=== PATIENT | female | born 1960 | race Caucasian/White ===

== ENCOUNTER 2020-04-15 16:38 | Outpatient (REF) | payer OTHER, SELFPAY ==
--- NOTE | 2020-04-15 | MM_ITS ---
EXAMINATION: MM SCREENING DIGITAL BREAST TOMOSYNTHESIS, BILATERAL CLINICAL INFORMATION: Screening. Asymptomatic. Prior bilateral reduction mammoplasty 1998. The lifetime risk of breast cancer based on the Tyrer-Cuzick Model is 3%. COMPARISON: Mammography: 02/21/2018, 01/20/2017, 01/17/2016 TECHNIQUE: Digital breast tomosynthesis is performed in both the craniocaudal and mediolateral oblique views along with computer-aided detection (CAD). Synthesized 2D images are generated from the tomosynthesis. FINDINGS: There are scattered areas of fibroglandular density (ACR BI-RADS breast composition Category b). Breast tissue composition borders on predominantly fatty. Background fibroglandular and stromal densities are stable. Again, there are benign round calcifications in the bilateral superficial anterior breasts consistent with the prior reduction mammoplasty. There is no interval mass or architectural abnormality or abnormal calcifications. The axilla are unremarkable. IMPRESSION: No significant changes from prior studies. ASSESSMENT: BI-RADS 2: Benign RECOMMENDATION: Routine annual mammography screening. This patient's information was entered into a reminder system with a target due date for their next mammogram.
== END 2020-04-15 16:39 | disposition home or self-care (01) ==
LOC: HO.MAMMO 16:38
PROVIDERS: Visit Provider Nurse Practitioner Family
DX: Z12.31 Encounter for screening mammogram for malignant neoplasm of breast (principal)
CPT/HCPCS: 77063; 77067

== ENCOUNTER 2020-05-02 16:44 | Outpatient (REF) | payer OTHER, SELFPAY | END 2020-05-02 16:45 | disposition home or self-care (01) | LOC: HO.LAB 16:44 | PROVIDERS: PCP Nurse Practitioner Family; Visit Provider Internal Medicine | DX: Z20.828 Contact with and (suspected) exposure to other viral communicable diseases (principal) | CPT/HCPCS: C9803; U0003 ==

== ENCOUNTER 2020-05-31 12:54 | Outpatient (REF) | payer OTHER, SELFPAY | END 2020-05-31 12:55 | disposition home or self-care (01) | LOC: HO.LAB 12:54 | PROVIDERS: Visit Provider Internal Medicine | DX: Z20.828 Contact with and (suspected) exposure to other viral communicable diseases (principal) | CPT/HCPCS: C9803; U0003 ==

== ENCOUNTER → 2020-10-28 07:45 | Outpatient (BNVA) | payer OTHER, SELFPAY | PROVIDERS: Visit Provider Physician Assistant ==

== ENCOUNTER 2021-01-20 13:39 | Outpatient (REF) | payer OTHER, SELFPAY | END 2021-01-20 13:40 | disposition home or self-care (01) | LOC: HO.LNP 13:39 | PROVIDERS: Visit Provider Physician Assistant | DX: A04.8 Other specified bacterial intestinal infections (principal) | CPT/HCPCS: 87338 ==

== ENCOUNTER 2021-02-03 07:28 | Outpatient (REF) | payer OTHER, SELFPAY ==
[2021-02-03 09:44] LABS: MANUAL DIFF FLAG NO
[2021-02-03 09:58] LABS: Basophils Percent Auto 0.3 % (0-2); Eosinophils Absolute Auto 0.1 X10*3/uL (0.0-0.4); Eosinophils Percent Auto 0.8 % (0-4); Hematocrit 39.4 % (37-47); Hemoglobin 12.8 g/dl (12.0-16.0); Imm Gran Abs Auto 0.02 X10*3/uL (0.00-0.03); Imm Gran Pct Auto 0.3 % (0.0-0.4); Lymphocytes Absolute Auto 1.8 X10*3/uL (1.2-4.9); Lymphocytes Percent Auto 22.6 % (20-40); Mean Corpuscular HGB Conc 32.5 g/dl (31.0-35.0); Mean Corpuscular Hemoglobin 30.2 pg (27.0-33.0); Mean Corpuscular Volume 92.9 fL (80-98); Monocytes Absolute Auto 0.5 X10*3/uL (0.1-1.2); Monocytes Percent Auto 5.9 % (2-11); Neutrophils Absolute Auto 5.6 X10*3/uL (2.0-8.3); Neutrophils Percent Auto 70.1 % (45-73); Platelet Count 248 X10*3/uL (160-400); Red Blood Count 4.24 X10*6/uL (4.20-5.50); Red Cell Distribution Width 11.8 % (11.0-16.0)
[2021-02-03 10:09] LABS: Alanine Aminotransferase 17 U/L (0-31); Albumin Level 4.1 g/dL (3.5-5.0); Alkaline Phosphatase 141 U/L (39-117); Anion Gap 13 (12-20); Aspartate Amino Transferase 16 U/L (5-31); Bilirubin Total 0.2 mg/dL (0.0-1.0); Blood Urea Nitrogen 17 mg/dL (9-16); Calcium 9.1 mg/dL (8.4-10.2); Carbon Dioxide 28 mmol/L (22-29); Chloride 104 mmol/L (96-108); Estimated Glomerular Filt Rate > 60; Glucose Random 246 mg/dL (60-115); Potassium 4.9 mmol/L (3.3-5.1); Sodium 140 mmol/L (135-145); Total Protein 7.2 g/dL (6.5-8.0)
[2021-02-03 10:32] LABS: Thyroid Stimulating Hormone 1.11 uIU/mL (0.32-4.0)
== END 2021-02-03 07:29 | disposition home or self-care (01) ==
LOC: HO.LAB 07:28
PROVIDERS: PCP Nurse Practitioner Family; Visit Provider Physician Assistant
DX: R10.11 Right upper quadrant pain (principal); A04.8 Other specified bacterial intestinal infections; K59.09 Other constipation; K62.5 Hemorrhage of anus and rectum
CPT/HCPCS: 36415; 80053; 84443; 85025

== ENCOUNTER 2021-02-14 08:54 | Outpatient (REF) | payer OTHER, SELFPAY ==
--- NOTE | ~2021-02-14 | US_ITS ---
EXAMINATION: US ABDOMEN COMPLETE CLINICAL INFORMATION: Abdominal bloating. COMPARISON: CT abdomen and pelvis 05/31/2014. KUB 06/13/2014. Renal ultrasound 01/09/2014. Abdominal ultrasound 04/14/2010. TECHNIQUE: Real-time imaging of the abdominal viscera. FINDINGS: PANCREAS: Normal. ABDOMINAL AORTA: The proximal, mid, and distal segments are normal in caliber. INFERIOR VENA CAVA: Visualized portions are normal. LIVER: The liver is normal in size. The liver contour is normal. No focal hepatic lesion. Diffuse increased echogenicity. Mild prominence of the intrahepatic ductal system. GALLBLADDER: Normal. The gallbladder is physiologically distended without evidence of stones, sludge, polyps, wall thickening or pericholecystic fluid. COMMON BILE DUCT: Normal in caliber measuring 0.44 cm in diameter. RIGHT KIDNEY: Normal. No hydronephrosis. No renal calculi or focal parenchymal lesions. The kidney measures 10.2 cm in maximum dimension. LEFT KIDNEY mid pole nonobstructing stone measures: 2 mm. No hydronephrosis. No other renal calculi or focal parenchymal lesions. The kidney measures 12.1 cm in maximum dimension. SPLEEN: Normal. The spleen measures 10.4 cm in maximum dimension. FREE FLUID: None. US/US abdomen complete IMPRESSION: No gallstones. Nonobstructing left renal calculus. Changes of hepatic steatosis. There is mild prominence of the intrahepatic biliary ductal radicals of uncertain significance. No choledocholithiasis or gross mass. Consider MRI with MRCP for further assessment especially if there are abnormal LFTs.
== END 2021-02-14 08:55 | disposition home or self-care (01) ==
LOC: HO.HMGCX 08:54
PROVIDERS: PCP Nurse Practitioner Family; Visit Provider Nurse Practitioner Family
DX: R14.0 Abdominal distension (gaseous) (principal)
CPT/HCPCS: 76700

== ENCOUNTER 2021-02-17 10:41 | Outpatient (REF) | payer OTHER, SELFPAY | END 2021-02-17 10:42 | disposition home or self-care (01) | LOC: HO.LNP 10:41 | PROVIDERS: Visit Provider Physician Assistant | DX: A04.8 Other specified bacterial intestinal infections (principal) | CPT/HCPCS: 87338 ==

== ENCOUNTER 2021-03-10 12:10 | Day surgery (SDC) | payer OTHER, SELFPAY ==
[2021-03-05 15:01] VITALS: BMI 31.5
--- NOTE | 2021-03-07 10:18 | P.CONAN_ITS ---
Documented by User: Gina Abbott NP 03/07/21 10:19 HPI - Anesthesia Eval Consult details Narrative: 60yo F for Upper Endoscopy and Colonoscopy PMFSH Active Problems Active Problems: All Active Problems (Updated 03/05/21 @ 14:56 by Mariana Mckeon RN) H. pylori infection (Acute) Rheumatoid arthritis flare (Acute) Chronic constipation (Acute) Diabetes (Acute) Past Medical History Medical History Anxiety Chronic constipation Diabetes Elevated cholesterol GERD (gastroesophageal reflux disease) Family History Family History Mother Diabetes Father Diabetes Prostate cancer Sister Diabetes Liver cancer Surgical History Surgical History H/O colonoscopy Hx of cystoscopy Hx of lithotripsy Social History Social History Household Members: None Alcohol intake: never Patient Tobacco Use Status: Tobacco use Unknown Use of substances other than those prescribed or required for medical reasons: No Have you been hit, kicked, punched, or otherwise hurt by someone within the past year? 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 Allergies Allergy/AdvReac Type Severity Reaction Status Date / Time metformin [METFORMIN] Allergy Unknown DIARRHEA/STOMACH Verified 02/14/21 10:33 PAIN Home Medications Medication Instructions Recorded Confirmed Last Taken Type atorvastatin 40 mg tablet 40 mg PO DAILY 10/28/20 03/05/21 Unknown History bupropion HCl 300 mg 24 hr tablet, 300 mg PO QAM 10/28/20 03/05/21 03/10/21 History extended release calcium carbonate 300 mg (750 mg) 300 mg PO BID 10/28/20 03/05/21 Unknown History chewable tablet (Calcium Antacid) dulaglutide 3 mg/0.5 mL 3 mg SUBCUT QWEEK 10/28/20 03/05/21 Unknown History subcutaneous pen injector (Trulicity) etanercept 50 mg/mL (1 mL) 50 mg SUBCUT QWEEK 10/28/20 03/05/21 Unknown History subcutaneous syringe (Enbrel) folic acid 1 mg tablet 1 mg PO DAILY 10/28/20 03/05/21 Unknown History glipizide 10 mg tablet 10 mg PO DAILY 10/28/20 03/05/21 Unknown History lisinopril 10 mg tablet 10 mg PO DAILY 10/28/20 03/05/21 Unknown History lorazepam 0.5 mg tablet 0.5 mg PO DAILY PRN 10/28/20 03/05/21 Unknown History magnesium 200 mg tablet 400 mg PO DAILY tab 10/28/20 03/05/21 Unknown History multivitamin with minerals-folic 1 tab PO DAILY 10/28/20 03/05/21 Unknown History acid 0.4 mg tablet (Adult One Daily Multivitamin) Exam Exam Date and Time: March 07, 2021 1018 Height,Weight and Vital Signs: Height 5 ft 1 in Weight 75.75 kg Pertinent Lab Results Pertinent Lab Results: Laboratory Tests 02/03/21 02/03/21 09:00 09:00 WBC 8.0 Hgb 12.8 Hct 39.4 Plt Count 248 Sodium 140 Potassium 4.9 Chloride 104 Carbon Dioxide 28 BUN 17 H Creatinine 0.90 Assessment and Plan Assessment Anesthesia Assessment: Chart Reviewed Documented by User: Sandra Blanco MD 03/10/21 14:43 [facility] Past Medical History Medical History Anxiety Chronic constipation Diabetes Elevated cholesterol GERD (gastroesophageal reflux disease) Family History Family History Mother Diabetes Father Diabetes Prostate cancer Sister Diabetes Liver cancer Family history of problems with anesthesia: No Surgical History Surgical History H/O colonoscopy Hx of cystoscopy Hx of lithotripsy History of Problems with Anesthesia: No Social History Social History Household Members: None Alcohol intake: never Patient Tobacco Use Status: Tobacco use Unknown Use of substances other than those prescribed or required for medical reasons: No Have you been hit, kicked, punched, or otherwise hurt by someone within the past year? 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 Allergies Allergy/AdvReac Type Severity Reaction Status Date / Time metformin [METFORMIN] Allergy Unknown DIARRHEA/STOMACH Verified 02/14/21 10:33 PAIN Home Medications Medication Instructions Recorded Confirmed Last Taken Type atorvastatin 40 mg tablet 40 mg PO DAILY 10/28/20 03/05/21 Unknown History bupropion HCl 300 mg 24 hr tablet, 300 mg PO QAM 10/28/20 03/05/21 03/10/21 History extended release calcium carbonate 300 mg (750 mg) 300 mg PO BID 10/28/20 03/05/21 Unknown History chewable tablet (Calcium Antacid) dulaglutide 3 mg/0.5 mL 3 mg SUBCUT QWEEK 10/28/20 03/05/21 Unknown History subcutaneous pen injector (Trulicity) etanercept 50 mg/mL (1 mL) 50 mg SUBCUT QWEEK 10/28/20 03/05/21 Unknown History subcutaneous syringe (Enbrel) folic acid 1 mg tablet 1 mg PO DAILY 10/28/20 03/05/21 Unknown History glipizide 10 mg tablet 10 mg PO DAILY 10/28/20 03/05/21 Unknown History lisinopril 10 mg tablet 10 mg PO DAILY 10/28/20 03/05/21 Unknown History lorazepam 0.5 mg tablet 0.5 mg PO DAILY PRN 10/28/20 03/05/21 Unknown History magnesium 200 mg tablet 400 mg PO DAILY tab 10/28/20 03/05/21 Unknown History multivitamin with minerals-folic 1 tab PO DAILY 10/28/20 03/05/21 Unknown History acid 0.4 mg tablet (Adult One Daily Multivitamin) Exam Height,Weight and Vital Signs: Height 5 ft 1 in Weight 75.75 kg Vital Signs Temp Pulse Resp BP Pulse Ox 03/10/21 12:48 98.1 F 94 16 154/90 H 98 Pertinent Lab Results Pertinent Lab Results: Laboratory Tests 02/03/21 02/03/21 09:00 09:00 WBC 8.0 Hgb 12.8 Hct 39.4 Plt Count 248 Sodium 140 Potassium 4.9 Chloride 104 Carbon Dioxide 28 BUN 17 H Creatinine 0.90 Lab Results 03/10/21 Range/Units 12:53 POC Glucose 127 H (60-115) mg/dL Airway Mallampati Class: II TM Dist: >3cm Neck ROM: Full Partial: Upper Heart: RRR Lungs: CTAB Assessment and Plan Assessment Anesthesia Assessment: Anesthesia Plan Discussed Final Anesthetic Review Family History of Problems with Anesthesia: No History of Problems with Anesthesia: No NPO: Yes ASA Class: II Final Preanesthetic Review: No Changes in Pt Med Stat, Meds/Allgs Chart Reviewed, Consent Obtained/Reviewed and Anes Risks/Benef Reviewed Patient Risk: Low Procedure Risk: Low Assessment/Block/Sedation in SS: Assess/Block/Sedation-SS Anesthetic Plan Anesthetic Plan: MAC: Disposition: Standard PACU
[2021-03-10 12:48] VITALS: BP 154/90; PULSE 94; RESP 16; TEMP 36.7; O2SAT 98
[2021-03-10] MEDS: Lactated Ringers 1,000 ML 100 ML IVCONT (12:54)
[2021-03-10 12:58] LABS: Glucose, Whole Blood 127 mg/dL (60-115)
--- NOTE | 2021-03-10 13:07 | MHC.SHP ---
Pre-Procedural Eval Section A Date of Service: 03/10/21 The patient is an INPATIENT: No The History & Physical has been completed within 30 days and I have reviewed it.: No Section B Chief Complaint: h pylori infection, Constipation Details of Present Illness: Colon cancer screening, abdominal pain, constipation Relevant Family History (Specify if Yes): Yes Relevant Social History: None Present Medications: see Short Stay Collaborative assessment Medical History: Significant History (Chronic constipation Diabetes) History of Previous Operations: Relevant previous surgery/procedure and date(s) (hx of colonoscopy & cystoscopy, hx of lithotripsy) Allergies: Allergies Allergy/AdvReac Type Severity Reaction Status Date / Time metformin [METFORMIN] Allergy Unknown DIARRHEA/STOMACH Verified 02/14/21 10:33 PAIN Review of Systems Sugical H&P ROS: Negative: Constitution, Cardiovascular and Respiratory and Yes, Specify: Gastrointestinal (abd pain, constipation) Exam Surgical H&P Exam: Normal: Heart, Normal: Lungs, Normal: Extremities and Normal: Abdomen Plan Diagnosis/Plan: Unchanged I have reviewed the history and physical and performed a pertinent physical examination on my patient. No changes have occurred unless specified.
--- NOTE | 2021-03-10 13:13 | PM.OP ---
Brief Operative Note Date of Service: 03/10/21 Pre-op diagnosis: Colon cancer screening, constipation, history of H pylori infection Post-op diagnosis: other (GERD, gastritis, colon polyps, diverticulosis) Procedure: FLEXIBLE TRANSORAL UPPER GASTROINTESTINAL ENDOSCOPY WITH BIOPSIES AND COLONOSCOPY TILL CECUM WITH SNARE POLYPECTOMY UPPER ENDOSCOPY Consent: Indications for the procedure and potential complications of bleeding, perforation, reaction to medications and missed diagnosis were discussed with the patient and informed consent was obtained. Instrument: Olympus GIF H 190 mid size upper endoscope Monitoring: Vital signs and clinical assessment, continuous EKG monitoring, Pulse oximetry, Carbon Dioxide monitoring and blood pressure monitoring were done throughout the procedure. Procedure: The patient was placed in the left lateral decubitis position and pre-procedure medications were administered and a bite block was placed. The endoscope was inserted into the mouth and advanced under direct vision to the third part of duodenum. A careful inspection was made as the upper endoscope was withdrawn including a retroflexed examination of the proximal stomach; Findings and interventions are described below. Findings: Larynx: Normal Esophagus: Tortuous esophagus with increased tertiary contractions without stricture or ring - biopsies were obtained from proximal esophagus to check for EOE. GE junction at 35 cms. No esophagitis or Sorensen's. Stomach: Mild gastric erythema. Biopsies were obtained. Grade 2 flap valve on retroflexed examination of the cardia. Duodenum: Normal bulb and descending duodenum. Intervention: Biopsies as noted above COLONOSCOPY PROCEDURE NOTE Consent: Indications for the procedure and potential complications of bleeding, perforation, reaction to medications and missed diagnosis were discussed with the patient and informed consent was obtained. Instrument: Olympus PCF H 190 L variable stiffness pediatric colonoscope Monitoring: Vital signs and clinical assessment, intermittent blood pressure monitoring, continuous EKG monitoring, Pulse oximetry and Carbon Dioxide monitoring were done throughout the procedure. Colon withdrawl time was 25 minutes. Procedure: The patient was placed in the left lateral decubitis position and pre-procedure medications were administered. After a digital rectal examination of the ano-rectum, the video colonoscope was inserted into the rectum and advanced through the colon to the cecum. The colonoscope was slowly withdrawn in a retrograde panoramic fashion and the colon mucosa was carefully examined including a retroflexed view of the rectum. Findings and interventions are described below. Procedure Difficulty: : Without difficulty Findings: Terminal Ileum: Not evaluated Cecum: Normal Ascending Colon: Normal Transverse Colon: Two 8-10 mm sessile polyps removed with a cold snare. Descending Colon: Normal Sigmoid Colon: Moderate diverticulosis Rectum: Normal Ano-rectum: Normal Colon preparation: Good after copious irrigation Impression and Post Procedure Diagnosis: Endoscopy Findings: ESOPHAGUS: Tortuous esophagus with increased tertiary contractions without stricture or ring - biopsies were obtained from proximal esophagus to check for EOE. STOMACH: Gastritis Colonoscopy Findings: Two medium sized polyps removed Moderate diverticulosis seen in the sigmoid colon Plan: Await pathology results Patient has an appointment on 03/26/21 in the [facility] with EDVIN Harris. Repeat Colonoscopy interval based on path results - in 3 years if polyps are adenomatous and 10 years if polyps are hyperplastic. Above findings were reviewed with the patient and GERD, colon polyps and diverticulosis handouts were given in the discharge area Surgeon: Jeanie Goins MD Anesthesia: MAC (Jeff Kennedy CRNA) Was an Manager Water Wastewater used for this Procedure?: Yes Manager Water Wastewater: Cherie Rincon Estimated blood loss (mL): 0 Pathology: other (a. antrum bxs r/o h pylori b. proximal esophagus bxs r/o EOE c. transverse colon polyps) Condition: stable Disposition: PACU
--- NOTE | 2021-03-10 13:23 | W.PM.OPN ---
Operative Note Operative Note Date of Service: 03/10/21 Narrative: Pre-op diagnosis:?Colon cancer screening, constipation, history of H pylori infection Post-op diagnosis:?other (GERD, gastritis, colon polyps, diverticulosis) Procedure:? FLEXIBLE TRANSORAL UPPER GASTROINTESTINAL ENDOSCOPY WITH BIOPSIES AND COLONOSCOPY TILL CECUM WITH SNARE POLYPECTOMY UPPER ENDOSCOPY Consent:?Indications for the procedure and potential complications of bleeding, perforation, reaction to medications and missed diagnosis were discussed with the patient and informed consent was obtained. Instrument:?Olympus GIF H 190 mid size upper endoscope Monitoring: Vital signs and clinical assessment, continuous EKG monitoring, Pulse oximetry, Carbon Dioxide monitoring and blood pressure monitoring were done throughout the procedure. Procedure:?The patient was placed in the left lateral decubitis position and pre-procedure medications were administered and a bite block was placed. The endoscope was inserted into the mouth and advanced under direct vision to the third part of duodenum. A careful inspection was made as the upper endoscope was withdrawn including a retroflexed examination of the proximal stomach; Findings and interventions are described below. Findings: Larynx: Normal Esophagus: Tortuous esophagus with increased tertiary contractions without stricture or ring - biopsies were obtained from proximal esophagus to check for EOE.??GE junction at 35 cms. No esophagitis or Sorensen's. Stomach:?Mild gastric erythema. Biopsies were obtained. Grade 2 flap valve on retroflexed examination of the cardia. Duodenum:?Normal bulb and descending duodenum. Intervention:?Biopsies as noted above COLONOSCOPY PROCEDURE NOTE Consent:?Indications for the procedure and potential complications of bleeding, perforation, reaction to medications and missed diagnosis were discussed with the patient and informed consent was obtained. Instrument:?Olympus PCF H 190 L variable stiffness pediatric colonoscope Monitoring:?Vital signs and clinical assessment, intermittent blood pressure monitoring, continuous EKG monitoring, Pulse oximetry and Carbon Dioxide monitoring were done throughout the procedure. Colon withdrawl time was 25 minutes. Procedure:?The patient was placed in the left lateral decubitis position and pre-procedure medications were administered. After a digital rectal examination of the ano-rectum, the video colonoscope was inserted into the rectum and advanced through the colon to the cecum. The colonoscope was slowly withdrawn in a retrograde panoramic fashion and the colon mucosa was carefully examined including a retroflexed view of the rectum. Findings and interventions are described below. Procedure Difficulty:?: Without difficulty Findings: Terminal Ileum: Not evaluated Cecum:? Normal Ascending Colon:??Normal Transverse Colon:??Two 8-10 mm sessile polyps removed with a cold snare. Descending Colon:? Normal Sigmoid Colon:??Moderate diverticulosis Rectum:??Normal Ano-rectum:??Normal Colon preparation:? Good after copious irrigation Impression and Post Procedure Diagnosis: Endoscopy Findings: ESOPHAGUS: Tortuous esophagus with increased tertiary contractions without stricture or ring - biopsies were obtained from proximal esophagus to check for EOE. STOMACH: Gastritis Colonoscopy Findings: Two medium sized polyps removed Moderate diverticulosis seen in the sigmoid colon Plan: Await pathology results Patient has an appointment on 03/26/21 in the GI Clinic with EDVIN Harris. Repeat Colonoscopy interval based on path results - in 3 years if polyps are adenomatous and 10 years if polyps are hyperplastic. Above findings were reviewed with the patient and GERD, colon polyps and diverticulosis handouts were given in the discharge area Surgeon:?Jeanie Goins MD Anesthesia:?MAC (Jeff Kennedy CRNA) Was an Social Media Editor used for this Procedure?:?Yes Social Media Editor:?Cherie Rincon Estimated blood loss (mL):?0 Pathology:?other (a. antrum bxs r/o h pylori? b. proximal esophagus bxs r/o EOE? c. transverse colon polyps) Condition:?stable Disposition:?PACU
[2021-03-10 15:00] VITALS: BP 151/86; PULSE 99; RESP 18; TEMP 36.1; O2SAT 99
[2021-03-10 15:12] VITALS: BP 154/87; PULSE 84; RESP 20; O2SAT 99
== END 2021-03-10 15:39 | disposition home or self-care (01) ==
PROVIDERS: PCP Nurse Practitioner Family; Visit Provider Internal Medicine Gastroenterology
PROC: (CPT 45385; principal; 2021-03-10 13:30)
DX: Z12.11 Encounter for screening for malignant neoplasm of colon (principal); Z86.19 Personal history of other infectious and parasitic diseases; D12.3 Benign neoplasm of transverse colon; K57.30 Diverticulosis of large intestine without perforation or abscess without bleeding; K59.00 Constipation, unspecified; K29.50 Unspecified chronic gastritis without bleeding; K21.9 Gastro-esophageal reflux disease without esophagitis; K22.8 Other specified diseases of esophagus
CPT/HCPCS: 45385; 43239; 82947; 88305; 88342

== ENCOUNTER 2021-04-28 08:36 | Outpatient (REF) | payer OTHER, SELFPAY ==
--- NOTE | ~2021-04-28 | MM_ITS ---
EXAMINATION: MM SCREENING DIGITAL BREAST TOMOSYNTHESIS, BILATERAL CLINICAL INFORMATION: Screening. Asymptomatic. Remote prior reduction mammoplasty, 1998. The lifetime risk of breast cancer based on the Tyrer-Cuzick Model is 7%. COMPARISON: Mammography: 04/15/2020, 02/21/2018, 01/20/2017 TECHNIQUE: Digital breast tomosynthesis is performed in both the craniocaudal and mediolateral oblique views along with computer-aided detection (CAD). Synthesized 2D images are generated from the tomosynthesis. FINDINGS: There are scattered areas of fibroglandular density (ACR BI-RADS breast composition Category b). There are no significant masses, abnormal calcifications, or other abnormalities. There is minor bilateral stable scarring and some fine benign round and rim calcifications anterior breasts consistent with the prior remote reduction mammoplasty. MM/MM tomosynthesis screening BI IMPRESSION: No mammographic evidence of malignancy. ASSESSMENT: BI-RADS 2: Benign RECOMMENDATION: Routine annual mammography screening. This patient's information was entered into a reminder system with a target due date for their next mammogram.
== END 2021-04-28 08:37 | disposition home or self-care (01) ==
LOC: HO.MAMMO 08:36
PROVIDERS: Visit Provider Nurse Practitioner Family
DX: Z12.31 Encounter for screening mammogram for malignant neoplasm of breast (principal)
CPT/HCPCS: 77063; 77067

== ENCOUNTER → 2021-05-13 14:03 | Outpatient (BNVA) | payer OTHER, SELFPAY | PROVIDERS: PCP Nurse Practitioner Family; Visit Provider Nurse Practitioner ==

== ENCOUNTER 2021-10-16 11:12 | Outpatient (REF) | payer OTHER, SELFPAY ==
--- NOTE | ~2021-10-16 | XR_ITS ---
EXAMINATION: XR KNEE-BILATERAL CLINICAL INFORMATION: Rheumatoid arthritis. COMPARISON: None TECHNIQUE: 4 upright views each of both knees. FINDINGS: Right knee: Mild asymmetric decreased joint space is noted, consistent with mild osteoarthrosis at the medial compartment. The bony alignments are intact. The cortices are intact. Mild diffuse osteopenia is noted. No evidence of any articular or subarticular erosion or joint effusion present. Left knee: Mild asymmetric decreased joint space is noted at the medial compartment, consistent with mild osteoarthrosis. No evidence of any joint effusion, articular or periarticular erosion present. Soft tissues are unremarkable. XR/XR knee LT 4V IMPRESSION: Mild osteoarthrosis at medial compartment of both knees.
--- NOTE | ~2021-10-16 | XR_ITS ---
EXAMINATION: XR KNEE-BILATERAL CLINICAL INFORMATION: Rheumatoid arthritis. COMPARISON: None TECHNIQUE: 4 upright views each of both knees. FINDINGS: Right knee: Mild asymmetric decreased joint space is noted, consistent with mild osteoarthrosis at the medial compartment. The bony alignments are intact. The cortices are intact. Mild diffuse osteopenia is noted. No evidence of any articular or subarticular erosion or joint effusion present. Left knee: Mild asymmetric decreased joint space is noted at the medial compartment, consistent with mild osteoarthrosis. No evidence of any joint effusion, articular or periarticular erosion present. Soft tissues are unremarkable. XR/XR knee RT 4V IMPRESSION: Mild osteoarthrosis at medial compartment of both knees.
== END 2021-10-16 11:13 | disposition home or self-care (01) ==
LOC: HO.XRAY 11:12
PROVIDERS: PCP Nurse Practitioner Family; Visit Provider Internal Medicine Rheumatology
DX: M05.79 Rheumatoid arthritis with rheumatoid factor of multiple sites without organ or systems involvement (principal); M88.9 Osteitis deformans of unspecified bone
CPT/HCPCS: 73564

== ENCOUNTER 2021-10-17 08:40 | Outpatient (REF) | payer OTHER, SELFPAY ==
--- NOTE | ~2021-10-17 | MM_ITS ---
EXAMINATION: BONE DENSITOMETRY CLINICAL INDICATION: Other specified disorders of bone density. COMPARISON: Baseline BD dated 12/02/2018. TECHNIQUE: Using a [employer] DXA System (software version: 13.1) manufactured by [employer], dual-energy x-ray absorptiometry was performed of the lumbar spine and left hip. The images are of good technical quality. Summary results are attached. FINDINGS: AP SPINE L1-L4: Current: BMD 1.204 g/cm2, Z-score 1.3, T-score 0.2, normal, 2.5% decrease from baseline (<5% change is not significant). Baseline: BMD 1.235 g/cm2. LEFT FEMUR, NECK: Current: BMD 0.872 g/cm2, Z-score 0.0, T-score -1.2, osteopenia. Baseline: BMD 0.857 g/cm2. LEFT FEMUR, TOTAL: Current: BMD 0.984 g/cm2, Z-score 0.7, T-score -0.2, normal, 2.5% decrease from baseline (<5% change is not significant). Baseline: BMD 0.996 g/cm2. IDENTIFIED RISK FACTORS: Rheumatoid arthritis, history of fracture (adult). Early menopause, secondary osteoporosis, hysterectomy, bilateral oophorectomy. HISTORY OF FRACTURE: Other. MEDICATIONS: Calcium supplements or multivitamin, vitamin D. MM/XR DEXA axial skeleton IMPRESSION: 1. DIAGNOSIS: Osteopenia based on the lowest T-score value of -1.2 in the femoral neck applying World Health Organization criteria. 2. 10-YEAR FRACTURE RISK PREDICTION, FRAX: Major osteoporotic fracture (clinical spine, forearm, hip or shoulder) 9.4%. Hip fracture 0.8%. 3. Treatment Recommendations: NOF guidelines recommend consideration for treatment in postmenopausal women and men age 50 and older presenting with the following: -A hip or vertebral (clinical or morphometric) fracture. -T-score less than or equal to -2.5 at the femoral neck or spine after appropriate evaluation to exclude secondary causes. -Low bone mass at the hip or spine and a 10-year fracture probability by FRAX of greater than or equal to 3% for hip fracture or greater than or equal to 20% for major osteoporotic fracture based on the [place] adapted WHO algorithm. 4. Other Recommendations: All treatment decisions require clinical judgment and consideration of individual patient factors, including patient preferences, comorbidities, previous drug use, risk factors not captured in the FRAX model (e.g. frailty, falls, vitamin D deficiency, increased bone turnover, interval significant decline in bone density) and possible under or overestimation of fracture risk by FRAX. Additional medical evaluation for secondary cause of low bone mineral density may be appropriate. FUTURE SCAN RECOMMENDATION: People with diagnosed cases of osteoporosis or at high risk for fracture should have regular bone mineral density tests. For patients eligible for Medicare, routine testing is allowed once every 2 years. The testing frequency can be increased to one year for patients who have rapidly progressing disease, those who are receiving or discontinuing medical therapy to restore bone mass, or have additional risk factors.
== END 2021-10-17 08:41 | disposition home or self-care (01) ==
LOC: HO.MAMMO 08:40
PROVIDERS: PCP Nurse Practitioner Family; Visit Provider Internal Medicine Rheumatology
DX: Z13.820 Encounter for screening for osteoporosis (principal); M85.852 Other specified disorders of bone density and structure, left thigh; Z78.0 Asymptomatic menopausal state
CPT/HCPCS: 77080

== ENCOUNTER 2022-05-04 08:18 | Outpatient (REF) | payer OTHER, SELFPAY ==
--- NOTE | ~2022-05-04 | MM_ITS ---
EXAMINATION: MM SCREENING DIGITAL BREAST TOMOSYNTHESIS, BILATERAL CLINICAL INFORMATION: Screening. Asymptomatic. Prior history reduction mammoplasty, 1998. COMPARISON: Mammography: 04/28/2021, 04/15/2020, 02/21/2018 TECHNIQUE: Digital breast tomosynthesis is performed in both the craniocaudal and mediolateral oblique views along with computer-aided detection (CAD). Synthesized 2D images are generated from the tomosynthesis. Additional right MLO view is provided. FINDINGS: There are scattered areas of fibroglandular density (ACR BI-RADS breast composition Category b). There are no significant masses, abnormal calcifications, or other abnormalities. There is minor scarring and fine anterior bilateral round and rim calcifications consistent with the prior reduction mammoplasty. There is no developing density or interval architectural abnormality. No significant changes. MM/MM tomosynthesis screening BI IMPRESSION: No mammographic evidence of malignancy. ASSESSMENT: BI-RADS 2: Benign RECOMMENDATION: Routine annual mammography screening. This patient's information was entered into a reminder system with a target due date for their next mammogram.
== END 2022-05-04 08:19 | disposition home or self-care (01) ==
LOC: HO.MAMMO 08:18
PROVIDERS: Visit Provider Nurse Practitioner Family
DX: Z12.31 Encounter for screening mammogram for malignant neoplasm of breast (principal)
CPT/HCPCS: 77063; 77067

== ENCOUNTER 2023-05-07 08:15 | Outpatient (REF) | payer OTHER, SELFPAY ==
--- NOTE | ~2023-05-07 | MM_ITS ---
EXAMINATION: MM SCREENING DIGITAL BREAST TOMOSYNTHESIS, BILATERAL CLINICAL INFORMATION: Screening. Asymptomatic. History of reduction mammoplasty in 1998. COMPARISON: Mammography: 05/04/2022, 04/28/2021, 04/15/2020, 02/21/2018. TECHNIQUE: Digital breast tomosynthesis is performed in both the craniocaudal and mediolateral oblique views along with computer-aided detection (CAD). Synthesized 2D images are generated from the tomosynthesis. Additional right MLO view is provided. FINDINGS: There are scattered areas of fibroglandular density (ACR BI-RADS breast composition Category b). There is minor scarring and fine anterior bilateral skin calcifications consistent with the prior reduction mammoplasty. There are no suspicious masses, suspicious grouped calcifications, or areas of architectural distortion in either breast. The parenchymal pattern is stable from prior exams. MM/MM tomosynthesis screening BI IMPRESSION: No mammographic evidence of malignancy. Stable benign findings. ASSESSMENT: BI-RADS BI-RADS 2 - Benign Findings RECOMMENDATION: Routine annual mammography screening. 1 year F/U This examination should not preclude the clinical evaluation of a suspicious palpable abnormality. This patient's information was entered into a reminder system with a target due date for their next mammogram.
== END 2023-05-07 08:16 | disposition home or self-care (01) ==
LOC: HO.MAMMO 08:15
PROVIDERS: PCP Nurse Practitioner Family; Visit Provider Nurse Practitioner Family
DX: Z12.31 Encounter for screening mammogram for malignant neoplasm of breast (principal)
CPT/HCPCS: 77063; 77067

== ENCOUNTER → 2023-05-07 08:30 | Outpatient (BNV) | payer OTHER, SELFPAY | PROVIDERS: PCP Nurse Practitioner Family; Visit Provider Radiology Diagnostic Radiology | DX: Z12.31 Encounter for screening mammogram for malignant neoplasm of breast (principal) | CPT/HCPCS: 77063; 77067 ==

== ENCOUNTER 2023-07-05 07:30 | Day surgery (SDC) | payer OTHER, SELFPAY ==
--- NOTE | 2023-07-02 08:01 | MHC.SHP ---
Pre-Procedural Eval Section A Date of Service: 07/02/23 The patient is an INPATIENT: No Changes since office visit: No Cold of Flu in the past 2 weeks, No New Medical Problems, No Changes in Medication and No Patient answered all questions The History & Physical has been completed within 30 days and I have reviewed it.: Yes Section B Chief Complaint: Age-related nuclear cataract, left eye Allergies: Allergies Allergy/AdvReac Type Severity Reaction Status Date / Time metformin [METFORMIN] Allergy Unknown DIARRHEA/STOMACH Verified 05/13/21 14:20 PAIN Plan I have reviewed the history and physical and performed a pertinent physical examination on my patient. No changes have occurred unless specified. Time Spent With Patient Time: Total time managing care of this patient today ____ minutes.
--- NOTE | 2023-07-02 08:05 | MHC.SHP ---
Pre-Procedural Eval Section A Date of Service: 07/02/23 The patient is an INPATIENT: No Changes since office visit: No Cold of Flu in the past 2 weeks, No New Medical Problems, No Changes in Medication and No Patient answered all questions The History & Physical has been completed within 30 days and I have reviewed it.: Yes Section B Chief Complaint: Age-related nuclear cataract, left eye Allergies: Allergies Allergy/AdvReac Type Severity Reaction Status Date / Time metformin [METFORMIN] Allergy Unknown DIARRHEA/STOMACH Verified 05/13/21 14:20 PAIN Plan Diagnosis/Plan: Unchanged I have reviewed the history and physical and performed a pertinent physical examination on my patient. No changes have occurred unless specified. Time Spent With Patient Time: Total time managing care of this patient today ____ minutes.
--- NOTE | 2023-07-02 09:21 | HO.ANESPROP2 ---
Documented by User: Gina Abbott NP 07/02/23 09:23 HPI - Anesthesia Eval Consult details Narrative: 62yo F for Right Cataract Multifocal with IOL Insertion Medically cleared No previous cataract on record Anesthesia Pre-Procedure Meds Is the patient on any of the following meds?: Dulaglutide (Trulicity) and Semaglutide (Ozempic) (Rybelsus PO) PMFSH Active Problems Active Problems: All Active Problems (Updated 05/13/21 @ 14:17 by KARLA Gant) Tubular adenoma of colon (Acute) GERD (gastroesophageal reflux disease) (Acute) H. pylori infection (Acute) Rheumatoid arthritis flare (Acute) Chronic constipation (Acute) Diabetes (Acute) Past Medical History Medical History Dental bridge present HTN (hypertension) Hx of renal calculi Rheumatoid arthritis Depression Anxiety Elevated cholesterol GERD (gastroesophageal reflux disease) Chronic constipation Diabetes Family History Family History Mother Diabetes Father Diabetes Prostate cancer Sister Diabetes Liver cancer Family history of problems with anesthesia: No Surgical History Surgical History H/O colonoscopy Hx of cystoscopy Hx of lithotripsy History of Problems with Anesthesia: No Social History Social History Household Members: None Are you a primary managed care analyst to a significant other at home: No Do you presently have visiting nurse or other home services: No Alcohol intake: never Comment: aware of trip hazard Patient Tobacco Use Status: Never used Tobacco Use of substances other than those prescribed or required for medical reasons: No Have you been hit, kicked, punched, or otherwise hurt by someone within the past year? 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 Allergies Allergy/AdvReac Type Severity Reaction Status Date / Time metformin [METFORMIN] Allergy Severe DIARRHEA/STOMACH Verified 07/02/23 09:20 PAIN Home Medications Medication Instructions Recorded Confirmed Last Taken Type atorvastatin 40 mg tablet 40 mg PO DAILY 10/28/20 07/02/23 Unknown History bupropion HCl 300 mg 24 hr tablet, 300 mg PO QAM 10/28/20 07/02/23 03/10/21 History extended release calcium carbonate 300 mg (750 mg) 300 mg PO BID 10/28/20 03/05/21 Unknown History chewable tablet (Calcium Antacid) lorazepam 0.5 mg tablet 0.5 mg PO DAILY PRN Anxiety 10/28/20 07/02/23 Unknown History albuterol sulfate 90 mcg/actuation inhalation 05/13/21 Unknown History aerosol inhaler aripiprazole 2 mg tablet 2 mg PO BEDTIME 05/13/21 07/02/23 Unknown History duloxetine 60 mg capsule,delayed 60 mg PO DAILY 05/13/21 07/02/23 Unknown History release lisinopril 5 mg tablet 5 mg PO DAILY 05/13/21 07/02/23 Unknown History magnesium oxide 400 mg (241.3 mg 400 mg PO DAILY 05/13/21 07/02/23 Unknown History magnesium) tablet cholecalciferol (vitamin D3) 25 25 mcg PO DAILY 07/02/23 07/02/23 Unknown History mcg (1,000 unit) capsule (Vitamin D3) glipizide 2.5 mg tablet, extended 2.5 mg PO DAILY 07/02/23 07/02/23 Unknown History release 24 hr leflunomide 20 mg tablet 20 mg PO DAILY 07/02/23 07/02/23 Unknown History semaglutide 14 mg tablet (Rybelsus) 14 mg PO DAILY 07/02/23 07/02/23 07/02/23 History 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 15 mg tablet,extended 15 mg PO DAILY 07/02/23 07/02/23 Unknown History release 24 hr (Rinvoq) Assessment and Plan Assessment Anesthesia Assessment: Chart Reviewed Final Anesthetic Review Family History of Problems with Anesthesia: No History of Problems with Anesthesia: No Documented by User: Laura Gillespie MD 07/05/23 09:05 HPI - Anesthesia Eval Anesthesia Pre-Procedure Meds If Yes to any meds - educate patient: Pt education - increased risk of aspiration PMFSH Past Medical History Medical History Dental bridge present HTN (hypertension) Hx of renal calculi Rheumatoid arthritis Depression Anxiety Elevated cholesterol GERD (gastroesophageal reflux disease) Chronic constipation Diabetes Family History Family History Mother Diabetes Father Diabetes Prostate cancer Sister Diabetes Liver cancer Surgical History Surgical History H/O colonoscopy Hx of cystoscopy Hx of lithotripsy Social History Social History Household Members: None Are you a primary managed care analyst to a significant other at home: No Do you presently have visiting nurse or other home services: No Alcohol intake: never Comment: aware of trip hazard Patient Tobacco Use Status: Never used Tobacco Use of substances other than those prescribed or required for medical reasons: No Have you been hit, kicked, punched, or otherwise hurt by someone within the past year? 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 Allergies Allergy/AdvReac Type Severity Reaction Status Date / Time metformin [METFORMIN] Allergy Severe DIARRHEA/STOMACH Verified 07/02/23 09:20 PAIN Home Medications Medication Instructions Recorded Confirmed Last Taken Type atorvastatin 40 mg tablet 40 mg PO DAILY 10/28/20 07/02/23 Unknown History bupropion HCl 300 mg 24 hr tablet, 300 mg PO QAM 10/28/20 07/02/23 03/10/21 History extended release calcium carbonate 300 mg (750 mg) 300 mg PO BID 10/28/20 03/05/21 Unknown History chewable tablet (Calcium Antacid) lorazepam 0.5 mg tablet 0.5 mg PO DAILY PRN Anxiety 10/28/20 07/02/23 Unknown History albuterol sulfate 90 mcg/actuation inhalation 05/13/21 Unknown History aerosol inhaler aripiprazole 2 mg tablet 2 mg PO BEDTIME 05/13/21 07/02/23 Unknown History duloxetine 60 mg capsule,delayed 60 mg PO DAILY 05/13/21 07/02/23 Unknown History release lisinopril 5 mg tablet 5 mg PO DAILY 05/13/21 07/02/23 Unknown History magnesium oxide 400 mg (241.3 mg 400 mg PO DAILY 05/13/21 07/02/23 Unknown History magnesium) tablet cholecalciferol (vitamin D3) 25 25 mcg PO DAILY 07/02/23 07/02/23 Unknown History mcg (1,000 unit) capsule (Vitamin D3) glipizide 2.5 mg tablet, extended 2.5 mg PO DAILY 07/02/23 07/02/23 Unknown History release 24 hr leflunomide 20 mg tablet 20 mg PO DAILY 07/02/23 07/02/23 Unknown History semaglutide 14 mg tablet (Rybelsus) 14 mg PO DAILY 07/02/23 07/02/23 07/02/23 History 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 15 mg tablet,extended 15 mg PO DAILY 07/02/23 07/02/23 Unknown History release 24 hr (Rinvoq) Exam Airway Mallampati Class: II TM Dist: >3cm Neck ROM: Full Heart: rrr Lungs: cta Assessment and Plan Assessment Anesthesia Assessment: Anesthesia Plan Discussed Final Anesthetic Review NPO: Yes ASA Class: III Final Preanesthetic Review: No Changes in Pt Med Stat, Meds/Allgs Chart Reviewed, Consent Obtained/Reviewed and Anes Risks/Benef Reviewed Patient Risk: Intermediate Procedure Risk: Low Anesthetic Plan Anesthetic Plan: MAC: Disposition: Standard PACU
[2023-07-02 09:56] VITALS: BMI 30.3
[2023-07-05 08:22] VITALS: BP 125/77; PULSE 84; RESP 20; TEMP 36.4; O2SAT 97
--- NOTE | 2023-07-05 09:55 | HO.PNOPHT ---
Ophthalmology Procedure Procedure Date of Service: 07/05/23 Ophthalmology Viscoelastic: Ludivina Escobart Dual Pack Pro Ophthalmology Lenses: TECTABITHA [id number] (21) Procedure Notes: PREOPERATIVE DIAGNOSIS: Decreased visual acuity right eye secondary to cataract POSTOPERATIVE DIAGNOSIS: Same PROCEDURE: Right cataract extraction with intraocular lens insertion SURGEON: Altaf Moses M.D. ANESTHESIA: Topical/MAC ESTIMATED BLOOD LOSS: None COMPLICATIONS: None After obtaining informed consent, the patient was brought to the operating room suite and placed in the supine position. After adequate sedation per anesthesia, topical drops of Tetracaine were given to the right eye. The eye was then prepped and draped in the usual sterile fashion. The operating room microscope was then positioned over the operative eye and a lid speculum placed. A paracentesis was created. Viscoelastic was then instilled into the anterior chamber. A three plane incision was then created temporally, utilizing a 2.85 mm keratome. Capsulotomy forceps were then utilized to create a circular tear capsulotomy. Hydrodissection and hydrodelineation were carried out until adequate mobilization of the nucleus occurred. Phacoemulsification was then utilized to remove the dense central nucleus followed by removal of the cortical material utilizing the automated aspiration irrigation unit. Viscoelastic was instilled into the posterior capsular bag followed by placement of a posterior chamber intraocular lens without difficulty. The residual Viscoelastic was then removed utilizing the automated IA machine. The wound was checked and found to be watertight. The patient tolerated the procedure well and the lid speculum was removed. Intracameral injection of Vigamox 0.1 mL followed by a subtenon injection of Kenalog-40 0.2 mL were administered. The patient will be seen in the a.m.
[2023-07-05 10:26] VITALS: BP 135/71; PULSE 76; RESP 16; TEMP 36.1; O2SAT 97
== END 2023-07-05 10:39 | disposition home or self-care (01) ==
PROVIDERS: PCP Nurse Practitioner Family; Visit Provider Ophthalmology
PROC: (CPT 66985; principal; 2023-07-05 09:30)
DX: H25.11 Age-related nuclear cataract, right eye (principal); H52.4 Presbyopia; H40.013 Open angle with borderline findings, low risk, bilateral; H18.413 Arcus senilis, bilateral; H43.399 Other vitreous opacities, unspecified eye; H11.133 Conjunctival pigmentations, bilateral; G89.29 Other chronic pain; M05.79 Rheumatoid arthritis with rheumatoid factor of multiple sites without organ or systems involvement; M79.7 Fibromyalgia; E11.9 Type 2 diabetes mellitus without complications; J45.30 Mild persistent asthma, uncomplicated; E78.2 Mixed hyperlipidemia; F32.A Depression, unspecified; F41.1 Generalized anxiety disorder; Z79.84 Long term (current) use of oral hypoglycemic drugs; Z79.51 Long term (current) use of inhaled steroids; Z79.899 Other long term (current) drug therapy; Z88.8 Allergy status to other drugs, medicaments and biological substances
CPT/HCPCS: 66984; 82947; J2250; J3010; J3301; V2632

== ENCOUNTER 2023-07-19 07:04 | Day surgery (SDC) | payer OTHER, SELFPAY ==
[2023-07-02 09:58] VITALS: BMI 30.3
--- NOTE | 2023-07-15 11:53 | HO.ANESPROP2 ---
Documented by User: Gina Abbott NP 07/15/23 11:53 HPI - Anesthesia Eval Consult details Narrative: 62yo F for Left Cataract Extraction IOL Insertion Medically cleared Right eye 07/05/23: Fent 50, Midaz 2 PMFSH Active Problems Active Problems: All Active Problems (Updated 07/02/23 @ 10:05 by Rachael Haynes, LAMAR) Tubular adenoma of colon (Acute) GERD (gastroesophageal reflux disease) (Acute) Rheumatoid arthritis flare (Acute) H. pylori infection (Acute) Chronic constipation (Acute) Diabetes (Acute) Past Medical History Medical History Dental bridge present HTN (hypertension) Hx of renal calculi Rheumatoid arthritis Depression Anxiety Elevated cholesterol GERD (gastroesophageal reflux disease) Chronic constipation Diabetes Family History Family History Mother Diabetes Father Diabetes Prostate cancer Sister Diabetes Liver cancer Family history of problems with anesthesia: No Surgical History Surgical History H/O colonoscopy Hx of cystoscopy Hx of lithotripsy History of Problems with Anesthesia: No Social History Social History Household Members: None Are you a primary resident care coordinator to a significant other at home: No Do you presently have visiting nurse or other home services: No Alcohol intake: never Comment: aware of trip hazard Patient Tobacco Use Status: Never used Tobacco Use of substances other than those prescribed or required for medical reasons: No Have you been hit, kicked, punched, or otherwise hurt by someone within the past year? 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 Allergy/AdvReac Type Severity Reaction Status Date / Time metformin [METFORMIN] Allergy Severe DIARRHEA/STOMACH Verified 07/19/23 08:27 PAIN Home Medications Medication Instructions Recorded Confirmed Last Taken Type atorvastatin 40 mg tablet 40 mg PO DAILY 10/28/20 07/02/23 Unknown History bupropion HCl 300 mg 24 hr tablet, 300 mg PO QAM 10/28/20 07/02/23 03/10/21 History extended release calcium carbonate 300 mg (750 mg) 300 mg PO BID 10/28/20 03/05/21 Unknown History chewable tablet (Calcium Antacid) lorazepam 0.5 mg tablet 0.5 mg PO DAILY PRN Anxiety 10/28/20 07/02/23 Unknown History albuterol sulfate 90 mcg/actuation inhalation 05/13/21 Unknown History aerosol inhaler aripiprazole 2 mg tablet 2 mg PO BEDTIME 05/13/21 07/02/23 Unknown History duloxetine 60 mg capsule,delayed 60 mg PO DAILY 05/13/21 07/02/23 Unknown History release lisinopril 5 mg tablet 5 mg PO DAILY 05/13/21 07/02/23 Unknown History magnesium oxide 400 mg (241.3 mg 400 mg PO DAILY 05/13/21 07/02/23 Unknown History magnesium) tablet cholecalciferol (vitamin D3) 25 25 mcg PO DAILY 07/02/23 07/02/23 Unknown History mcg (1,000 unit) capsule (Vitamin D3) glipizide 2.5 mg tablet, extended 2.5 mg PO DAILY 07/02/23 07/02/23 Unknown History release 24 hr leflunomide 20 mg tablet 20 mg PO DAILY 07/02/23 07/02/23 Unknown History semaglutide 14 mg tablet (Rybelsus) 14 mg PO DAILY 07/02/23 07/19/23 07/16/23 History 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 15 mg tablet,extended 15 mg PO DAILY 07/02/23 07/02/23 Unknown History release 24 hr (Rinvoq) Exam Height,Weight and Vital Signs: Height 5 ft 1.5 in Weight 73.936 kg Assessment and Plan Assessment Anesthesia Assessment: Chart Reviewed Final Anesthetic Review Family History of Problems with Anesthesia: No History of Problems with Anesthesia: No Documented by User: Sandra Blanco MD 07/19/23 08:45 HPI - Anesthesia Eval Anesthesia Pre-Procedure Meds Is the patient on any of the following meds?: Semaglutide (Ozempic) (Last dose 07/16/23) If Yes to any meds - educate patient: Pt education - increased risk of aspiration PMFSH Active Problems Active Problems: All Active Problems (Updated 07/19/23 @ 08:21 by Sandra Blanco MD) Tubular adenoma of colon (Acute) GERD (gastroesophageal reflux disease) (Acute) Rheumatoid arthritis flare (Acute) H. pylori infection (Acute) Chronic constipation (Acute) Diabetes (Acute) Past Medical History Medical History Dental bridge present HTN (hypertension) Hx of renal calculi Rheumatoid arthritis Depression Anxiety Elevated cholesterol GERD (gastroesophageal reflux disease) Chronic constipation Diabetes Family History Family History Mother Diabetes Father Diabetes Prostate cancer Sister Diabetes Liver cancer Family history of problems with anesthesia: No Surgical History Surgical History H/O colonoscopy Hx of cystoscopy Hx of lithotripsy History of Problems with Anesthesia: No Social History Social History Household Members: None Are you a primary resident care coordinator to a significant other at home: No Do you presently have visiting nurse or other home services: No Alcohol intake: never Comment: aware of trip hazard Patient Tobacco Use Status: Never used Tobacco Use of substances other than those prescribed or required for medical reasons: No Have you been hit, kicked, punched, or otherwise hurt by someone within the past year? 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 Allergy/AdvReac Type Severity Reaction Status Date / Time metformin [METFORMIN] Allergy Severe DIARRHEA/STOMACH Verified 07/19/23 08:27 PAIN Home Medications Medication Instructions Recorded Confirmed Last Taken Type atorvastatin 40 mg tablet 40 mg PO DAILY 10/28/20 07/02/23 Unknown History bupropion HCl 300 mg 24 hr tablet, 300 mg PO QAM 10/28/20 07/02/23 03/10/21 History extended release calcium carbonate 300 mg (750 mg) 300 mg PO BID 10/28/20 03/05/21 Unknown History chewable tablet (Calcium Antacid) lorazepam 0.5 mg tablet 0.5 mg PO DAILY PRN Anxiety 10/28/20 07/02/23 Unknown History albuterol sulfate 90 mcg/actuation inhalation 05/13/21 Unknown History aerosol inhaler aripiprazole 2 mg tablet 2 mg PO BEDTIME 05/13/21 07/02/23 Unknown History duloxetine 60 mg capsule,delayed 60 mg PO DAILY 05/13/21 07/02/23 Unknown History release lisinopril 5 mg tablet 5 mg PO DAILY 05/13/21 07/02/23 Unknown History magnesium oxide 400 mg (241.3 mg 400 mg PO DAILY 05/13/21 07/02/23 Unknown History magnesium) tablet cholecalciferol (vitamin D3) 25 25 mcg PO DAILY 07/02/23 07/02/23 Unknown History mcg (1,000 unit) capsule (Vitamin D3) glipizide 2.5 mg tablet, extended 2.5 mg PO DAILY 07/02/23 07/02/23 Unknown History release 24 hr leflunomide 20 mg tablet 20 mg PO DAILY 07/02/23 07/02/23 Unknown History semaglutide 14 mg tablet (Rybelsus) 14 mg PO DAILY 07/02/23 07/19/23 07/16/23 History 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 15 mg tablet,extended 15 mg PO DAILY 07/02/23 07/02/23 Unknown History release 24 hr (Rinvoq) Exam Height,Weight and Vital Signs: Height 5 ft 1.5 in Weight 73.936 kg Vital Signs Temp Pulse Resp BP Pulse Ox O2 Del Method 07/19/23 08:21 98.1 F 79 18 144/74 H 97 Room Air Pertinent Lab Results Pertinent Lab Results: Lab Results 07/19/23 Range/Units 08:25 POC Glucose 137 H (60-115) mg/dL Airway Mallampati Class: II TM Dist: >3cm Neck ROM: Full Loose/Missing/Broken Teeth: No (Permanent bridge. Denies broken, loose, missing teeth) Heart: RRR Lungs: CTAB Assessment and Plan Assessment Anesthesia Assessment: Anesthesia Plan Discussed Final Anesthetic Review Family History of Problems with Anesthesia: No History of Problems with Anesthesia: No NPO: Yes ASA Class: III Final Preanesthetic Review: No Changes in Pt Med Stat, Meds/Allgs Chart Reviewed, Consent Obtained/Reviewed and Anes Risks/Benef Reviewed Patient Risk: Intermediate Procedure Risk: Low Assessment/Block/Sedation in SS: Assess/Block/Sedation-SS Anesthetic Plan Anesthetic Plan: MAC: Disposition: Standard PACU
--- NOTE | 2023-07-16 08:07 | MHC.SHP ---
Pre-Procedural Eval Section A Date of Service: 07/16/23 The patient is an INPATIENT: No Changes since office visit: No Cold of Flu in the past 2 weeks, No New Medical Problems, No Changes in Medication and No Patient answered all questions The History & Physical has been completed within 30 days and I have reviewed it.: Yes Section B Chief Complaint: Age-related nuclear cataract, right eye Allergies: Allergies Allergy/AdvReac Type Severity Reaction Status Date / Time metformin [METFORMIN] Allergy Severe DIARRHEA/STOMACH Verified 07/02/23 09:20 PAIN Plan Diagnosis/Plan: Unchanged I have reviewed the history and physical and performed a pertinent physical examination on my patient. No changes have occurred unless specified. Time Spent With Patient Time: Total time managing care of this patient today ____ minutes.
[2023-07-19] MEDS: Lactated Ringers 500 ML 50 ML IV (08:03)
[2023-07-19] MEDS: Ketorolac Tromethamine 0.5% Op 5 ML DROPS 1 DROP EYE-LEFT ×3 (08:04→08:11)
[2023-07-19] MEDS: Cyclopentolate 1 % Ophth Sol 2 ML DRPBTL 1 DROP EYE-LEFT ×3 (08:04→08:11)
[2023-07-19] MEDS: Tropicamide 1 % Ophth Sol 3 ML BTL 1 DROP EYE-LEFT ×3 (08:04→08:11)
[2023-07-19] MEDS: Phenylephrine HCL 2.5% Oph SoL 2 ML BOTTLE 1 DROP EYE-LEFT ×3 (08:04→08:11)
[2023-07-19] MEDS: Tetracaine HCl/PF 0.5% Oph Sol 4 ML DROPS 1 DROP EYE-LEFT (08:04)
[2023-07-19 08:21] VITALS: BP 144/74; PULSE 79; RESP 18; TEMP 36.7; O2SAT 97
[2023-07-19 08:30] LABS: Glucose, Whole Blood 137 mg/dL (60-115)
[2023-07-19 08:37] VITALS: BMI 30.7
--- NOTE | 2023-07-19 09:23 | MHC.SHP ---
Pre-Procedural Eval Section A Date of Service: 07/19/23 The patient is an INPATIENT: No Changes since office visit: No Cold of Flu in the past 2 weeks, No New Medical Problems, No Changes in Medication and No Patient answered all questions The History & Physical has been completed within 30 days and I have reviewed it.: Yes Section B Chief Complaint: Age-related nuclear cataract, right eye Allergies: Allergies Allergy/AdvReac Type Severity Reaction Status Date / Time metformin [METFORMIN] Allergy Severe DIARRHEA/STOMACH Verified 07/19/23 08:27 PAIN Plan Diagnosis/Plan: Unchanged I have reviewed the history and physical and performed a pertinent physical examination on my patient. No changes have occurred unless specified. Time Spent With Patient Time: Total time managing care of this patient today ____ minutes.
--- NOTE | 2023-07-19 09:24 | HO.PNOPHT ---
Ophthalmology Procedure Procedure Date of Service: 07/19/23 Ophthalmology Viscoelastic: Healrasta Duet Dual Pack Pro Ophthalmology Lenses: TECNIS [id number] (19.5) Procedure Notes: PREOPERATIVE DIAGNOSIS: Decreased visual acuity left eye secondary to cataract POSTOPERATIVE DIAGNOSIS: Same PROCEDURE: Left cataract extraction with intraocular lens insertion SURGEON: Altaf Moses M.D. ANESTHESIA: Topical/MAC ESTIMATED BLOOD LOSS: None COMPLICATIONS: None After obtaining informed consent, the patient was brought to the operation room suite and placed in the supine position. After adequate sedation per anesthesia, topical drops of Tetracaine were given to the left eye. The eye was then prepped and draped in the usual sterile fashion. The operating room microscope was then positioned over the operative eye and a lid speculum placed. A paracentesis was created. Viscoelastic was then instilled into the anterior chamber. A three plane incision was then created temporally, utilizing a 2.85 mm keratome. Capsulotomy forceps were then utilized to create a circular tear capsulotomy. Hydrodissection and hydrodelineation were carried out until adequate mobilization of the nucleus occurred. Phacoemulsification was then utilized to remove the dense central nucleus followed by removal of the cortical material utilizing the automated aspiration irrigation unit. Viscoat elastic was instilled into the posterior capsular bag followed by placement of a posterior chamber intraocular lens without difficulty. The residual Viscoat elastic was then removed utilizing the automated IA machine. The wound was check and found to be watertight. The patient tolerated the procedure well and the lid speculum was removed. Intracameral injection of Vigamox 0.1 mL followed by a subtenon injection of Kenalog-40 0.2 mL were administered. The patient will be seen in the a.m.
[2023-07-19 09:48] VITALS: BP 123/76; PULSE 86; RESP 18; TEMP 36.8; O2SAT 98
[2023-07-19 09:53] VITALS: BP 122/76; PULSE 86; RESP 18; TEMP 36.3; O2SAT 98
== END 2023-07-19 10:04 | disposition home or self-care (01) ==
PROVIDERS: PCP Nurse Practitioner Family; Visit Provider Ophthalmology
PROC: (CPT 66985; principal; 2023-07-19 08:50)
DX: H25.12 Age-related nuclear cataract, left eye (principal); H54.7 Unspecified visual loss; H40.003 Preglaucoma, unspecified, bilateral; E78.00 Pure hypercholesterolemia, unspecified; E11.9 Type 2 diabetes mellitus without complications; M79.7 Fibromyalgia; M88.9 Osteitis deformans of unspecified bone; M05.79 Rheumatoid arthritis with rheumatoid factor of multiple sites without organ or systems involvement; J45.30 Mild persistent asthma, uncomplicated; Z79.84 Long term (current) use of oral hypoglycemic drugs; Z79.85 Long-term (current) use of injectable non-insulin antidiabetic drugs; Z79.899 Other long term (current) drug therapy; Z88.8 Allergy status to other drugs, medicaments and biological substances
CPT/HCPCS: 66984; 82947; J2250; J3010; J3301; V2632

== ENCOUNTER 2023-10-19 08:56 | Outpatient (REF) | payer MEDICARE, OTHER, SELFPAY ==
--- NOTE | ~2023-10-19 | MM_ITS ---
EXAMINATION: BONE DENSITOMETRY CLINICAL INDICATION: Osteopenia of left hip. COMPARISON: Previous BD dated 10/17/2021 and baseline BD dated 12/02/2018. TECHNIQUE: Using a iCAD DXA System (software version: 13.1) manufactured by [employer], dual-energy x-ray absorptiometry was performed of the lumbar spine and left hip. The images are of good technical quality. Summary results are attached. FINDINGS: LEFT FEMUR, NECK: Current: BMD 0.862 g/cm2, Z-score 0.0, T-score -1.3, osteopenia. Prior: BMD 0.872 g/cm2. Baseline: BMD 0.857 g/cm2. LEFT FEMUR, TOTAL: Current: BMD 0.906 g/cm2, Z-score 0.2, T-score -0.8, normal, 7.9% decrease from previous, 9.0% decrease from baseline (<5% change is not significant). Prior: BMD 0.984 g/cm2. Baseline: BMD 0.996 g/cm2. AP SPINE L1-L4: Current: BMD 1.193 g/cm2, Z-score 1.4, T-score 0.1, normal, 0.9% decrease from previous, 3.4% decrease from baseline (<5% change is not significant). Prior: BMD 1.204 g/cm2. Baseline: BMD 1.235 g/cm2. IDENTIFIED RISK FACTORS: Early menopause, history of fracture (adult), bilateral oophorectomy, hysterectomy, rheumatoid arthritis, secondary osteoporosis. HISTORY OF FRACTURE: Other. MEDICATIONS: Calcium, vitamin D. MM/XR DEXA axial skeleton IMPRESSION: 1. DIAGNOSIS: Osteopenia based on the lowest T-score value of -1.3 in the femoral neck applying World Health Organization criteria. 2. 10-YEAR FRACTURE RISK PREDICTION, FRAX: Major osteoporotic fracture (clinical spine, forearm, hip or shoulder) 9.9%. Hip fracture 1.0%. 3. Treatment Recommendations: NOF guidelines recommend consideration for treatment in postmenopausal women and men age 50 and older presenting with the following: -A hip or vertebral (clinical or morphometric) fracture. -T-score less than or equal to -2.5 at the femoral neck or spine after appropriate evaluation to exclude secondary causes. -Low bone mass at the hip or spine and a 10-year fracture probability by FRAX of greater than or equal to 3% for hip fracture or greater than or equal to 20% for major osteoporotic fracture based on the [place] adapted WHO algorithm. 4. Other Recommendations: All treatment decisions require clinical judgment and consideration of individual patient factors, including patient preferences, comorbidities, previous drug use, risk factors not captured in the FRAX model (e.g. frailty, falls, vitamin D deficiency, increased bone turnover, interval significant decline in bone density) and possible under or overestimation of fracture risk by FRAX. Additional medical evaluation for secondary cause of low bone mineral density may be appropriate. FUTURE SCAN RECOMMENDATION: People with diagnosed cases of osteoporosis or at high risk for fracture should have regular bone mineral density tests. For patients eligible for Medicare, routine testing is allowed once every 2 years. The testing frequency can be increased to one year for patients who have rapidly progressing disease, those who are receiving or discontinuing medical therapy to restore bone mass, or have additional risk factors.
== END 2023-10-19 08:57 | disposition home or self-care (01) ==
LOC: HO.MAMMO 08:56
PROVIDERS: PCP Registered Nurse; Visit Provider Internal Medicine Rheumatology
DX: Z13.820 Encounter for screening for osteoporosis (principal); Z78.0 Asymptomatic menopausal state; M85.852 Other specified disorders of bone density and structure, left thigh
CPT/HCPCS: 77080

== ENCOUNTER 2024-05-15 07:22 | Outpatient (REF) | payer MEDICARE, OTHER, SELFPAY ==
--- NOTE | ~2024-05-15 | MM_ITS ---
EXAMINATION: MM SCREENING DIGITAL BREAST TOMOSYNTHESIS, BILATERAL CLINICAL INFORMATION: Screening. Asymptomatic. COMPARISON: Mammography: Comparison is made with available priors TECHNIQUE: Digital breast mammography with tomosynthesis is performed in both the craniocaudal and mediolateral oblique views along with computer-aided detection (CAD). FINDINGS: There are scattered areas of fibroglandular density (ACR BI-RADS breast composition Category b). Bilateral reduction mammoplasty. There are no significant masses, abnormal calcifications, or other abnormalities. MM/MM tomosynthesis screening BI IMPRESSION: No mammographic evidence of malignancy. ASSESSMENT: BI-RADS BI-RADS 2 - Benign Findings RECOMMENDATION: Routine annual mammography screening. 1 year F/U This examination should not preclude the clinical evaluation of a suspicious palpable abnormality. This patient's information was entered into a reminder system with a target due date for their next mammogram. Electronically signed by: Charu Alexander DO 05/23/2024 11:11 AM RHONA
== END 2024-05-15 07:23 | disposition home or self-care (01) ==
LOC: HO.MAMMO 07:22
PROVIDERS: PCP Registered Nurse; Visit Provider Registered Nurse
DX: Z12.31 Encounter for screening mammogram for malignant neoplasm of breast (principal)
CPT/HCPCS: 77063; 77067

== ENCOUNTER → 2024-05-15 07:30 | Outpatient (BNV) | payer MEDICARE, OTHER, SELFPAY | PROVIDERS: PCP Registered Nurse; Visit Provider Internal Medicine | DX: Z12.31 Encounter for screening mammogram for malignant neoplasm of breast (principal) | CPT/HCPCS: 77063; 77067 ==

== ENCOUNTER 2025-01-29 14:52 | Outpatient (REF) | payer MEDICARE, OTHER, SELFPAY ==
[2025-01-29 17:30] LABS: Lipase 31 U/L (8-78)
[2025-01-30 14:19] LABS: Transglutaminase Ab IgG <1.0 U/mL
== END 2025-01-29 14:53 | disposition home or self-care (01) ==
LOC: HO.LAB 14:52
PROVIDERS: PCP Registered Nurse; Visit Provider Nurse Practitioner Family
DX: A04.8 Other specified bacterial intestinal infections (principal); K21.9 Gastro-esophageal reflux disease without esophagitis; K59.09 Other constipation; D12.6 Benign neoplasm of colon, unspecified; R68.81 Early satiety; R10.13 Epigastric pain; Z01.84 Encounter for antibody response examination
CPT/HCPCS: 36415; 83013; 83690; 86364; 99202

== ENCOUNTER 2025-01-29 14:52 | Outpatient (AMB) | payer MEDICARE, OTHER, SELFPAY ==
--- NOTE | 2025-01-29 14:55 | A.OFFVIS_ITS ---
Vital Signs 01/29/25 15:01 Height 5 ft 1 in Weight 158 lb BMI 29.9 BP 142/74 H Blood Pressure Location Rt brachial Position Sitting Pulse 84 Pulse Source Pulse Oximeter Pulse Oximetry (%) 99 Oxygen Delivery Method Room Air Intake Visit Reasons: LLQ Pain. [facility] 2020. Intake Note: NEW PATIENT for recall screening per chronic constipation. Last 2020 w/ Dr. Goins. Chief Complaint; C.O. post prandial epigastric pain. Pt denies any additional sx or concerns at this time. Pt no longer taking PPI and does not experience reflux anymore. Automatic Stacker Required: No Accompanied by: Self / Same As Patient Allergies metformin (METFORMIN) Allergy (Severe, Verified 01/29/25 14:55) DIARRHEA/STOMACH PAIN HPI HPI LLQ Pain. [facility] 2020.: Details: COLONOSCOPY 03/10/2021 Upper endoscopy Findings: Larynx: Normal Esophagus: Tortuous esophagus with increased tertiary contractions without stricture or ring - biopsies were obtained from proximal esophagus to check for EOE.??GE junction at 35 cms. No esophagitis or Sorensen's. Stomach:?Mild gastric erythema. Biopsies were obtained. Grade 2 flap valve on retroflexed examination of the cardia. Duodenum:?Normal bulb and descending duodenum. Intervention:?Biopsies as noted above Colonoscopy Findings: Terminal Ileum: Not evaluated Cecum:? Normal Ascending Colon:??Normal Transverse Colon:??Two 8-10 mm sessile polyps removed with a cold snare. Descending Colon:? Normal Sigmoid Colon:??Moderate diverticulosis Rectum:??Normal Ano-rectum:??Normal Colon preparation:? Good after copious irrigation Impression and Post Procedure Diagnosis: Endoscopy Findings: ESOPHAGUS: Tortuous esophagus with increased tertiary contractions without stricture or ring - biopsies were obtained from proximal esophagus to check for EOE. STOMACH: Gastritis Colonoscopy Findings: Two medium sized polyps removed Moderate diverticulosis seen in the sigmoid colon Plan: Await pathology results Repeat Colonoscopy interval based on path results - in 3 years if polyps are adenomatous and 10 years if polyps are hyperplastic. PATHOLOGY RESULTS Diagnosis A. Stomach, antrum, biopsy: Antral- type mucosa with moderate chronic inactive inflammation; no Helicobacter organisms seen. B. Esophagus, proximal, biopsy: Squamous epithelium within normal limits; no inflammation seen; negative for eosinophilic esophagitis. C. Colon, transverse, polypectomies: Fragments of tubular adenomas; no high- grade dysplasia or carcinoma seen TODAY'S VISIT Patient is here today as she is due to go for colonoscopy. Patient had colonoscopy back in February of 2021 and was recommended to repeat colonoscopy in 3 years. Patient previously seen by Irma Doherty NP and Vera PARDO. patient reports that she is no longer is taking omeprazole. Her symptoms of acid reflux are suppressed, however patient reports epigastric pain and pain across top of her abdomen. Patient reports that this pain is going on no matter what she eats. Patient also reports postprandial abdominal bloating. Patient states that she is moving her bowels better now. Currently she is not taking anything to help her with bowel movements. Patient is on semaglutide. Patient denies any nausea or vomiting. Reports occasional dyspepsia without dysphagia or odynophagia. Denies melena, hematochezia, unintentional weight loss or ribbon like stools. PFSH Medical History Dental bridge present HTN (hypertension) Hx of renal calculi Rheumatoid arthritis Depression Anxiety Elevated cholesterol GERD (gastroesophageal reflux disease) Chronic constipation Diabetes Surgical History H/O colonoscopy Hx of cystoscopy Hx of lithotripsy Family History Mother Diabetes Father Diabetes Prostate cancer Sister Diabetes Liver cancer Social History Household Members: None Are you a primary care technician to a significant other at home: No Do you presently have visiting nurse or other home services: No Alcohol intake: never Comment: aware of trip hazard Patient Tobacco Use Status: Never used Tobacco Current occupational status: employed 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 Review of Systems Const Denies weight gain and Denies weight loss ENT Reports no additional complaints, Denies dysphagia and Denies odynophagia Card Reports no additional complaints Resp Reports no additional complaints GI Reports abdominal pain (Epigastric), Denies belching, Denies melena, Reports bloating, Denies change in bowel habits, Denies dysphagia, Denies excessive flatus, Denies dyspepsia, Denies heartburn, Denies diarrhea, Denies loose stools, Denies nausea, Denies odynophagia and Denies vomiting Musc Reports no additional complaints Neuro Reports no additional complaints Psych Reports no additional complaints Endo Reports no additional complaints Physical Exam Vital Signs: Last Vital Signs Pulse 84 01/29/25 15:01 BP 142/74 H 01/29/25 15:01 Pulse Ox 99 01/29/25 15:01 Oxygen Delivery Method Room Air 01/29/25 15:01 BMI result Body Mass Index 29.9 Const General: healthy appearing, no acute distress and well developed Nutritional Appearance: well nourished and obese Orientation/consciousness: patient oriented x3 Resp Effort & Inspection: normal respiratory effort, able to speak in complete sentences, no tracheal deviation and symmetric chest movement Auscultation: clear to auscultation bilaterally Cardio Rate: regular rate GI Inspection: Yes normal to inspection and No distended Palpation (GI): Soft to palpation, not firm, nontender and No hepatosplenomegaly present Auscultation: normal bowel sounds General: Yes no CVA tenderness Back/Spine/Pelvis Back: no CVA tenderness Skin General skin exam: elasticity normal, turgor normal and dry skin Neuro General: patient oriented x3 Psych Appearance: grossly normal Mental Status: mental status grossly normal Assessment & Plan Assessment & Plan (1) H. pylori infection: Code(s): A04.8 - Other specified bacterial intestinal infections Category: Medical (2) GERD (gastroesophageal reflux disease): Code(s): K21.9 - Gastro-esophageal reflux disease without esophagitis Category: Medical Qualifiers: Esophagitis presence: esophagitis presence not specified Qualified Code(s): K21.9 - Gastro-esophageal reflux disease without esophagitis (3) Chronic constipation: Code(s): K59.09 - Other constipation Category: Medical (4) Tubular adenoma of colon: Code(s): D12.6 - Benign neoplasm of colon, unspecified Category: Medical (5) Screen for colon cancer: Code(s): Z12.11 - Encounter for screening for malignant neoplasm of colon Plan Patient will be sent for upper endoscopy and colonoscopy. Will check H pylori breath test. Patient has not been on PPI for quite some time. Will check lipase to rule out chronic pancreatitis, transglutaminase. Patient will be sent for gastric emptying study. States that she is having epigastric pain and fullness no matter what she eats. Patient is on semaglutide. Might need to change it to Mounjaro. What to expect before during and after procedure discussed with patient. Stressed the importance of good bowel prep and clear liquid diet day before the procedure. Patient will call us if she will have and GI concerning symptoms. Message sent to Surgical schedules to book procedure for patient. Patient is agreeable to current plan of care and verbalizes understanding of instructions. She was given the opportunity to ask questions and all questions answered. Thank you for allowing me to participate in her care Orders: Orders Lipase 01/29/25 R10.9 - Unspecified abdominal pain H Pylori Breath Test 01/30/25 K21.9 - Gastro-esophageal reflux disease without esophagitis Transglutaminase IgA 01/29/25 R10.9 - Unspecified abdominal pain Transglutaminase Ab IgG 01/29/25 R10.9 - Unspecified abdominal pain NM gastric emptying study 01/29/25 R68.81 - Early satiety Coding Level of Care Code New Pt Level 4 (27184) Complex EM visit Add On G2211 Diagnoses H. pylori infection A04.8 Gastroesophageal reflux disease, unspecified whether esophagitis present K21.9 Esophagitis presence: esophagitis presence not specified Chronic constipation K59.09 Tubular adenoma of colon D12.6 Screen for colon cancer Z12.11 Time Spent (min) 50 Comment 35 minutes spent with patient and additional 15 minutes spent reviewing her records
--- OUTSIDE RECORDS SUMMARY | 2025-01-29 14:55 | XMS_ITS | Encounter Summary ---
Author Organization [facility] Address [address] [place] [address] Phone Care Team Providers Care Medicaid Specialist Name Role Phone Freddy Oquendo MD Unavailable Anu Millan NP Unavailable [phone] Altaf Moses MD Unavailable Nakita Bella MD Primary Care Provider Encounter Details Date Type Department Care Team (Late st Contact Info) Description 10/18/2024 Telephone [employer]ing [employer] [facility] [address] [place] [address] Nakita Bella MD [address] [facility] [address] [place] [address] [email or web address] Social History Tobacco Use Types Packs/Day Years Used Date Smoking Tobacco: Never Passive Smoke Exposure: Never Smokeless Tobacco: Never Alcohol Use Standard Drinks/Week Comments Not Currently 0 (1 standard drink = 0.6 oz pur e alcohol) Child or Family Care Answer Date Record ed Do you have problems with on e of the following making it difficult for you to work, study, or receive health care? No 08/04/2023 Education Answer Date Recorded Are you interested in help w ith more adult education (for example, completing high school, GED, job training, learning the [place] language, technical skills, or developing parenting skills)? No 08/04/2023 Are you concerned about learning? Not on file 08/04/2023 No 08/04/2023 Yes 08/04/2023 Food Answer Date Recorded Within the past 6 months we worried whether our food would run out before we got money to buy more. Never True 08/04/2023 Within the past 6 months the food we bought just didn't last and we didn't have enough money to get more. Never True Residential Stability Answer Date Recor ded What is your housing situation today? I have [employer] 08/04/2023 How many times have you move d in the past 12 months? Zero (I did not move) 08/04/2023 Paying for Meds Answer Date Recorded Do you have trouble paying for medicines? Yes 08/04/2023 Paying Utility Bills Answer Date Record ed Do you have trouble paying your heating or elect ricity bill? No 08/04/2023 Transportation Answer Date Recorded Has the lack of transportati on kept you from medical appointments or from getting medications? No 08/04/2023 Unemployment Answer Date Recorded Are you currently unemployed or working on a part-time or temporary basis, and looking for work? No 04/16/2021 Digital Access Answer Date Recorded No 08/04/2023 Yes 08/04/2023 Do you have reliable internet access at home? Ye s 08/04/2023 Do you have a device (e.g., phone, tablet, computer) with a working camera? Yes 08/04/2023 Intimate Partner Violence Answer Date R ecorded Denied Basic Needs Not on file 08/04/2023 In the past 12 months have y ou been in a relationship with a person who hurts, threatens, or tries to control you? No 08/04/2023 Worried food would run out Not on file 08/04 In the past 12 months have y ou been in a relationship with a person who hurts, threatens, or tries to control you? No 08/04/2023 Comments Unknown Sex and Gender Information Value Date Recorded Sex Assigned at Female 08/04/2022 10:42 AM EST Legal Sex Female 9:50 PM EDT Gender Identity Female 08/04/2022 10:42 AM EST Sexual Orientation Straight 08/04/2022 10 :42 AM EST documented as of this encounter Plan of Treatment Upcoming Encounters Date Type Department Care Team (Late st Contact Info) Description 03/02/2025 8:40 AM EDT Office Visit [facility] [address] [place] [address] Nakita Bella MD [address] [facility] [place] [address] 03/26/2025 8:00 AM EDT Office Visit [facility] [address] [place] [address] Madhuri Max MD [address], [address] [place] [address] 04/04/2025 8:30 AM EDT Office Visit [facility] [address] [place] [address] Lavelle Alicea DO [address] [place] [address] documented as of this encounter Visit Diagnoses Not on filedocumented in this encounter Additional Health Concerns Assessment Noted Time PHQ-9 Depression Total Score: 5 03/31/20 24 10:36 AM EDT PHQ-2 Depression Total Score: 2 03/31/20 24 10:36 AM EDT documented as of this encounter Care Teams Medicaid Specialist Relationship Specialty Start Date End Date Nakita Bella MD [address] [address] PCP - General Family Medicine 08/17/24 Freddy Oquendo MD [address] [place] [phone] Historical LMR Provider 04/13/17 Anu Millan NP [address] [place] [phone] [email or web address] Historical LMR Provider 04/13/17 Altaf Moses MD [address] [place] [address] [place] [address] Ophthalmology 12/16/21 documented as of this encounter Additional Source Comments The information contained in this document represents components of the legal health record. It is not the complete legal health record.[facility]
[2025-01-29 15:01] VITALS: BP 142/74; PULSE 84; O2SAT 99; BMI 29.9
== END 2025-01-29 16:24 | disposition home or self-care (01) ==
LOC: HO.HGI 14:53
PROVIDERS: PCP Registered Nurse; Visit Provider Nurse Practitioner Family
DX: A04.8 Other specified bacterial intestinal infections (principal); K21.9 Gastro-esophageal reflux disease without esophagitis; K59.09 Other constipation; D12.6 Benign neoplasm of colon, unspecified
CPT/HCPCS: 99204; G2211

== ENCOUNTER → 2025-03-20 08:16 | Outpatient (REF) | payer MEDICARE, OTHER, SELFPAY ==
--- OUTSIDE RECORDS SUMMARY | 2025-03-20 09:09 | XMS_ITS | Encounter Summary ---
Author Organization [facility] Address [address] [place] [address] [place] [phone] Phone Care Team Providers Care Compressed Air Pile Driver Operator Name Role Phone Freddy Oquendo MD Unavailable Anu Millan NP Unavailable [phone] Altaf Moses MD Unavailable Nakita Bella MD Primary Care Provider [phone] Encounter Details Date Type Department Care Team (Late st Contact Info) Description 10/30/2024 Procedure Pass [facility], [address] [address] Social History Tobacco Use Types Packs/Day Years [...] high school, GED, job training, learning the [place] language, technical skills, or developing parenting skills)? [...] Care Team (Late st Contact Info) Description 03/26/2025 8:00 AM EDT Office Visit [facility] Rheumatology [address] [place] [address] Madhuri Max MD [address] [facility], [address] [place] [address] 04/04/2025 8:30 AM EDT Office Visit [facility]ocrinology [address] [place] [address] Lavelle Alicea DO [address] [place] [address] 09/04/2025 10:00 AM EDT Office Visit [facility] [place] [facility] [address] [facility] [address] [place] [address] Nakita Bella MD [address] [facility] [address] [place] [address] documented as of this encounter Visit Diagnoses Not on filedocumented in this encounter Additional Health Concerns Assessment Noted Time PHQ-9 Depression Total Score: 5 03/31/20 24 10:36 AM EDT PHQ-2 Depression Total Score: 2 03/31/20 24 10:36 AM EDT documented as of this encounter Care Teams Compressed Air Pile Driver Operator Relationship Specialty Start Date End Date Nakita Bella MD [address] [address] PCP - General Family Medicine 08/17/24 Freddy Oquendo MD [address] [place] [address] Historical LMR Provider 04/13/17 Anu Millan NP [address] [place] [phone] [email or web address] Historical LMR Provider 04/13/17 Altaf Moses MD [address] [place] [address] [place] [address] Ophthalmology 12/16/21 documented as of this encounter Additional Source Comments The information contained in this document represents components of the legal health record. It is not the complete legal health record.[facility]
--- OUTSIDE RECORDS SUMMARY | 2025-03-20 09:09 | XMS_ITS | Encounter Summary ---
Author Organization [facility] Address [address] [facility] [address] [place] [address] Phone Care Team Providers Care Administrative Intern Name Role Phone Freddy Oquendo MD Unavailable Anu Millan NP Unavailable [phone] Altaf Moses MD Unavailable Naktia Bella MD Primary Care Provider Encounter Details Date Type Department Care Team (Late st Contact Info) Description 10/18/2024 Telephone [facility] [address] [place] [address] Nakita Bella MD [address] [facility] [address] [place] [address] [email or web address] Social History Tobacco Use Types [...] high school, GED, job training, learning the Swedish language, technical skills, or developing parenting skills)? [...] Description 03/26/2025 8:00 AM EDT Office Visit [facility] Rheumatology [address] [place] [address] Madhuri Max MD [address] [facility], [address] [place] [address] 04/04/2025 8:30 AM EDT Office Visit [facility]in[facility] [address] [place] [address] Lavelle Alicea DO [address] [place] [address] 09/04/2025 10:00 AM EDT Office Visit [facility] [place] [facility] [address] [facility] [address] [place] [address] Nakita Bella MD [address] [facility] [address] [place] [address] documented as of this encounter Visit Diagnoses Not on filedocumented in this encounter Additional Health Concerns Assessment Noted Time PHQ-9 Depression Total Score: 5 03/31/20 24 10:36 AM EDT PHQ-2 Depression Total Score: 2 03/31/20 24 10:36 AM EDT documented as of this encounter Care Teams Administrative Intern Relationship Specialty Start Date End Date Nakita Bella MD [address] [facility] [address] [place] [address] PCP - General Family Medicine 08/17/24 Freddy Oquendo MD [address] [place] [address] Historical LMR Provider 04/13/17 Anu Millan NP [address] [place] [address] [email or web address] Historical LMR Provider 04/13/17 Altaf Moses MD [address] [place] [address] [place] [address] Ophthalmology 12/16/21 documented as of this encounter Additional Source Comments The information contained in this document represents components of the legal health record. It is not the complete legal health record.[facility]
--- OUTSIDE RECORDS SUMMARY | 2025-03-20 09:10 | XMS_ITS | Clinical Summary ---
Author Organization [facility] Address [address] [place] [id number] Phone Care Team Providers Care Voice Over Artist Name Role Phone Freddy Oquendo MD Unavailable [phone] Anu Millan NP Unavailable [phone] Altaf Moses MD Unavailable Nakita Bella MD Primary Care Provider Allergies Active Allergy Reactions Criticality Noted Date Comments Metformin Diarrhea 07/14/2019 Medications calcium carbonate (OS-SHANEL) 1,500 mg (600 mg elemental) tablet Take 600 mg by mouth daily. Active multivitamin per tablet 1 tablet daily. Acti ve bacillus coagulans-inulin 1 billion-250 cell-mg Cap Take by mouth daily. Active omeprazole (PRILOSEC) 20 MG capsule Take 20 mg by mouth daily. 01/30/20 21 Active fexofenadine (TOSHIA) 60 MG tablet Take 60 mg by mouth daily as needed. Active FREESTYLE LITE METER meter kitIndications:Type 2 diabetes mellitus with right eye affected by mild nonproliferative retinopathy without macular edema, without long-term current use of insulin Use as instructed 1 kit 09/28/19 24 Active atorvastatin (LIPITOR) 40 MG tabletIndications:M ixed hyperlipidemia Take 1 tablet (40 mg total) by mouth daily. 90 tablet 3 02/18/20 24 Active lisinopril (PRINIVIL,ZESTRIL) 5 MG tabletIndications:E ssential hypertension Take 1 tablet (5 mg total) by mouth daily. 90 tablet 3 02/18/20 24 Active FREESTYLE LITE Strp stripsIndications:T ype 2 diabetes mellitus with right eye affected by mild nonproliferative retinopathy without macular edema, without long-term current use of insulin 1 each by Miscellaneous route every morning. 100 strip 3 03/28/20 24 Active DULoxetine (CYMBALTA) 60 MG capsuleIndications: Anxiety,Depression Take 1 capsule (60 mg total) by mouth daily. 90 capsule 3 05/09/20 24 Active albuterol 90 mcg/actuation inhalerIndications: Mild persistent asthma without complication INHALE 2 PUFFS INTO THE LUNGS EVERY 6 HOURS NEEDED FOR WHEEZE 8.5 g 3 06/26/20 24 Active semaglutide (RYBELSUS) 14 mg tabletIndications:T ype 2 diabetes mellitus with right eye affected by mild nonproliferative retinopathy without macular edema, without long-term current use of insulin Take 1 tablet (14 mg total) by mouth daily. 30 tablet 5 09/30/19 25 Active buPROPion (WELLBUTRIN XL) 300 MG ER 24 hr tablet TAKE 1 TABLET (300 MG TOTAL) BY MOUTH EVERY MORNING. 90 tablet 3 10/31/19 25 Active leflunomide (ARAVA) 20 MG tabletIndications:R heumatoid arthritis involving multiple sites with positive rheumatoid factor Take 1 tablet (20 mg total) by mouth daily. 90 tablet 1 11/04/19 25 Active 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 (RINVOQ) 15 mg ER 24 hr tabletIndications:R heumatoid arthritis involving multiple sites with positive rheumatoid factor Take 1 tablet (15 mg total) by mouth daily. 90 tablet 1 11/04/19 25 Active budesonide-formoter ol 80-4.5 mcg/actuation inhaler INHALE 2 PUFFS INTO LUNGS TWICE A DAY NEEDED FOR SHORTNESS OF BREATH. RINSE MOUTH AFTER EACH USE 10.2 g 5 11/17/19 25 Active magnesium oxide (MAG-OX) 400 mg (241.3 mg elemental) tablet TAKE 1 TABLET (400 MG TOTAL) BY MOUTH NIGHTLY AT BEDTIME. 90 tablet 3 12/06/19 25 Active DULoxetine (CYMBALTA) 20 MG capsuleIndications: Fibromyalgia TAKE 1 CAPSULE BY MOUTH NIGHTLY TOGETHER WITH 60 MG CAPSULE 90 capsule 1 12/29/19 25 Active FREESTYLE SKY 2 SENSOR kitIndications:Type 2 diabetes mellitus with right eye affected by mild nonproliferative retinopathy without macular edema, without long-term current use of insulin APPLY 1 SENSOR EVERY 14 (FOURTEEN) DAYS. USE TO CHECK GLUCOSE CONTINUOUSLY THROUGHOUT THE DAY 6 kit 3 01/30/20 25 Active ARIPiprazole (ABILIFY) 5 MG tablet TAKE 1 TABLET (5 MG TOTAL) BY MOUTH DAILY. 90 tablet 3 02/06/20 25 Active LORazepam (ATIVAN) 0.5 MG tablet Take 1 tablet (0.5 mg total) by mouth daily as needed for anxiety. 20 tablet 02/15/20 25 Active lancets 28 gauge MiscIndications:Typ e 2 diabetes mellitus with right eye affected by mild nonproliferative retinopathy without macular edema, without long-term current use of insulin 1 each by Miscellaneous route every morning. 100 each 3 03/28/20 24 2024 Disconti nued(No longer taking) Active Problems Problem Noted Date Diagnosed Date Abnormal abdominal MRI 03/02/2025 Assessment & Plan (03/02/2025 3:42 PM EDT): MRI results indicate a hepatic cyst, which is benign and does not require intervention at this time. The gallbladder appears normal. The pancreatic duct is slightly dilated, suggesting a possible intraductal papillary mucinous neoplasm (IPMN). This condition is not life-threatening but requires monitoring to ensure it does not enlarge and interfere with pancreatic function. - Follow-up MRI recommended in one year to monitor the IPMN. - Surgical intervention may be necessary if the IPMN enlarges significantly. alf current use of 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 07/07/2024 Assessment & Plan (11/03/2024 7:59 AM EDT): Hold Rinvoq whenever feeling sick, running fever or taking antibiotics. Complete entire antibiotic course and wait at least 48 hours after the last dose of antibiotic to make sure that infection does not recur before restarting Rinvoq. Monitor for unusual abdominal pain, nausea, diarrhea, melena or hematochezia. Return for monitoring labs at least every 3 months-standing orders in [facility]. Make sure to inform any new MD, PA, [employer] about chronic immunosuppression with Rinvoq and Arava, particularly in emergency situation. Assessment & Plan (07/07/2024 8:35 AM EST): Hold Rinvoq whenever feeling sick, running fever or taking antibiotics. Complete entire antibiotic course and wait at least 48 hours after the last dose of antibiotic to make sure that infection does not recur before restarting Rinvoq. Monitor for unusual abdominal pain, nausea, diarrhea, melena or hematochezia. Return for monitoring labs at least every 3 months-standing orders in [facility]. Make sure to inform any new MD, PA, [employer] about chronic immunosuppression with Rinvoq and Arava, particularly in emergency situation. Type 2 diabetes mellitus wit h right eye affected by mild nonproliferative retinopathy without macular edema, without long-term current use of insulin 09/28/2023 Assessment & Plan (03/02/2025 3:42 PM EDT): table. Recent A1c of 6.2. Reports fasting blood glucose level of 133 mg/dL this morning. - Eye exam scheduled for 03/2025 at [facility]. Will request a copy Assessment & Plan (11/03/2024 8:00 AM EDT): Continue close follow-up with her diabetic management team exactly as prescribed. Assessment & Plan (09/29/2024 8:45 AM EDT): Well-controlled based CGM. Last hemoglobin A1c in good range. She did obtain hemoglobin A1c today but I do not have the result. Will continue Rybelsus and have her return for follow-up in 6 months. She should repeat hemoglobin A1c in 6 months time. Assessment & Plan (07/26/2024 4:22 PM EST): Assessment & Plan (07/07/2024 9:07 AM EST): Continue close follow-up with her diabetic management team exactly as prescribed. Assessment & Plan (03/28/2024 10:49 AM EDT): Controlled. Hemoglobin A1c 6.6% we will continue Rybelsus. Assessment & Plan (12/28/2023 10:53 AM EDT): Controlled. Hemoglobin A1c 5.8% but she wants the injectable version of Rybelsus which is Ozempic. I prescribed 0.5 mg advised her to start with 0.25 for 4 weeks then move up to 0.5 if she tolerates the lower dose. I did not discontinue the Rybelsus but I told her that she must not use Rybelsus if she is using Ozempic. The reason why having discontinued the Rybelsus is because it is unclear that she is going to be able to get this medication. She will follow in 3 months time I did not give her any refills on the medication because if she does get the prescription then I would like to increase it to 1 mg if indicated. Assessment & Plan (12/25/2023 5:42 PM EDT): Continue close follow-up with her diabetic management team exactly as prescribed. Assessment & Plan (09/28/2023 11:21 AM EDT): Based on hemoglobin A1c of 5.6% she appears to be controlled. However the hemoglobin A1c is too low at 5.6%. She has had hypoglycemia in the past but recently she has not had any. She appears to may have developed diabetic retinopathy in the right eye. If the hemoglobin A1c drops too low this is associated with diabetic retinopathy so I will suggest to stop the glipizide because she does not need it. We should not keep the hemoglobin A1c too low. She should continue Rybelsus. I will request urine microalbumin creatinine ratio because it does not appear to have been done. She should repeat a hemoglobin A1c prior to the follow-up visit in 3 months. Hyperlipidemia LDL goal <100 09/28/2023 Assessment & Plan (09/29/2024 8:45 AM EDT): Controlled based on last LDL of 98 mg/dL she should continue atorvastatin 40 mg. She did have lipid panel done this morning but I do not have the results yet. Assessment & Plan (03/28/2024 10:48 AM EDT): Controlled based on LDL of 98 mg/dL but she had elevated triglycerides. She should continue atorvastatin. Will repeat lipid panel for the follow-up visit. Assessment & Plan (12/28/2023 10:53 AM EDT): Controlled. LDL 98 mg/dL on atorvastatin 40 mg no changes required. Assessment & Plan (09/28/2023 11:22 AM EDT): Controlled. LDL 98 mg/dL she should continue atorvastatin 40 mg no changes required. Age-related cataract of both eyes 06/25/2023 Long-term use of immunosuppressant medication Assessment & Plan (07/26/2024 4:22 PM EST): Assessment & Plan (12/22/2023 10:10 AM EDT): Hold Rinvoq whenever feeling sick, running fever or taking antibiotics. Complete entire antibiotic course and wait at least 48 hours after the last dose of antibiotic to make sure that infection does not recur before restarting Rinvoq. Monitor for unusual abdominal pain, nausea, diarrhea, melena or hematochezia. Return for monitoring labs at least every 3 months-standing orders in [facility]. Make sure to inform any new MD PA, [employer] about chronic immunosuppression with Rinvoq and Arava, particularly in emergency situation. Assessment & Plan (09/01/2023 8:30 AM EST): Hold Rinvoq whenever feeling sick, running fever or taking antibiotics. Complete entire antibiotic course and wait at least 48 hours after the last dose of antibiotic to make sure that infection does not recur before restarting Rinvoq. Monitor for unusual abdominal pain, nausea, diarrhea, melena or hematochezia. Return for monitoring labs at least every 3 months-standing orders in [facility]. Make sure to inform any new , PA, [employer] about chronic immunosuppression with Rinvoq and Arava, particularly in emergency situation. Assessment & Plan (05/03/2023 8:02 AM EST): Hold Rinvoq whenever feeling sick, running fever or taking antibiotics. Complete entire antibiotic course and wait at least 48 hours after the last dose of antibiotic to make sure that infection does not recur before restarting Rinvoq. Monitor for unusual abdominal pain, nausea, diarrhea, melena or hematochezia. Return for monitoring labs at least every 3 months-standing orders in [facility]. Make sure to inform any new EDVIN RODRIGUEZ, [employer] about chronic immunosuppression with Rinvoq and Arava, particularly in emergency situation. Assessment & Plan (01/03/2023 3:42 PM EDT): Hold Rinvoq whenever feeling sick, running fever or taking antibiotics. Complete entire antibiotic course and wait at least 48 hours after the last dose of antibiotic to make sure that infection does not recur before restarting Rinvoq. Monitor for unusual abdominal pain, nausea, diarrhea, melena or hematochezia. Return for monitoring labs at least every 3 months-standing orders in [facility]. Make sure to inform any new EDVIN RODRIGUEZ, [employer] about chronic immunosuppression with Rinvoq and Arava, particularly in emergency situation. Encounter for monitoring Arava therapy Assessment & Plan (11/03/2024 7:59 AM EDT): Take exactly as prescribed. Make sure to avoid alcohol while on Arava. Hold Arava whenever running fever, feeling sick or taking antibiotics. Monitor for unusual nausea, nominal pain, diarrhea, bruising, fatigue etc. Return for monitoring labs at least every 3 months-standing orders in [facility]. Assessment & Plan (07/07/2024 8:35 AM EST): Take exactly as prescribed. Make sure to avoid alcohol while on Arava. Hold Arava whenever running fever, feeling sick or taking antibiotics. Monitor for unusual nausea, nominal pain, diarrhea, bruising, fatigue etc. Return for monitoring labs at least every 3 months-standing orders in [facility]. Assessment & Plan (12/22/2023 10:10 AM EDT): Take exactly as prescribed. Make sure to avoid alcohol while on Arava. Hold Arava whenever running fever, feeling sick or taking antibiotics. Monitor for unusual nausea, nominal pain, diarrhea, bruising, fatigue etc. Return for monitoring labs at least every 3 months-standing orders in [facility]. Assessment & Plan (09/01/2023 8:30 AM EST): Take exactly as prescribed. Make sure to avoid alcohol while on Arava. Hold Arava whenever running fever, feeling sick or taking antibiotics. Monitor for unusual nausea, nominal pain, diarrhea, bruising, fatigue etc. Return for monitoring labs at least every 3 months-standing orders in [facility]. Assessment & Plan (05/03/2023 8:01 AM EST): Take exactly as prescribed. Make sure to avoid alcohol while on Arava. Hold Arava whenever running fever, feeling sick or taking antibiotics. Monitor for unusual nausea, nominal pain, diarrhea, bruising, fatigue etc. Return for monitoring labs at least every 3 months-standing orders in [facility]. Assessment & Plan (12/17/2022 9:36 AM EDT): Take exactly as prescribed. Make sure to avoid alcohol while on Arava. Hold Arava whenever running fever, feeling sick or taking antibiotics. Monitor for unusual nausea, nominal pain, diarrhea, bruising, fatigue etc. Return for monitoring labs at least every 3 months-standing orders in [facility]. Assessment & Plan (05/25/2022 4:24 PM EST): Take exactly as prescribed. Make sure to avoid alcohol while on Arava. Hold Arava whenever running fever, feeling sick or taking antibiotics. Monitor for unusual nausea, nominal pain, diarrhea, bruising, fatigue etc. Return for monitoring labs at least every 3 months-standing orders in [facility]. Assessment & Plan (02/12/2022 10:52 AM EDT): Take exactly as prescribed. Make sure to avoid alcohol while on Arava. Hold Arava whenever running fever, feeling sick or taking antibiotics. Monitor for unusual nausea, nominal pain, diarrhea, bruising, fatigue etc. Return for monitoring labs at least every 3 months-standing orders in [facility]. Assessment & Plan (12/02/2021 5:49 PM EDT): Take exactly as prescribed. Make sure to avoid alcohol while on Arava. Hold Arava whenever running fever, feeling sick or taking antibiotics. Monitor for unusual nausea, nominal pain, diarrhea, bruising, fatigue etc. Return for monitoring labs at least every 3 months-standing orders in [facility]. Carpal tunnel syndrome of right wrist 10/03/2021 Assessment & Plan (11/03/2024 7:59 AM EDT): Avoid prolonged repetitive use of hand and use splint for extended activities. Gentle, regular exercise routine. Ergonomic workstation alignment. Warm packs prior to gentle topical Arnica versus Voltaren gel versus Biofreeze etc. Consider formal hand therapy or local steroid injection if not better with above measures. Assessment & Plan (07/07/2024 9:07 AM EST): Avoid prolonged repetitive use of hand and use splint for extended activities. Gentle, regular exercise routine. Ergonomic workstation alignment. Warm packs prior to gentle topical Arnica versus Voltaren gel versus Biofreeze etc. Consider formal hand therapy or local steroid injection if not better with above measures. Assessment & Plan (11/13/2021 3:55 PM EDT): Avoid prolonged repetitive use of hand and use splint for extended activities. Gentle, regular exercise routine. Ergonomic workstation alignment. Warm packs prior to gentle topical Arnica versus Voltaren gel versus Biofreeze etc. Consider formal hand therapy or local steroid injection if not better with above measures. Assessment & Plan (10/13/2021 4:29 PM EDT): Avoid prolonged repetitive use of hand and use splint for extended activities. Gentle, regular exercise routine. Ergonomic workstation alignment. Warm packs prior to gentle topical Arnica versus Voltaren gel versus Biofreeze etc. Consider formal hand therapy or local steroid injection if not better with above measures. Bilateral carpal tunnel syndrome 07/08/2020 Assessment & Plan (10/15/2020 11:27 PM EDT): Avoid prolonged, repetitive hand use. Use splint for the night. Joint protection, energy conservation techniques. Make sure to have ergonomic alignment of workstation. Call if not better or worse to consider formal OT versus local steroid injection. Assessment & Plan (07/09/2020 5:26 PM EST): Avoid prolonged, repetitive hand use. Use splint for the night. Joint protection, energy conservation techniques. Make sure to have ergonomic alignment of workstation. Call if not better or worse to consider formal OT versus local steroid injection. Rotator cuff arthropathy of both shoulders 07/08 Assessment & Plan (07/09/2020 5:23 PM EST): Avoid repetitive pulling, pushing, lifting above the shoulder level. Use warm pack versus warm shower prior to gentle, regular ROM, stretching and muscle strengthening exercises. Examples of appropriate exercises with pictures and detailed instructions printed for home use. If not better may need to consider formal PT versus local steroid injection. Trochanteric bursitis of both hips 04/30/2020 Assessment & Plan (02/12/2022 11:05 AM EDT): Procedure: After an informed oral consent, under sterile conditions using Ethyl chloride spray for local anesthesia I have injected 40 mg DepoMedrol and 2 cc 1% Lidocaine into Right trochanteric bursa uneventfully. Details of post-procedure care were explained to the patient in the office and given in writing. Provider: Madhuri Max MD Patient: Lotus Damon : 1960 Date: 02/12/2022 Assessment & Plan (04/30/2020 11:52 AM EST): On patient's request I agreed to inject her left trochanteric bursa although both are painful. She understands that bilateral procedure in her case may be detrimental due to coexistent diabetes mellitus that may put her at risk for post injection hyperglycemia. Procedure: After an informed oral consent, under sterile conditions using Ethyl chloride spray for local anesthesia I have injected 40 mg DepoMedrol and 2 cc 1% Lidocaine into Left trochanteric bursa from uneventfully. Details of post-procedure care were explained to the patient in the office and given in writing. Other constipation 06/12/2019 Assessment & Plan (06/12/2019 10:06 AM EST): High fiber diet Rheumatoid arthritis involvi ng multiple sites with positive rheumatoid factor 02/03/2019 Assessment & Plan (11/03/2024 7:58 AM EDT): Clinically & lab melchor stable. Carefully continue current daily Rinvoq 15 mg along with Arava 20 mg daily Avoid falls, injuries, overuse and sick contacts. Joint protection, energy conservation techniques. Get labs monitoring safety and efficacy prior to next visit-standing orders in [facility]. Gentle, regular exercise after warm pack or warm shower as tolerated. Topical cream versus patch as needed. Call if problems/ questions. Due to reported ongoing difficulty every time she needs a refill for Rinvoq I provided her with pamphlets on Plaquenil (hydroxychloroquine), methotrexate and sulfasalazine that most likely would be distributed/delivered via local pharmacy for review and writing her questions for discussion. Assessment & Plan (07/26/2024 4:22 PM EST): Assessment & Plan (07/07/2024 8:34 AM EST): Clinically & lab melchor stable. Carefully continue current daily Rinvoq 15 mg along with Arava 20 mg daily Avoid falls, injuries, overuse and sick contacts. Joint protection, energy conservation techniques. Get labs monitoring safety and efficacy prior to next visit-standing orders in [facility]. Gentle, regular exercise after warm pack or warm shower as tolerated. Topical cream versus patch as needed. Call if problems/ questions. Due to reported ongoing difficulty every time she needs a refill for Rinvoq I provided her with pamphlets on Plaquenil (hydroxychloroquine), methotrexate and sulfasalazine that most likely would be distributed/delivered via local pharmacy for review and writing her questions for discussion. Assessment & Plan (12/25/2023 5:40 PM EDT): Clinically & lab melchor stable. Carefully continue current daily Rinvoq 15 mg along with Arava 20 mg daily Avoid falls, injuries, overuse and sick contacts. Joint protection, energy conservation techniques. Get labs monitoring safety and efficacy prior to next visit-standing orders in [facility]. Gentle, regular exercise after warm pack or warm shower as tolerated. Topical cream versus patch as needed. Call if problems/ questions. Due to reported ongoing difficulty every time she needs a refill for Rinvoq I provided her with pamphlets on Plaquenil (hydroxychloroquine), methotrexate and sulfasalazine that most likely would be distributed/delivered via local pharmacy for review and writing her questions for discussion. Assessment & Plan (09/01/2023 8:27 AM EST): Clinically & lab melchor stable. Carefully continue current daily Rinvoq 15 mg along with Arava 20 mg daily Avoid falls, injuries, overuse and sick contacts. Joint protection, energy conservation techniques. Get labs monitoring safety and efficacy prior to next visit-standing orders in [facility]. Gentle, regular exercise after warm pack or warm shower as tolerated. Topical cream versus patch as needed. Call if problems/ questions.. Assessment & Plan (2023 5:47 PM EST): Continue follow-up with rheumatology as scheduled Assessment & Plan (05/03/2023 8:01 AM EST): Carefully continue current daily Rinvoq 15 mg along with Arava 20 mg daily Avoid falls, injuries, overuse and sick contacts. Joint protection, energy conservation techniques. Get labs monitoring safety and efficacy prior to next visit-standing orders in [facility]. Gentle, regular exercise after warm pack or warm shower as tolerated. Topical cream versus patch as needed. Call if problems/ questions.. Assessment & Plan (12/17/2022 9:35 AM EDT): Carefully continue current daily Rinvoq 15 mg along with Arava 20 mg daily Avoid falls, injuries, overuse and sick contacts. Joint protection, energy conservation techniques. Get labs monitoring safety and efficacy prior to next visit-standing orders in [facility]. Gentle, regular exercise after warm pack or warm shower as tolerated. Topical cream versus patch as needed. Call if problems/ questions.. Assessment & Plan (06/23/2022 5:42 PM EST): Carefully continue current weekly subcutaneous Enbrel 50 mg along with Arava 20 mg daily and Aleve 400 mg 2-3 times daily with food as needed, hoping to reduce and if possible stop Aleve in the nearest future. Avoid falls, injuries, overuse and sick contacts. Joint protection, energy conservation techniques. Get labs monitoring safety and efficacy prior to next visit-standing orders in [facility]. Gentle, regular exercise after warm pack or warm shower as tolerated. Topical cream versus patch as needed. I previously provided her with pamphlets on alternative medications to Enbrel for informational purposes: Humira, Orencia, Actemra. She read the pamphlets and prefers to continue with Arava in combination with Enbrel before exploring any of them. She inquired about oral options for biologic modifying antirheumatic medications therefore I previously printed her information on Xeljanz (tofacitinib), Olumiant (baricitinib) & Rinvoq (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). She is interested in switching SC Orencia to oral Rinvoq. Call with questions or problems. Assessment & Plan (03/03/2022 10:08 AM EDT): Carefully continue current weekly subcutaneous Enbrel 50 mg along with Arava 20 mg daily and Aleve 400 mg 2-3 times daily with food as needed, hoping to reduce and if possible stop Aleve in the nearest future. Avoid falls, injuries, overuse and sick contacts. Joint protection, energy conservation techniques. She had lab work drawn earlier today but the results are pending. Get labs monitoring safety and efficacy prior to next visit. Gentle, regular exercise after warm pack or warm shower as tolerated. Topical cream versus patch as needed. I previously provided her with pamphlets on alternative medications to Enbrel for informational purposes: Humira, Orencia, Actemra. She read the pamphlets and prefers to continue with Arava in combination with Enbrel before exploring any of them. She inquired about oral options for biologic modifying antirheumatic medications therefore I printed her information on Xeljanz (tofacitinib), Olumiant (baricitinib) & Rinvoq (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)-see details in instruction section. Call with questions or problems. Assessment & Plan (11/13/2021 3:45 PM EDT): Carefully continue current weekly subcutaneous Enbrel 50 mg along with Aleve 400 mg 2-3 times daily with food Avoid falls, injuries, overuse and sick contacts. Joint protection, energy conservation techniques. She had lab work drawn earlier today but the results are pending. Get labs monitoring safety and efficacy prior to next visit. Gentle, regular exercise after warm pack or warm shower as tolerated. Topical cream versus patch as needed. She is interested in exploring alternative to methotrexate so I printed her pamphlet on Arava. I previously provided her with pamphlets on alternative medications to Enbrel for informational purposes: Dillon Wiley Actemra. She read the pamphlets and prefers to start with Arava in combination with Enbrel before exploring any of them. Call with questions or problems. Assessment & Plan (10/13/2021 4:32 PM EDT): Carefully continue current weekly subcutaneous Enbrel 50 mg along with Aleve 400 mg 2-3 times daily with food Avoid falls, injuries, overuse and sick contacts. Joint protection, energy conservation techniques. She had lab work drawn earlier today but the results are pending. Get labs monitoring safety and efficacy prior to next visit. Gentle, regular exercise after warm pack or warm shower as tolerated. Topical cream versus patch as needed. She is interested in exploring alternative to methotrexate so I printed her pamphlet on Arava. I previously provided her with pamphlets on alternative medications to Enbrel for informational purposes: Dillon Wiley Actemra. She read the pamphlets and prefers to start with Arava in combination with Enbrel before exploring any of them. Call with questions or problems. Assessment & Plan (05/11/2021 8:47 PM EST): Carefully continue current weekly subcutaneous Enbrel 50 mg along with Aleve 400 mg 2-3 times daily with food Avoid falls, injuries, overuse and sick contacts. Joint protection, energy conservation techniques. She had lab work drawn earlier today but the results are pending. Get labs monitoring safety and efficacy prior to next visit. Gentle, regular exercise after warm pack or warm shower as tolerated. Topical cream versus patch as needed. She is interested in exploring alternative to methotrexate so I printed her pamphlet on Arava. I provided her with pamphlets on alternative medications to Enbrel for informational purposes: Dillon Wiley Actemra. Call with questions or problems. Assessment & Plan (10/07/2020 2:55 PM EDT): Carefully continue current weekly subcutaneous Enbrel 50 mg along with Aleve 400 mg 2-3 times daily with food Avoid falls, injuries, overuse and sick contacts. Joint protection, energy conservation techniques. She had lab work drawn earlier today but the results are pending. Get labs monitoring safety and efficacy prior to next visit. Gentle, regular exercise after warm pack or warm shower as tolerated. Topical cream versus patch as needed. I provided her with pamphlets on alternative medications to Enbrel for informational purposes: Dillon Wiley Actemra. Call with questions or problems. Assessment & Plan (07/09/2020 5:32 PM EST): Carefully continue current weekly subcutaneous Enbrel 50 mg along with Aleve 400 mg 2-3 times daily with food Avoid falls, injuries, overuse and sick contacts. Joint protection, energy conservation techniques. She had lab work drawn earlier today but the results are pending. Get labs monitoring safety and efficacy prior to next visit. Gentle, regular exercise after warm pack or warm shower as tolerated. Topical cream versus patch as needed. I provided her with pamphlets on alternative medications to Enbrel for informational purposes: Dillon Wiley Actemra. Call with questions or problems. Assessment & Plan (04/30/2020 11:50 AM EST): Carefully continue current weekly subcutaneous Enbrel 50 mg along with Aleve 400 mg 2-3 times daily with food Avoid falls, injuries, overuse and sick contacts. Joint protection, energy conservation techniques. She had lab work drawn earlier today but the results are pending. Get labs monitoring safety and efficacy in 6 weeks. Gentle, regular exercise after warm pack or warm shower as tolerated. Topical cream versus patch as needed. Call with questions or problems. Assessment & Plan (02/20/2020 3:36 PM EDT): Carefully continue current methotrexate at 17.5 mg every week on Wednesday but switch oral to s.c route that avoids GI tract and therefore stomach upset and allows more even distribution therefore improved antirheumatic power.. Continue daily folic acid except for Wednesday. Get labs monitoring safety and efficacy today & in 8 weeks. Call with questions or problems. Get yearly influenza vaccine by March 2020. Assessment & Plan (11/06/2019 10:04 PM EDT): Carefully continue current methotrexate at 17.5 mg every week on Wednesday. Continue daily folic acid except for Wednesday. Get labs monitoring safety and efficacy in 8 weeks and return for reevaluation. Call with questions or problems. Assessment & Plan (08/17/2019 8:55 PM EST): Due to ongoing activity of her disease I am asking her to carefully increase methotrexate dose to 17.5 mg every week on Wednesday. Continue daily folic acid except for Wednesday. Get labs monitoring safety and efficacy in 8 weeks and return for reevaluation. Procedure: After an informed oral consent, under sterile conditions using Ethyl chloride spray for local anesthesia I have injected 40 mg DepoMedrol and 2 cc 1% Lidocaine into Right shoulder from posterior approach uneventfully. Details of post-procedure care were explained to the patient in the office and given in writing. Call with questions or problems. Assessment & Plan (06/12/2019 10:04 AM EST): She read pamphlets on methotrexate, Plaquenil and sulfasalazine. She agreed to start treatment with methotrexate. Due to ongoing activity of her disease I am asking her to carefully increase methotrexate dose to 15 mg every week on Wednesday. Continue daily folic acid except for Wednesday. Get labs monitoring safety and efficacy in 8 weeks and return for reevaluation. Call with questions or problems. Assessment & Plan (04/18/2019 4:57 PM EDT): She read pamphlets on methotrexate, Plaquenil and sulfasalazine. She agreed to start treatment with methotrexate. Due to ongoing activity of her disease I am asking her to carefully increase methotrexate dose to 12.5 mg every week on Wednesday. Continue daily folic acid except for Wednesday. Get labs monitoring safety and efficacy in 6 weeks and return for reevaluation. Call with questions or problems. Procedure: After an informed oral consent, under sterile conditions using Ethyl chloride spray for local anesthesia I have injected 20 mg DepoMedrol and 0.5 cc 1% Lidocaine into Left trapezial ridge uneventfully. Details of post-procedure care were explained to the patient in the office and given in writing. Assessment & Plan (02/25/2019 9:25 PM EDT): She read pamphlets on methotrexate, Plaquenil and sulfasalazine. She agrees to start treatment with methotrexate. I reviewed with her that prior to doing so she should be up-to-date on pneumonia vaccine and get the Shingrix vaccine. Once she is 14 days after the Shingrix vaccine she may start methotrexate weekly 7.5 mg= 3 tablets 2.5 mg each. She can take folic acid daily except for the day of weekly methotrexate and get the lab work after her fourth weekly dose of methotrexate. Get yearly influenza vaccination by mid March 2019. Call with questions or problems. Osteopenia of left hip 02/03/2019 Assessment & Plan (11/03/2024 7:59 AM EDT): Continue proper calcium and vitamin D supplementation. Fall and fracture prevention strategies and daily weightbearing exercises. Interval bone density from 10/19/2023 at [facility] returned reassuring that she does not require bone preserving therapy at this time. Assessment & Plan (07/07/2024 8:34 AM EST): Continue proper calcium and vitamin D supplementation. Fall and fracture prevention strategies and daily weightbearing exercises. Interval bone density from 10/19/2023 at [facility] returned reassuring that she does not require bone preserving therapy at this time. Assessment & Plan (12/25/2023 5:43 PM EDT): Continue proper calcium and vitamin D supplementation. Fall and fracture prevention strategies and daily weightbearing exercises. Interval bone density from 10/19/2023 at [facility] returned reassuring that she does not require bone preserving therapy at this time. Assessment & Plan (09/01/2023 8:29 AM EST): Continue proper calcium and vitamin D supplementation. Fall and fracture prevention strategies and daily weightbearing exercises. Interval bone density requested to make sure that she does not require bone preserving therapy. Assessment & Plan (05/03/2023 8:02 AM EST): Continue proper calcium and vitamin D supplementation. Fall and fracture prevention strategies and daily weightbearing exercises. Interval bone density requested to make sure that she does not require bone preserving therapy. Assessment & Plan (12/17/2022 9:37 AM EDT): Continue proper calcium and vitamin D supplementation. Fall and fracture prevention strategies and daily weightbearing exercises. Interval bone density requested to make sure that she does not require bone preserving therapy. Assessment & Plan (10/13/2021 4:27 PM EDT): Continue proper calcium and vitamin D supplementation. Fall and fracture prevention strategies and daily weightbearing exercises. Interval bone density requested to make sure that she does not require bone preserving therapy. Assessment & Plan (08/17/2019 8:55 PM EST): Proper calcium and vitamin D supplementation. Daily weightbearing exercises. Fall and fracture prevention strategies. Assessment & Plan (06/12/2019 10:05 AM EST): Proper calcium and vitamin D supplementation. Daily weightbearing exercises. Fall and fracture prevention strategies. Assessment & Plan (04/18/2019 4:59 PM EDT): Proper calcium and vitamin D supplementation. Daily weightbearing exercises. Fall and fracture prevention strategies. Assessment & Plan (02/25/2019 9:45 PM EDT): Proper calcium and vitamin D supplementation. Daily weightbearing exercises. Fall and fracture prevention strategies. Mild persistent asthma without complication 10/27 Assessment & Plan (03/02/2025 3:42 PM EDT): Stable. - Uses inhaler infrequently. Assessment & Plan (07/26/2024 4:22 PM EST): 63-year-old female with asthma exacerbation in the setting of immune compromise with T2DM and RA on DMARD. Recommend use of Symbicort for acute exacerbation per EDWINA guidelines. She has never used an ICS and I discussed the importance of rinsing the mouth after each use to prevent thrush. Lotus feels she would benefit from an additional course of steroids and based on her lung exam this seems reasonable. She has already had a chest x-ray just a few days ago so I deferred repeating this. Follow-up if symptoms worsen or fail to improve Postmenopausal 11/17/2018 Bilateral occipital neuralgia 10/03/2018 Cervical facet joint syndrome 10/03/2018 Assessment & Plan (12/02/2021 5:44 PM EDT): Proper neck posture and during day and for nighttime. Avoid repetitive bending or extending. Ergonomic workstation. Use warm pack versus warm shower prior to gentle, regular ROM, stretching and muscle strengthening exercises -examples of neck exercises with pictures and detailed instructions printed for home use today. If not better despite above measures may need to consider formal PT.. Pain in both hands 09/16/2018 Anxiety 05/19/2017 Assessment & Plan (04/03/2024 11:47 AM EDT): JENNIFER-7 Total Score: 12 Reviewed with patient. Decrease from previous result of 19 in January. Mutually agreed to continue medications as prescribed; Wellbutrin 450 mg daily, Abilify 5 mg, duloxetine 60 mg as prescribed. She does have as needed Ativan 0.5 mg as needed for heightened anxiety, last filled November 2023, quantity 30. Assessment & Plan (02/18/2024 12:54 PM EDT): JENNIFER-7 Total Score: 19 Discussed with patient. Wellbutrin dosage increased to 450 mg daily. Continue Abilify 5 mg and Duloxetine 60 mg as prescribed. Continue PRN Ativan 0.5 mg as needed for heightened anxiety and reviewed minimizing use as she is aware of potential risks. Assessment & Plan (11/03/2023 10:54 AM EDT): JENNIFER-7 total score of 15 reviewed with patient. Discussed potential referral to [facility] health services for medication evaluation and potential alteration in treatment plan. She is agreeable to this and referral was placed and appointment scheduled upon leaving today. I do think that she would benefit from psychotherapy however this is not currently possible during due to concern for financial constraints Assessment & Plan (2023 5:48 PM EST): JENNIFER-7 administered in total score of 17 which indicates severe anxiety. See depression plan Depression 05/19/2017 Assessment & Plan (04/03/2024 11:48 AM EDT): Images from the original note were not included. 02/18/2024 10:48 AM 03/31/2024 10:28 AM 03/31/2024 10:36 AM PHQ Depression Screening Score Little interest or pleasure in doing things Nearly every day Several days Several days Feeling down, depressed, or hopeless More than half of the days Several days Several days Trouble falling or staying asleep, or sleeping too much More than half the days Several days Not at all Feeling tired or having little energy Nearly every day Several days Several days Poor appetite or overeating More than half the days Not at all Not at all Feeling bad about yourself - or that you are a failure or have let yourself or your family down More than half the days Not at all Not at all Trouble concentrating on things, such as reading the newspaper or watching television Nearly every day Not at all Several days Moving or speaking so slowly that other people could have noticed. Or the opposite - being so fidgety or restless that you have been moving around a lot more than usual Nearly every day Not at all Several days Thoughts that you would be better off , or of hurting yourself in some way Several days Not at all Not at all If you checked off any problems, how difficult have these problems made it for you to do your work, take care of things at home, or get along with other people? Somewhat difficult Somewhat difficult Not difficult at all PHQ-9 Total Score 21 4 5 Reviewed with patient. Significantly improved since last result in January since increasing Wellbutrin dosage. Continue medications as prescribed and follow-up with therapy as scheduled Assessment & Plan (02/18/2024 12:21 PM EDT): Images from the original note were not included. 08/04/2023 3:25 PM 11/02/2023 9:44 AM 02/18/2024 10:48 AM PHQ Depression Screening Score Little interest or pleasure in doing things Several days Several days Nearly every day Feeling down, depressed, or hopeless Several days Several days More than half of the days Trouble falling or staying asleep, or sleeping too much Nearly every day More than half the days More than half the days Feeling tired or having little energy Nearly every day Several days Nearly every day Poor appetite or overeating Nearly every day Not at all More than half the days Feeling bad about yourself - or that you are a failure or have let yourself or your family down Nearly every day Not at all More than half the days Trouble concentrating on things, such as reading the newspaper or watching television Nearly every day More than half the days Nearly every day Moving or speaking so slowly that other people could have noticed. Or the opposite - being so fidgety or restless that you have been moving around a lot more than usual Nearly every day More than half the days Nearly every day Thoughts that you would be better off , or of hurting yourself in some way Not at all Not at all Several days If you checked off any problems, how difficult have these problems made it for you to do your work, take care of things at home, or get along with other people? Somewhat difficult Somewhat difficult Somewhat difficult PHQ-9 Total Score 20 9 21 Reviewed with patient. Patient does report some passive suicidal ideation although denies plan or intent. She denies SI or HI. We mutually agree to increase wellbutrin dosage to 450 mg daily as she noticed some benefit to initial dosage increase. Treatment evaluation in 6 weeks scheduled. Referral placed to psychotherapy and she will contact insurance regarding coverage. Assessment & Plan (11/03/2023 10:54 AM EDT): PHQ-9 administered and total score of 9. Results reviewed with patient. Assessment & Plan (2023 5:48 PM EST): PHQ-9 administered and total score of 20 which indicates severe depression. Patient is not currently engaged in therapy as she notes that with previous insurance it was very cost prohibitive. Now that she is eligible for Medicare she is interested in establishing with a therapist. Continue medications as prescribed and discussed social involvement and activity Assessment & Plan (11/06/2019 8:16 AM EDT): Continue meds as prescribed. Regular follow-up with psychotherapist as scheduled Assessment & Plan (08/14/2019 9:20 AM EST): Continue meds as prescribed. Regular follow-up with psychotherapist as scheduled Assessment & Plan (06/12/2019 10:04 AM EST): Continue meds as prescribed. Regular follow-up with psychotherapist as scheduled Assessment & Plan (04/18/2019 4:58 PM EDT): Continue meds as prescribed. Regular follow-up with psychotherapist as scheduled Assessment & Plan (02/25/2019 9:26 PM EDT): Continue meds as prescribed. Regular follow-up with psychotherapist as scheduled Fibromyalgia 05/19/2017 Assessment & Plan (03/02/2025 3:42 PM EDT): Chronic. Reports frequent pain and fatigue, managed with water aerobics and medication. - Under the care of Dr. Gonzalez with an upcoming appointment to discuss potential adjustments to medication regimen. Declines psychotherapy Assessment & Plan (11/03/2024 8:31 AM EDT): Due to severe fibromyalgia flare for over a week that does not respond to the usual strategies of warm packs, Tylenol, topical products, TENS units I agreed to build up the dose of Cymbalta from 60 mg to 80 mg and provided her appropriate prescription for it. She is warned about possible risk of increased sedation or grogginess in the morning and asked to call if any problems otherwise return in 4 months as scheduled. Provided her symptoms improve she may return back to nightly Cymbalta 60 mg. Balance rest and activity. Sleep hygiene. Proper hydration. Gentle, regular exercise routine. Regular relaxation/meditation, positive imagery, DNRS etc. Additional benefit may be achieved by reading book written by Dr Ravindra Nieves [employer] addressing management strategies for people with fibromyalgia using mindfulness approach. Another good source of self management strategies may be Managing pain before it manages you by Dr. Sarah Lott. In case her anxiety is difficult to manage despite above strategies she may benefit from formal in person or remote psychotherapy. Assessment & Plan (07/07/2024 8:35 AM EST): Carefully continue Cymbalta 60 mg daily Balance rest and activity. Sleep hygiene. Proper hydration. Gentle, regular exercise routine. Regular relaxation/meditation, positive imagery, DNRS etc. Additional benefit may be achieved by reading book written by Dr Ravindra becker addressing management strategies for people with fibromyalgia using mindfulness approach. Another good source of self management strategies may be Managing pain before it manages you by Dr. Sarah Lott. In case her anxiety is difficult to manage despite above strategies she may benefit from formal in person or remote psychotherapy. Assessment & Plan (12/22/2023 10:09 AM EDT): Carefully continue Cymbalta 60 mg daily Balance rest and activity. Sleep hygiene. Proper hydration. Gentle, regular exercise routine. Regular relaxation/meditation, positive imagery, DNRS etc. Additional benefit may be achieved by reading book written by Dr Ravindra bekcer addressing management strategies for people with fibromyalgia using mindfulness approach. Another good source of self management strategies may be Managing pain before it manages you by Dr. Sarah Lott. In case her anxiety is difficult to manage despite above strategies she may benefit from formal in person or remote psychotherapy. Assessment & Plan (09/01/2023 8:51 AM EST): Carefully continue Cymbalta 60 mg daily Balance rest and activity. Sleep hygiene. Proper hydration. Gentle, regular exercise routine. Regular relaxation/meditation, positive imagery, DNRS etc. Additional benefit may be achieved by reading book written by Dr Ravindra becker addressing management strategies for people with fibromyalgia using mindfulness approach. Another good source of self management strategies may be Managing pain before it manages you by Dr. Sarah Lott. In case her anxiety is difficult to manage despite above strategies she may benefit from formal in person or remote psychotherapy. Assessment & Plan (05/03/2023 8:01 AM EST): Carefully continue Cymbalta 60 mg daily Balance rest and activity. Sleep hygiene. Proper hydration. Gentle, regular exercise routine. Regular relaxation/meditation, positive imagery, DNRS etc. Additional benefit may be achieved by reading book written by Dr Ravindra becker addressing management strategies for people with fibromyalgia using mindfulness approach. Assessment & Plan (12/17/2022 9:36 AM EDT): Carefully continue Cymbalta 60 mg daily Balance rest and activity. Sleep hygiene. Proper hydration. Gentle, regular exercise routine. Regular relaxation/meditation, positive imagery, DNRS etc. Additional benefit may be achieved by reading book written by Dr Ravindra becker addressing management strategies for people with fibromyalgia using mindfulness approach. Assessment & Plan (10/13/2021 4:30 PM EDT): Carefully continue Cymbalta 60 mg daily Balance rest and activity. Sleep hygiene. Proper hydration. Gentle, regular exercise routine. Regular relaxation/meditation, positive imagery, DNRS etc. Additional benefit may be achieved by reading book written by Dr Ravindra becker addressing management strategies for people with fibromyalgia using mindfulness approach. Assessment & Plan (10/15/2020 11:27 PM EDT): Carefully continue Cymbalta 60 mg daily Balance rest and activity. Sleep hygiene. Proper hydration. Gentle, regular exercise routine. Regular relaxation/meditation, positive imagery, DNRS etc. Additional benefit may be achieved by reading book written by Dr Ravindra becker addressing management strategies for people with fibromyalgia using mindfulness approach. Assessment & Plan (07/09/2020 5:25 PM EST): Carefully Cymbalta 60 mg daily Balance rest and activity. Sleep hygiene. Proper hydration. Gentle, regular exercise routine. Regular relaxation/meditation, positive imagery, DNRS etc. Additional benefit may be achieved by reading book written by Dr Ravindra becker addressing management strategies for people with fibromyalgia using mindfulness approach. Assessment & Plan (04/30/2020 11:42 AM EST): Carefully Cymbalta 60 mg daily Balance rest and activity. Sleep hygiene. Proper hydration. Gentle, regular exercise routine. Regular relaxation/meditation, positive imagery, DNRS etc. Assessment & Plan (02/19/2020 9:19 AM EDT): Carefully try Savella 12.5 mg twice daily Balance rest and activity. Sleep hygiene. Proper hydration. Gentle, regular exercise routine. Regular relaxation/meditation, positive imagery, DNRS etc. Assessment & Plan (04/18/2019 4:58 PM EDT): Continue Cymbalta and gabapentin as prescribed. Due to ongoing diffuse pain I suggested her to speak to her prescribing provider about possibility of increasing gabapentin dose from 300 mg to 600 mg nightly. Balance rest and activity. Sleep hygiene. Proper hydration. Gentle, regular exercise routine. Regular relaxation/meditation, positive imagery, DNRS etc. Assessment & Plan (02/25/2019 9:25 PM EDT): Continue Cymbalta and gabapentin as prescribed. Balance rest and activity. Sleep hygiene. Proper hydration. Gentle, regular exercise routine. Regular relaxation/meditation, positive imagery, DNRS etc. Gastroesophageal reflux disease without esophagi tis 05/19/2017 Assessment & Plan (11/03/2024 7:59 AM EDT): Avoid late, large, spicy meals. Keep headboard elevated at 45 angle for nighttime. Carefully continue omeprazole 20 mg daily as prescribed. Assessment & Plan (07/07/2024 8:35 AM EST): Avoid late, large, spicy meals. Keep headboard elevated at 45 angle for nighttime. Carefully continue omeprazole 20 mg daily as prescribed. Assessment & Plan (12/25/2023 5:43 PM EDT): Avoid late, large, spicy meals. Keep headboard elevated at 45 angle for nighttime. Carefully continue omeprazole 20 mg daily as prescribed. Assessment & Plan (05/25/2022 4:24 PM EST): Avoid late, large, spicy meals. Keep headboard elevated at 45 angle for nighttime. Assessment & Plan (10/13/2021 4:28 PM EDT): Avoid late, large, spicy meals. Keep headboard elevated at 45 angle for nighttime. Assessment & Plan (10/15/2020 11:28 PM EDT): Avoid late, large, spicy meals. Keep headboard elevated at 45 angle for nighttime. Assessment & Plan (07/08/2020 9:42 AM EST): Avoid late, large, spicy meals. Keep headboard elevated at 45 angle for nighttime. Assessment & Plan (04/30/2020 11:42 AM EST): Avoid late, large, spicy meals. Keep headboard elevated at 45 angle for nighttime. Assessment & Plan (02/20/2020 3:38 PM EDT): Limit or eliminate oral NSAIDs and substitute with topical products. Avoid late, large, spicy meals. Keep headboard elevated at 45 angle for nighttime. Assessment & Plan (11/06/2019 8:16 AM EDT): Avoid late, large, spicy meals. Keep headboard elevated at 45 angle for nighttime. Assessment & Plan (08/14/2019 9:21 AM EST): Avoid late, large, spicy meals. Keep headboard elevated at 45 angle for nighttime. Assessment & Plan (06/12/2019 10:04 AM EST): Avoid late, large, spicy meals. Keep headboard elevated at 45 angle for nighttime. Paget's disease of bone 05/19/2017 Assessment & Plan (11/03/2024 7:59 AM EDT): She reports involvement of calvarium for which she received 2 Reclast infusions in the past. Repeated alk phos returned stable as did skull x-rays from [facility] 02/24/2020 (where she had previous images) Periodic monitoring indicated. Assessment & Plan (07/07/2024 8:34 AM EST): She reports involvement of calvarium for which she received 2 Reclast infusions in the past. Repeated alk phos returned stable as did skull x-rays from [facility] 02/24/2020 (where she had previous images) Periodic monitoring indicated. Assessment & Plan (12/22/2023 10:09 AM EDT): She reports involvement of calvarium for which she received 2 Reclast infusions in the past. Repeated alk phos returned stable as did skull x-rays from [facility] 02/24/2020 (where she had previous images) Periodic monitoring indicated. Assessment & Plan (09/01/2023 8:29 AM EST): She reports involvement of calvarium for which she received 2 Reclast infusions in the past. Repeated alk phos returned stable as did skull x-rays from [facility] 02/24/2020 (where she had previous images) Periodic monitoring indicated. Assessment & Plan (05/03/2023 8:02 AM EST): She reports involvement of calvarium for which she received 2 Reclast infusions in the past. Repeated alk phos returned stable as did skull x-rays from [facility] 02/24/2020 (where she had previous images) Periodic monitoring indicated. Assessment & Plan (12/17/2022 9:34 AM EDT): She reports involvement of calvarium for which she received 2 Reclast infusions in the past. Repeated alk phos returned stable as did skull x-rays from [facility] 02/24/2020 (where she had previous images) Periodic monitoring indicated. Assessment & Plan (05/25/2022 4:25 PM EST): She reports involvement of calvarium for which she received 2 Reclast infusions in the past. Repeated alk phos returned stable as did skull x-rays from [facility] 02/24/2020 (where she had previous images) Periodic monitoring indicated. Assessment & Plan (02/12/2022 10:52 AM EDT): She reports involvement of calvarium for which she received 2 Reclast infusions in the past. Repeated alk phos returned stable as did skull x-rays from [facility] 02/24/2020 (where she had previous images) Periodic monitoring indicated. Assessment & Plan (11/13/2021 3:55 PM EDT): She reports involvement of calvarium for which she received 2 Reclast infusions in the past. Repeated alk phos returned stable as did skull x-rays from [facility] 02/24/2020 (where she had previous images) Periodic monitoring indicated. Assessment & Plan (05/11/2021 8:48 PM EST): She reports involvement of calvarium for which she received 2 Reclast infusions in the past. Repeated alk phos returned stable as did skull x-rays from [facility] 02/24/2020 (where she had previous images) Periodic monitoring indicated. Assessment & Plan (10/07/2020 2:56 PM EDT): She reports involvement of calvarium for which she received 2 Reclast infusions in the past. Repeated alk phos returned stable as did skull x-rays from [facility] 02/24/2020 (where she had previous images) Periodic monitoring indicated. Assessment & Plan (07/09/2020 5:29 PM EST): She reports involvement of calvarium for which she received 2 Reclast infusions in the past. Repeated alk phos returned stable as did skull x-rays from [facility] 02/24/2020 (where she had previous images) Periodic monitoring indicated. Assessment & Plan (04/29/2020 8:45 AM EST): She reports involvement of calvarium for which she received 2 Reclast infusions in the past. She is symptomatic, alk phos is slightly elevated-repeat today and if ongoing elevation get skulll x-rays preferably at [facility] where she had previous images. Assessment & Plan (02/20/2020 3:39 PM EDT): She reports involvement of calvarium for which she received 2 Reclast infusions in the past. She is symptomatic, alk phos is slightly elevated-repeat today and if ongoing elevation get skulll x-rays preferably at [facility] where she had previous images. Assessment & Plan (11/06/2019 8:16 AM EDT): She reports involvement of calvarium for which she received 2 Reclast infusions in the past. She is asymptomatic, alk phos is stable-monitor Assessment & Plan (08/14/2019 9:22 AM EST): She reports involvement of calvarium for which she received 2 Reclast infusions in the past. She is asymptomatic, alk phos is stable-monitor Assessment & Plan (06/12/2019 10:06 AM EST): She reports involvement of calvarium for which she received 2 Reclast infusions in the past. She is asymptomatic, alk phos is stable-monitor Assessment & Plan (04/18/2019 4:59 PM EDT): She reports involvement of calvarium for which she received 2 Reclast infusions in the past. She is asymptomatic, alk phos is stable-monitor Assessment & Plan (02/25/2019 9:44 PM EDT): She reports involvement of calvarium for which she received 2 Reclast infusions in the past. Alk phos is stable-monitor Psychophysiological insomnia 05/19/2017 Essential hypertension 05/19/2017 Assessment & Plan (03/02/2025 3:42 PM EDT): At goal for age and comorbidities without signs or symptoms of end organ damage. Continue current medications. Assessment & Plan (2023 5:44 PM EST): Treatment goal of less than 130/80 given diagnosis of diabetes. Slightly elevated today in office. Encouraged at home monitoring Resolved Problems Problem Noted Date Diagnosed Date Resolved Date Patriciapathy of right rotator cuff 05/03/2023 03/02/2025 Assessment & Plan (05/03/2023 1:08 PM EST): Use warm packs versus warm shower prior to gentle, regular exercising. Examples of appropriate exercises with pictures and detailed instructions printed for home use today since she cannot afford to go to formal PT due to high copayment ($60) Trochanteric bursitis of right hip 12/17/2022 03/02/2025 Assessment & Plan (05/03/2023 1:09 PM EST): Procedure: After an informed written consent, under sterile conditions using Ethyl chloride spray for local anesthesia I have injected 40 mg Kenalog and 2 cc 1% Lidocaine into Right trochanteric bursa uneventfully. Details of post-procedure care were explained to the patient in the office and given in writing. Provider: Madhuri Max MD Patient: Lotus Damon : 1960 Date: 05/03/2023 Due to high copayment she is unable to participate in formal PT therefore I asked her to get regular exercises at home after warm pack or warm shower-examples with pictures and detailed instructions printed for home use today. Assessment & Plan (12/17/2022 9:33 AM EDT): Procedure: After an informed oral consent, under sterile conditions using Ethyl chloride spray for local anesthesia I have injected 40 mg Kenalog and 2 cc 1% Lidocaine into Right trochanteric bursa uneventfully. Details of post-procedure care were explained to the patient in the office and given in writing. Provider: Madhuri Max MD Patient: Lotus Damon : 1960 Date: 12/17/2022 Trochanteric bursitis of both hips 10/03/2021 12/17/2022 Assessment & Plan (05/25/2022 4:25 PM EST): Procedure: After an informed oral consent, under sterile conditions using Ethyl chloride spray for local anesthesia I have injected 40 mg DepoMedrol and 2 cc 1% Lidocaine into Right trochanteric bursa uneventfully. Details of post-procedure care were explained to the patient in the office and given in writing. Provider: Madhuri Max MD Patient: Lotus Damon : 1960 Date: 05/25/2022 Assessment & Plan (10/03/2021 3:11 PM EDT): Procedure: After an informed oral consent, under sterile conditions using Ethyl chloride spray for local anesthesia and cc 1% Lidocaine as topical anesthetic I have injected 40 mg DepoMedrol and 2 cc 1% Lidocaine into Right trochanteric bursa uneventfully. Details of post-procedure care were explained to the patient in the office and given in writing. Provider: Madhuri Max MD Patient: Lotus Damon : 1960 Date: 10/03/2021 On SSRI therapy 07/08/2020 03/02/2025 Assessment & Plan (12/22/2023 10:10 AM EDT): Monitor for mood swings, increased muscle rigidity and temperature intolerance. Assessment & Plan (05/11/2021 8:49 PM EST): Monitor for mood swings, increased muscle rigidity and temperature intolerance. Assessment & Plan (10/15/2020 11:29 PM EDT): Monitor for mood swings, increased muscle rigidity and temperature intolerance. Assessment & Plan (07/08/2020 9:42 AM EST): Monitor for mood swings, increased muscle rigidity and temperature intolerance. Encounter for monitoring of etanercept therapy 04/29/2020 12/17/2022 Assessment & Plan (05/25/2022 4:24 PM EST): Continue weekly subcutaneous injections every Wednesday. Hold Enbrel if feeling sick, running fever or taking antibiotics. Complete entire course of antibiotic and wait at least 48 hours after the last dose of antibiotic before restarting Enbrel on its usual weekly schedule. Inform any new MD, PA, [employer] about chronic immunosuppression with Enbrel whenever requiring emergency care. Assessment & Plan (02/12/2022 10:52 AM EDT): Continue weekly subcutaneous injections every Wednesday. Hold Enbrel if feeling sick, running fever or taking antibiotics. Complete entire course of antibiotic and wait at least 48 hours after the last dose of antibiotic before restarting Enbrel on its usual weekly schedule. Inform any new EDVIN RODRIGUEZ [employer] about chronic immunosuppression with Enbrel whenever requiring emergency care. Assessment & Plan (11/13/2021 3:55 PM EDT): Continue weekly subcutaneous injections every Wednesday. Hold Enbrel if feeling sick, running fever or taking antibiotics. Complete entire course of antibiotic and wait at least 48 hours after the last dose of antibiotic before restarting Enbrel on its usual weekly schedule. Inform any new EDVIN RODRIGUEZ NP about chronic immunosuppression with Enbrel whenever requiring emergency care. Assessment & Plan (10/13/2021 4:25 PM EDT): Continue weekly subcutaneous injections every Wednesday. Hold Enbrel if feeling sick, running fever or taking antibiotics. Complete entire course of antibiotic and wait at least 48 hours after the last dose of antibiotic before restarting Enbrel on its usual weekly schedule. Inform any new EDVIN RODRIGUEZ NP about chronic immunosuppression with Enbrel whenever requiring emergency care. Assessment & Plan (05/11/2021 8:49 PM EST): Continue weekly subcutaneous injections every Wednesday. Hold Enbrel if feeling sick, running fever or taking antibiotics. Complete entire course of antibiotic and wait at least 48 hours after the last dose of antibiotic before restarting Enbrel on its usual weekly schedule. Inform any new EDVIN RODRIGUEZ NP about chronic immunosuppression with Enbrel whenever requiring emergency care. Assessment & Plan (10/15/2020 11:29 PM EDT): Continue weekly subcutaneous injections every Wednesday. Hold Enbrel if feeling sick, running fever or taking antibiotics. Complete entire course of antibiotic and wait at least 48 hours after the last dose of antibiotic before restarting Enbrel on its usual weekly schedule. Inform any new EDVIN RODRIGUEZ [employer] about chronic immunosuppression with Enbrel whenever requiring emergency care. Assessment & Plan (07/08/2020 9:43 AM EST): Continue weekly subcutaneous injections every Wednesday. Hold Enbrel if feeling sick, running fever or taking antibiotics. Complete entire course of antibiotic and wait at least 48 hours after the last dose of antibiotic before restarting Enbrel on its usual weekly schedule. Inform any new EDVIN RODRIGUEZ [employer] about chronic immunosuppression with Enbrel whenever requiring emergency care. Assessment & Plan (04/30/2020 11:45 AM EST): Continue weekly subcutaneous injections every Wednesday. Hold Enbrel if feeling sick, running fever or taking antibiotics. Complete entire course of antibiotic and wait at least 48 hours after the last dose of antibiotic before restarting Enbrel on its usual weekly schedule. Inform any new EDVIN RODRIGUEZ [employer] about chronic immunosuppression with Enbrel whenever requiring emergency care. Trochanteric bursitis 04/29/20202019 Methotrexate, long term acute care registered nurse, current use 08/14/2019 04/30/2020 Assessment & Plan (02/20/2020 3:42 PM EDT): Switch oral to s.c administration. Hold methotrexate whenever running fever, feeling sick or taking antibiotics. Complete entire course of antibiotic and wait at least 48 hours after the last antibiotic dose to make sure that symptoms do not return before returning to regular weekly methotrexate schedule Refrain from alcohol drinking while taking methotrexate. Make sure to provide enough vitamin group B: B1, B2, B6 2 improve hair regrowth. Consider Viviscal supplement to improve hair quality. Use double contraception if sexually active while taking methotrexate Inform any new EDVIN RODRIGUEZ, [employer] about chronic therapy with methotrexate particularly in emergency situations. Assessment & Plan (11/06/2019 8:19 AM EDT): Take exactly as prescribed. Hold methotrexate whenever running fever, feeling sick or taking antibiotics. Refrain from alcohol drinking while taking methotrexate. Use double contraception if sexually active while taking methotrexate Inform any new EDVIN RODRIGUEZ, [employer] about chronic therapy with methotrexate particularly in emergency situations. Assessment & Plan (08/17/2019 8:57 PM EST): Take exactly as prescribed. Hold methotrexate whenever running fever, feeling sick or taking antibiotics. Refrain from alcohol drinking while taking methotrexate. Use double contraception if sexually active while taking methotrexate Inform any new MD, PA, [employer] about chronic therapy with methotrexate particularly in emergency situations. Trochanteric bursitis of left hip 04/07/2019 03/02/2025 Assessment & Plan (10/07/2020 2:58 PM EDT): Procedure: After an informed oral consent, under sterile conditions using Ethyl chloride spray for local anesthesia I have injected 40 mg DepoMedrol and 2 cc 1% Lidocaine into Left uneventfully. Details of post-procedure care were explained to the patient in the office and given in writing. Assessment & Plan (04/29/2020 8:59 AM EST): Procedure: After an informed oral consent, under sterile conditions using Ethyl chloride spray for local anesthesia I have injected 40 mg DepoMedrol and 2 cc 1% Lidocaine into Left trochanteric bursa from uneventfully. Details of post-procedure care were explained to the patient in the office and given in writing. Assessment & Plan (04/18/2019 5:00 PM EDT): Joint protection, energy conservation. Avoid falls, injuries, overuse, heavy lifting, sudden turns. Gentle, regular ROM and muscle stretching exercises preceded by the warm pack or warm shower. Procedure: After an informed oral consent, under sterile conditions using Ethyl chloride spray for local anesthesia I have injected 40 mg DepoMedrol and 2 cc 1% Lidocaine into Left trochanteric bursa uneventfully. Details of post-procedure care were explained to the patient in the office and given in writing. alf current use of non -steroidal anti-inflammatories (NSAID) 11/17/2018 04/28/2021 Assessment & Plan (10/15/2020 11:28 PM EDT): Take the lowest dose, with least frequency, for shortest time. Remember to take it always with food. Favor topical over oral preparations. Assessment & Plan (07/08/2020 9:42 AM EST): Take the lowest dose, with least frequency, for shortest time. Remember to take it always with food. Favor topical over oral preparations. Assessment & Plan (04/30/2020 11:43 AM EST): Take the lowest dose, with least frequency, for shortest time. Remember to take it always with food. Favor topical over oral preparations. Assessment & Plan (02/19/2020 9:10 AM EDT): Take the lowest dose, with least frequency, for shortest time. Remember to take it always with food. Favor topical over oral preparations. Assessment & Plan (11/06/2019 8:17 AM EDT): Take the lowest dose, with least frequency, for shortest time. Remember to take it always with food. Favor topical over oral preparations. Assessment & Plan (08/14/2019 9:21 AM EST): Take the lowest dose, with least frequency, for shortest time. Remember to take it always with food. Favor topical over oral preparations. Assessment & Plan (06/12/2019 10:05 AM EST): Take the lowest dose, with least frequency, for shortest time. Remember to take it always with food. Favor topical over oral preparations. Assessment & Plan (04/18/2019 5:00 PM EDT): Take the lowest dose, with least frequency, for shortest time. Remember to take it always with food. Favor topical over oral preparations. Assessment & Plan (02/25/2019 9:45 PM EDT): Take the lowest dose, with least frequency, for shortest time. Remember to take it always with food. Favor topical over oral preparations. On statin therapy 11/17/2018 03/02/2025 Assessment & Plan (11/13/2021 3:55 PM EDT): Monitor for muscle tenderness, swelling and weakness Assessment & Plan (05/11/2021 8:49 PM EST): Monitor for muscle tenderness, swelling and weakness Assessment & Plan (10/15/2020 11:28 PM EDT): Monitor for muscle tenderness, swelling and weakness Assessment & Plan (07/08/2020 9:41 AM EST): Monitor for muscle tenderness, swelling and weakness Assessment & Plan (04/30/2020 11:43 AM EST): Monitor for muscle tenderness, swelling and weakness Assessment & Plan (02/19/2020 9:10 AM EDT): Monitor for muscle tenderness, swelling and weakness Assessment & Plan (11/06/2019 8:18 AM EDT): Monitor for muscle tenderness, swelling and weakness Assessment & Plan (08/14/2019 9:22 AM EST): Monitor for muscle tenderness, swelling and weakness Assessment & Plan (06/12/2019 10:05 AM EST): Monitor for muscle tenderness, swelling and weakness Assessment & Plan (04/18/2019 5:00 PM EDT): Monitor for muscle tenderness, swelling and weakness Assessment & Plan (02/25/2019 9:46 PM EDT): Monitor for muscle tenderness, swelling and weakness Class 1 obesity due to exces s calories in adult 11/17/2018 03/02/2025 Assessment & Plan (05/11/2021 8:49 PM EST): Portion control. Limit concentrated sugars, saturated fats and calories in the diet. Keep well-hydrated. If unable to achieve expected goal consider formal dietary/nutritional support. Assessment & Plan (08/14/2019 9:20 AM EST): .Portion control. Limit concentrated sugars, saturated fats and calories in the diet. Keep well-hydrated. If unable to achieve expected goal consider formal dietary/nutritional support. Assessment & Plan (06/12/2019 10:04 AM EST): Portion control. Limit concentrated sugars, saturated fats and calories in the diet. Keep well-hydrated. If unable to achieve expected goal consider formal dietary/nutritional support. Assessment & Plan (04/18/2019 4:55 PM EDT): Portion control. Limit concentrated sugars, saturated fats and calories in the diet. Keep well-hydrated. If unable to achieve expected goal consider formal dietary/nutritional support. Assessment & Plan (02/25/2019 9:22 PM EDT): Portion control. Limit concentrated sugars, saturated fats and calories in the diet. Keep well-hydrated. If unable to achieve expected goal consider formal dietary/nutritional support. Myalgia 10/03/2018 03/02/2025 Impacted cerumen of left ear 11/06/2017 06/03/2018 Assessment & Plan (11/06/2017 10:50 AM EDT): Debrox as directed bid, f/u next week for add'l irrigation Acute respiratory infection 11/06/2017 06/03/2018 Assessment & Plan (11/06/2017 10:50 AM EDT): Continue albuterol use prn. Increase daily water intake. Reports hx prednisone use with similar cough/chest tightness. Reviewed impact upon blood sugar, currently not controlled. Pt will trial conservative tx. Begin guaifenesin-codeine prn. Advised this will cause drowsiness, and to avoid use before driving. Can also trial mucinex 600 mg during the day. If any refractory wheezing/respiratory sx will f/u immediately. Acute pansinusitis 11/06/2017 8 Assessment & Plan (11/06/2017 10:51 AM EDT): Sudafed BID. Will f/u if any persistent congestion/facial pressure. Acute pain of right shoulder 10/28/2017 06/03/2018 Acute right-sided low back p ain with right-sided sciatica 10/28/2017 06/03/2018 Mixed hyperlipidemia 05/19/2017 025 Assessment & Plan (2023 5:44 PM EST): Lipid panel as ordered Type 2 diabetes mellitus without complication 05/19/20 17 09/28/2023 Assessment & Plan (2023 5:47 PM EST): Last A1c March 2023 was 5.8%. Patient denies having any significant lows and continues with continuous glucose monitoring. Currently taking semaglutide 14 mg, and glipizide 2.5 mg. A1c is ordered and follow-up in 3 months Assessment & Plan (11/06/2019 10:07 PM EDT): Avoid concentrated sugars in the diet. Continue glipizide and Trulicity exactly as prescribed and follow closely with prescribing physician as scheduled. Aim at BS 90- 120 mg % Assessment & Plan (04/18/2019 4:55 PM EDT): Close follow-up with PCP, railroad car cleaning supervisor and diabetic nurse educator as scheduled. Aim at BS=90-110 mg % Assessment & Plan (02/25/2019 9:22 PM EDT): Close follow-up with PCP, railroad car cleaning supervisor and diabetic nurse educator as scheduled. Aim at BS=90-110 mg % Encounters Date Type Department Care Team Description 03/02/2025 8:40 AM EDT Office Visit [facility] [address] [place] [address] [address] [place] [address] Nakita Bella MD Abnormal abdominal MRI (Primary Dx); Fibromyalgia; Essential hypertension; Type 2 diabetes mellitus with right eye affected by mild nonproliferative retinopathy without macular edema, without long-term current use of insulin; Mild persistent asthma without complication 02/04/2025 Refill [facility] [address] [place] [address] Hailey Decker, ABRAHAM Medication Refill 01/26/2025 Refill [facility] [address] [place] [address] [place] [address] Lavelle Alicea, Med Change Request 12/28/2024 Refill [facility] [address] [place] [address] Madhuri Max MD Med Change Request 12/21/2024 Documentation [facility] [address] [place] [address] [phone] Ayde Martinez RPH from Last 3 Months Immunizations Immunization Administration Dates Next Due COVID-19 (Pre-04/19) Moderna Vaccine, mRNA, PF 08/19/2020,07/22/2020 INFLUENZA, SPLIT VIRUS, TRIV ALENT W/ PRESERVATIVE IM 04/03/2014,04/30/2012,05/20/2011 Influenza High-Dose Trivalen t Preservative Free IM 03/02/2025,02/09/2024 Influenza Quadrivalent MDCK Preservative Free IM 03/23/2023,02/26/2022 Influenza Quadrivalent Prese rvative Free IM 04/16/2021,02/28/2020,03/31/2019,03/31 Influenza trivalent preserva tive free intradermal 03/07/2013 Influenza, Unspecified Formulation 03/28/2018,,04/12/2009 PPD Test 04/16/2021,12/29/2011 Pneumococcal conjugate PCV13 03/31/2019 Pneumococcal polysaccharide PPSV23 04/16/2021 RSV Vaccine (monovalent, adjuvanted) 04/14/2023 Tdap 07/14/2019 Zoster recombinant 07/14/2019,02/13/2019 Family History Medical History Relation Comments Diabetes Brother Hyperlipidemia Brother Hypertension Brother No Known Problems Daughter Cancer Father Stomach cancer Father Diabetes mellitus Mother Hypertension Mother Stroke Mother Dementia Sister 1 Liver cancer Sister 1 Not a drinker No Known Problems Son Relation Status Comments Brother Alive Daughter Alive Father Mother Sister 1 Sister 2 Alive Son Alive Social History Tobacco Use Types Packs/Day Years Used Date Smoking Tobacco: Never Passive Smoke Exposure: Never Smokeless Tobacco: Never Tobacco Cessation:Counseling Given: Not Answered Alcohol Use Standard Drinks/Week Comments Not Currently [...] high school, GED, job training, learning the [place] language, technical skills, or developing parenting skills)? [...] your housing situation today? I have jasper sing 08/04/2023 How many times have you move [...] tries to control you? No 08/04/2023 Comments No Sex and Gender Information Value Date Recorded Sex Assigned at Female 08/04/2022 10:42 AM EST Legal Sex Female 9:50 PM EDT Gender Identity Female 08/04/2022 10:42 AM EST Sexual Orientation Straight 08/04/2022 10 :42 AM EST Last Filed Vital Signs Vital Sign Reading Time Taken Comments Blood Pressure 116/68 03/02/2025 8:42 AM EDT Pulse 93 03/02/2025 8:42 AM EDT Temperature 36.8 C (98.3 F) 10/18/2024 2:26 PM EDT Respiratory Rate 16 06/25/2023 1:23 PM EST Oxygen Saturation 99% 03/02/2025 8:42 AM EDT Inhaled Oxygen Concentration - - Weight 71.9 kg (158 lb 9.6 oz) 03/02/2025 8:42 A M EDT Height 154.9 cm (5' 1 ) 11/16/2024 10:23 AM EDT Body Mass Index 29.97 11/16/2024 10:23 AM EDT Plan of Treatment Upcoming Encounters Date Type Department Care Team (Late st Contact Info) Description 03/26/2025 8:00 AM EDT Office Visit [facility] [address] [place] [address] Madhuri Max MD [address] [facility], [address] [place] [address] 04/04/2025 8:30 AM EDT Office Visit [facility] [address] [place] [address] Lavelle Alicea DO [address] [place] [address] 09/04/2025 10:00 AM EDT Office Visit [facility] [address] [facility] [address] [place] [address] Nakita Bella MD [address] [facility] [address] [place] [address] Health Maintenance Due Date Last Done Comments COLOGUARD 2003 FIT TEST 2003 FOBT 2003 SIGMOIDOSCOPY 2003 VIRTUAL COLONOSCOPY 2003 DIABETIC EYE EXAM 05/13/2024 05/13/2023, , 02/15/2019, Additional history exists COVID-19 VACCINE (8 - Moderna risk 2023- season) 2025 02/25/2024, 03/29/2023, 05/14/2022, Additional history exists DEPRESSION SCREENING 03/31/2025 03/31/2024, 03/31/20 24 HEMOGLOBIN A1C 03/31/2025 09/29/2024, 06/2023, 12/14/2023, Additional history exists BLOOD PRESSURE 08/30/2025 03/02/2025 FOLLOW UP BONE DENSITY TESTING 10/18/2025 10/19/2023, 09/01/2023, 10/17/2021, Additional history exists CREATININE LEVEL 10/25/2025 10/25/2024, , 07/07/2024, Additional history exists POTASSIUM LEVEL 10/25/2025 10/25/2024, 09/27, 07/07/2024, Additional history exists PNEUMOCOCCAL VACCINES (50+ years) (3 of 3 - PPSV23, PCV20 or PCV21) 04/16/2026 04/16/2021, 03/31/2019 MAMMOGRAM 05/15/2026 05/15/2024, 04/28, 05/07/2023, Additional history exists Adult Td,Tdap Booster 07/14/2029 07/14/2019 COLONOSCOPY 03/10/2031 03/10/2021, 02/03/2010 COLORECTAL CANCER SCREENING 03/10/2031 ZOSTER VACCINES Completed 07/14/2019, 02/13/2019 HEPATITIS C SCREENING Completed 12/08/2019, 019 RSV VACCINE Completed 04/14/2023 OSTEOPOROSIS SCREENING INITIAL (ONE-TIME) Completed 10/19/2023, 09/01/2023, 10/17/2021, Additional history exists INFLUENZA VACCINE Completed 03/02/2025, , 03/23/2023, Additional history exists SMOKING STATUS SCREENING (Once After 26 Yrs) Completed 03/02/2025 HEPATITIS A VACCINES Aged Out No long er eligible based on patient's age to complete this topic HIB VACCINES Aged Out No longer eligi ble based on patient's age to complete this topic MENINGOCOCCAL VACCINES (ACWY) Aged Out No longer eligible based on patient's age to complete this topic MENINGOCOCCAL VACCINES (B) Aged Out N o longer eligible based on patient's age to complete this topic Medical Devices Not on file Procedures Procedure Name Priority Date/Time Associated Diagnosis Comments COMPREHENSIVE METABOLIC PANEL Routine 10/25/2024 9:40 AM EDT Rheumatoid arthritis involving multiple sites with positive rheumatoid factor Paget's disease of bone Long-term use of immunosuppressant medication Encounter for monitoring Arava therapy HEMOGLOBIN A1C Routine 09/29/2024 8:09 AM EDT Type 2 diabetes mellitus with right eye affected by mild nonproliferative retinopathy without macular edema, without long-term current use of insulin MAMMOGRAPHY Routine 05/15/2024 4:25 PM EST DEXA SCAN Routine 10/19/2023 2:31 PM EDT DIABETES EYE EXAM FOR RESULT ENTRY ONLY Routine 05/13/2023 COLONOSCOPY FOR RESULT ENTRY ONLY Routine 03/10/2021 HEPATITIS C ANTIBODY, QUALITATIVE Routine 12/08/2019 10:09 AM EDT Rheumatoid factor positive Paget's disease of bone Type 2 diabetes mellitus without complication, without long-term current use of insulin On statin therapy from Last 3 Months or Most Recently Relevant to Health Maintenance Results * (ABNORMAL) Comprehensive metabolic panel (10/25/2024 9:40 AM EDT) SODIUM 143 133 - 146 mmol/L [facility] POTASSIUM 4.8 3.3 - 5.1 mmol/L [facility] CHLORIDE 107 96 - 108 mmol/L [facility] CO2 29 21 - 35 mmol/L [facility] BUN 18 6 - 19 mg/dL [facility] CREATININE 0.80 0.5 - 1.5 mg/dL [facility] GLUCOSE 130(H) 70 - 99 mg/dL [facility] ALBUMIN 4.4 3.9 - 4.8 g/dL [facility] TOTAL PROTEIN 7.2 6.5 - 8.0 g/dL [facility] CALCIUM 9.8 8.4 - 10.3 mg/dL [facility] ALKALINE PHOSPHATASE 102 39 - 117 U/L [facility] TOTAL BILIRUBIN 0.3 0.0 - 1.2 mg/dL [facility] AST 23 0 - 37 U/L [facility] ALT 14 0 - 40 U/L [facility] GLOBULIN 2.8 1 - 4.8 g/dL [facility] EGFR 81 >59 mL/min/1.7 3m2 [facility] Comment:Estimated glomerular filtration rate calculated using the CKD-EPI refit equation. ANION GAP 12 10 - 20 mmol/L [facility] Blood 10/25/2024 9:40 AM EDT 10/25/2024 9:42 AM EDT Madhuri Max MD LAB BLOOD ORDERABLES Fin al Result [address] [address] * (ABNORMAL) Hemoglobin A1c (09/29/2024 8:09 AM EDT) HEMOGLOBIN A1C 6.2(H) 4.3 - 5.8 % [facility] Blood 09/29/2024 8:09 AM EDT 09/29/2024 8:11 AM EDT Lavelle Alicea DO LAB BLOOD ORDERABLES Final Resul t Performing Organization Address City/[facility]/ZIP Co de Phone Number [address] [address] * HM MAMMOGRAPHY FOR RESULT ENTRY ONLY (05/15/2024 4:25 PM EST) us Haja Provider HEALTH MAINTENANCE Edited Result - Final * HM DEXA SCAN (10/19/2023 2:31 PM EDT) Historical Provider HEALTH MAINTENANCE Edited Result - Final * DIABETES EYE EXAM FOR RESULT ENTRY ONLY (05/13/2023) EYE EXAM see report Historical Provider HEALTH MAINTENANCE Final Result * COLONOSCOPY FOR RESULT ENTRY ONLY (03/10/2021) Historical Provider HEALTH MAINTENANCE Edited Result - Final * Hepatitis C antibody, qualitative (12/08/2019 10:09 AM EDT) HCV NON-REACTIV E NON-REACTI VE [facility] Blood 12/08/2019 10:0 9 AM EDT 12/08/2019 10:13 AM EDT Madhuri Max MD LAB BLOOD ORDERABLES Fin al Result Performing Organization Address City/State/[facility] Co de Phone Number [facility] [address] [place] [address] from Last 3 Months or Most Recently Relevant to Health Maintenance Insurance MEDICARE PART A & B Member Subscriber Plan / Payer (Ef fective 2023-Present) Name:Lotus Damon Member ID:[id number] Relation to Subscriber:Self Name:Lotus Damon Subscriber ID:[id number] Payer ID:[id number] Group ID:Not on file Type:Medicare Address: [employer] [facility] [facility] [place] [address] [employer] [facility] EXT[facility]ION MEDICARE SUPPLEMENT MEDICARE PART A & B [employer] EX[employer]ION MEDICARE SUPPLEMENT [employer] EXTENSION MEDICARE SUPPLEMENT [facility] MEDICARE SUPPLEMENT MEDICARE PART A & B [facility] MEDICARE SUPPLEMENT [employer] MEDICARE SUPPLEMENT MEDICARE PART A & B [facility] EXTENSION MEDICARE SUPPLEMENT MEDICARE PART A & B [facility] EXTENSION MEDICARE SUPPLEMENT MEDICARE PART A & [place] [address] [place] [address] EXTENSION MEDICARE SUPPLEMENT Care Teams Voice Over Artist Relationship Specialty Start Date End Date Nakita Bella MD [address] [place] [address] [email or web address] PCP - General Family Medicine 08/17/24 Freddy Oquendo MD [address] [place] [address] Historical LMR Provider 04/13/17 Anu Millan NP [address] [place] [address] Historical LMR Provider 04/13/17 Altaf Moses MD [address] [place] [address] [place] [address] Ophthalmology 12/16/21 Additional Source Comments The information contained in this document represents components of the legal health record. It is not the complete legal health record.[facility]
--- OUTSIDE RECORDS SUMMARY | 2025-03-20 09:10 | XMS_ITS | Encounter Summary ---
Author Organization [facility] Address [address] [facility] [address] [place] [address] Phone Care Team Providers Care Copy Coordinator Name Role Phone Fredyd Oquendo MD Unavailable Anu Millan NP Unavailable [phone] Altaf Moses MD Unavailable Nakita Bella MD Primary Care Provider Reason for Visit * Reason Comments Medication Refill Encounter Details Date Type Department Care Team (Late st Contact Info) Description 02/04/2025 [facility] [address] [facility] [address] [place] [address] Hailey Decker FNP [address] [facility] [address] [place] [address] [email or web address] Medication Refill Social History Tobacco Use Types Packs/Day Years [...] high school, GED, job training, learning the [place] language, technical skills, or developing parenting skills)? [...] AM EST documented as of this encounter Progress Notes * Gaye Duran MA - 02/05/2025 9:25 AM EDT At least one Rx below has no protocol and needs review. Rx Care Gap Status - Instructions for Clinical Staff (prescriber discretion applies): > Mismatch review guide > N/a - No action needed Visit Info Last visit: 11/29/2024 Nakita Bella MD - Primary Care [facility] > Requested f/u: Not specified Upcoming visit: 03/02/2025 Nakita Bella MD - Primary Care [facility] ACTIONS TAKEN BY Gaye Duran MA - Criteria met. Rx(s) without protocol Renewal is at prescriber discretion. - aripiprazole documented in this encounter Plan of Treatment Upcoming Encounters Date Type Department Care Team (Late st Contact Info) Description 03/26/2025 8:00 AM EDT Office Visit [facility] Rheumatology [address] [place] [address] Madhuri Max MD [address] [place] [address] [address] [place] [address] 04/04/2025 8:30 AM EDT Office Visit [facility] [address] [place] [address] Lavelle Alicea DO [address] [place] [address] 09/04/2025 10:00 AM EDT Office Visit [facility] [address] [facility] [address] [place] [address] Nakita Bella MD [address] [place] [address] [address] [place] [address] documented as of this encounter Visit Diagnoses Not on filedocumented in this encounter Additional Health Concerns Assessment Noted Time PHQ-9 Depression Total Score: 5 03/31/20 24 10:36 AM EDT PHQ-2 Depression Total Score: 2 03/31/20 24 10:36 AM EDT documented as of this encounter Care Teams Copy Coordinator Relationship Specialty Start Date End Date Nakita Bella MD [address] [address] PCP - General Family Medicine 08/17/24 Freddy Oquendo MD [address] [place] [address] Historical LMR Provider 04/13/17 Anu Millan NP [address] [place] [address] Historical LMR Provider 04/13/17 Altaf Moses MD [address] [place] [address] Ophthalmology 12/16/21 documented as of this encounter Additional Source Comments The information contained in this document represents components of the legal health record. It is not the complete legal health record.[facility]
== END ==
LOC: HO.NUCMED 08:16
PROVIDERS: PCP Registered Nurse; Visit Provider Nurse Practitioner Family
DX: Z13.89 Encounter for screening for other disorder (principal)

== ENCOUNTER → 2025-03-28 07:55 | Outpatient (REF) | payer MEDICARE, OTHER, SELFPAY ==
--- OUTSIDE RECORDS SUMMARY | 2025-03-26 08:00 | XMS_ITS | Encounter Summary ---
Author Organization [facility] Address [address] [place] [address] [address] [place] [address] Phone Care Team Providers Care Photo Lab Manager Name Role Phone Freddy Oquendo MD Unavailable Anu Millan NP Unavailable [phone] Altaf Moses MD Unavailable Nakita Bella MD Primary Care Provider Reason for Visit * Reason Comments Follow-up Rheumatoid arthritis involving multiple sites with positive rheumatoid factor, pain all over , hips, and knees Encounter Details Date Type Department Care Team (Latest Contact Info) Description 03/26/2025 8:00 AM EDT Office Visit [facility] [address] [place] [id number] Madhuri Max MD [address] [facility], [address] [place] [address] [email or web address] Rheumatoid arthritis involving multiple sites with positive rheumatoid factor (Primary Dx); 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 [...] AM EST documented as of this encounter Last Filed Vital Signs Vital Sign Reading Time Taken Comments Blood Pressure 120/70 03/26/2025 7:52 AM EDT Pulse 95 03/26/2025 7:52 AM EDT Temperature - - Respiratory Rate - - Oxygen Saturation 99% 03/26/2025 7:52 AM EDT Inhaled Oxygen Concentration - - Weight 71.6 kg (157 lb 12.8 oz) 03/26/2025 7:52 AM EDT Height 154.9 cm (5' 1 ) 03/26/2025 7:52 AM EDT Body Mass Index 29.82 03/26/2025 7:52 AM EDT documented in this encounter Progress Notes * Madhuri Max MD - 03/26/2025 8:00 AM EDT Patient: Lotus Damon : 1960 Date: 03/26/2025 Time: 8:14 AM HPI: Lotus Damon is a 64 y.o.female here for follow-up of her Rheumatoid arthritis involving multiple sites with positive rheumatoid factor [M05.79] long-standing history of fibromyalgia, neck pain. She has anxiety/ depression, insomnia, hypertension, type II diabetes mellitus, kidney stones, history of Paget's disease on her skull and obesity. Since last visit on 11/03/2024 Lotus reports soreness within her L hip and knees that she grades at 7/10 all the time. She has been using Voltaren gel that helps sera after prior warm pack application. There are intermittent episodes of swelling in her knees and ankles and hands but tolerable. Her sleep is not great because she is waking up around 2-3 a.m. because she needs to go to the bathroom and then has a hard time going back to sleep. She has received yearly influenza vaccine in late January 2025 uneventfully. She is not keen on getting COVID-19 booster at this time. She spent couple of weeks visiting her kids and a 25-year-old granddaughter in [place], [place] during the summer and admits that it was very hot and humid at that time. She participates in water aerobics classes 3 times a week and likes them but admits that she has difficulty walking around her neighborhood because of uneven surface. She was found with left renal cyst and is expected to get MRI for further evaluation. AM stiffness does not leave her throughout the day most days. There is severe fatigue though her sleep and appetite remain good. No red, hot joints. No headaches, visual abnormalities, mucosal ulcerations, dysphagia, pleurisy, abdominal pain, melena or hematochezia. . I had a lot of problems with prescription for Rinvoq coverage at [facility] specialty pharmacy-each time there is difficulty and higher co-pay . She was interested in exploring different medication that would not have to be approved/delivered by [facility] specialty. Lately did not experience difficulty in the renewing Rinvoq prescriptions and prefers to continue it since it seems to be controlling her rheumatoid arthritis symptoms No falls, injuries. No interval illnesses. She RSV vaccination in March 2023 uneventfully. She continues daily Arava and Rinvoq without side effects or need to skip any doses. She complains of hair loss since she took methotrexate. Sulfasalazine did not help her. Tylenol arthritis 3 times daily helps a bit. Enbrel has lost its benefit. Intermittent numbing and tingling in the right hand with dropping objects. Splinting helps. She is using Voltaren gel to her hands after warming. She has difficulty holding coffee cup in the morning-she has to use both hands for it. She is using splints for her carpal tunnel at night interchangeably. There is weakness, numbing and tingling in both hands in the morning. There is tendency to constipation and she alternates Colace and MiraLAX to control it. Intermittent sneezing and coughing believed secondary to allergies. She gained a lot of weight when taking Lyrica. Past Medical History: Diagnosis Date Anxiety Arthritis Chronic constipation Chronic pain Diabetes mellitus Fibromyalgia GERD (gastroesophageal reflux disease) Hyperlipidemia Hyperlipidemia Hypertensive disorder Major depressive disorder Paget's disease of bone 05/19/2017 PTSD (post-traumatic stress disorder) Renal calculi Rheumatoid arthritis Past Surgical History: Procedure Laterality Date ANKLE SURGERY Right Dr. Yoder REDUCTION MAMMOPLASTY Breast Reduction SHOULDER SURGERY Right Arthroscopic TOTAL ABDOMINAL HYSTERECTOMY W/ BILATERAL SALPINGOOPHORECTOMY done for history of cysts Medications: Current Outpatient Medications Medication Sig Dispense Refill Last Dispense albuterol 90 mcg/actuation inhaler INHALE 2 PUFFS INTO THE LUNGS EVERY 6 HOURS NEEDED FOR WHEEZE8.5 g 3 Unknown (outside pharmacy) ARIPiprazole (ABILIFY) 5 MG tablet TAKE 1 TABLET (5 MG TOTAL) BY MOUTH DAILY. 90 tablet 3 Unknown (outside pharmacy) atorvastatin (LIPITOR) 40 MG tablet Take 1 tablet (40 mg total) by mouth daily. 90 tablet 3 Unknown(outside pharmacy) bacillus coagulans-inulin 1 billion-250 cell-mg Cap Take by mouth daily. Unknown (patient-reported) budesonide-formoterol 80-4.5 mcg/actuation inhaler INHALE 2 PUFFS INTO LUNGS TWICE A DAY NEEDED FOR SHORTNESS OF BREATH. RINSE MOUTH AFTER EACH USE 10.2 g 5 Unknown (outside pharmacy) buPROPion (WELLBUTRIN XL) 300 MG ER 24 hr tablet TAKE 1 TABLET (300 MG TOTAL) BY MOUTH EVERY MORNING. 90 tablet 3 Unknown (outside pharmacy) calcium carbonate (OS-SHANEL) 1,500 mg (600 mg elemental) tablet Take 600 mg by mouth daily. Unknown (patient-reported) DULoxetine (CYMBALTA) 20 MG capsule TAKE 1 CAPSULE BY MOUTH NIGHTLY TOGETHER WITH 60 MG CAPSULE 90 capsule 1 Unknown (outside pharmacy) DULoxetine (CYMBALTA) 60 MG capsule Take 1 capsule (60 mg total) by mouth daily. 90 capsule 3 Unknown (outside pharmacy) fexofenadine (TOSHIA) 60 MG tablet Take 60 mg by mouth daily as needed. Unknown (patient-reported) FREESTYLE SKY 2 SENSOR kit APPLY 1 SENSOR EVERY 14 (FOURTEEN) DAYS. USE TO CHECK GLUCOSE CONTINUOUSLY THROUGHOUT THE DAY 6 kit 3 Unknown (outside pharmacy) FREESTYLE LITE METER meter kit Use as instructed 1 kit 0 Unknown (outside pharmacy) FREESTYLE LITE Strp strips 1 each by Miscellaneous route every morning. 100 strip 3 Unknown (outside pharmacy) lisinopril (PRINIVIL,ZESTRIL) 5 MG tablet Take 1 tablet (5 mg total) by mouth daily. 90 tablet 3 Unknown (outside pharmacy) LORazepam (ATIVAN) 0.5 MG tablet Take 1 tablet (0.5 mg total) by mouth daily as needed for anxiety.20 tablet 0 Unknown (outside pharmacy) magnesium oxide (MAG-OX) 400 mg (241.3 mg elemental) tablet TAKE 1 TABLET (400 MG TOTAL) BY MOUTH NIGHTLY AT BEDTIME. 90 tablet 3 Unknown (outside pharmacy) multivitamin per tablet 1 tablet daily. Unknown (patient-reported) omeprazole (PRILOSEC) 20 MG capsule Take 20 mg by mouth daily. Unknown (patient-reported) semaglutide (RYBELSUS) 14 mg tablet Take 1 tablet (14 mg total) by mouth daily. 30 tablet 5 Unknown(outside pharmacy) leflunomide (ARAVA) 20 MG tablet Take 1 tablet (20 mg total) by mouth daily. 90 tablet 1 Unknown (outside pharmacy) 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 (RINVOQ) 15 mg ER 24 hr tablet Take 1 tablet (15 mg total) by mouth daily. 90 tablet 1Unknown (outside pharmacy) No current facility-administered medications for this visit. Allergies: Allergies Allergen Reactions Metformin Diarrhea Social History: reports that she has never smoked. She has never been exposed to tobacco smoke. She has never used smokeless tobacco. She reports that she does not currently use alcohol. She reports that she does not use drugs. Social History Social History Narrative Single. Lives alone. Close with children, siblings. 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 Exercise: Water aerobics. Retired in June 2021. . Family History: family history includes Cancer in her father; Dementia (age of onset: 80) in her sister; Diabetes in her brother; Diabetes mellitus in her mother; Hyperlipidemia in her brother; Hypertension in her brother and mother; Liver cancer (age of onset: 61) in her sister; No Known Problems in her daughter and son; Stomach cancer in her father; Stroke in her mother. No interval changes in social and family history. ROS: Complete review of systems performed and negative except as in HPI above. Physical Exam: BP 120/70 (BP Location: Right arm, Patient Position: Sitting, Cuff Size: Medium) Pulse 95 Ht 154.9 cm (5' 1 ) Wt 71.6 kg (157 lb 12.8 oz) LMP (LMP Unknown) SpO2 99% BMI 29.82 kg/m?? A pleasant, middle-aged female in no acute distress . Alert, oriented x3. HEENT: NC, AT, normal EEN exam Neck supple, symmetric, no lymphadenopathy or thyromegaly Cor: regular, no murmur or rub Lungs: clear to auscultation bilaterally Abd: soft, nontender, nl bs, no organomegaly or masses Ext: no edema, cyanosis or clubbing MSK: Pulling sensation and soreness on testing shoulders against resistance in abduction+ extensionand flexion. Pulling sensation on the left paraspinal cervical muscle. Relatively normal shoulders, elbows, wrists, MCP, PIP and DIP exam. R 1st - 3rd MCP mild thickening and tenderness. R 2nd DIP mild ulnar deviation. L 5th PIP flexion contracture and radial deviation. Mildly positive Tinel sign bilaterally. Medication Coordinator strength 4.5/5 bilaterally. No tenderness along the spinal column. No step-off or radiculopathy. Decreased rotation in cervicalspine particularly toward left. Normal hips, knees, ankles, subtalar joints, MTP, IP exam except soreness and limitation of internal rotation in both hips. Bilateral knee crepitus without effusion, popliteal cysts or signs of instability, L>R. Tenderness on squeezing MTP joints bilaterally. Diffuse tenderness throughout the body in all 16/18 fibromyalgia tender points. Neuro: no focal deficits Skin: clear Labs: No visits with results within 6 Week(s) from this visit. Latest known visit with results is: Hospital Outpatient Visit on 10/25/2024 Component Date Value Ref Range Status WBC 10/25/2024 5.43 4.00 - 11.00 K/uL Final RBC 10/25/2024 4.13 4.00 - 5.20 M/uL Final HGB 10/25/2024 12.2 12.0 - 16.0 g/dL Final HCT 10/25/2024 38.7 36.0 - 46.0 % Final PLT 10/25/2024 218 150 - 450 K/uL Final MCV 10/25/2024 93.7 80.0 - 100.0 fL Final MCH 10/25/2024 29.5 27.0 - 31.0 pg Final MCHC 10/25/2024 31.5 (L) 32.0 - 36.0 g/dL Final RDW 10/25/2024 12.1 11.5 - 14.5 % Final MPV 10/25/2024 12.6 (H) 8.4 - 12.0 fL Final NRBC 10/25/2024 0.00 0.00 /100 WBCs Final ABSOLUTE NRBC 10/25/2024 0.00 0.00 K/uL Final DIFF METHOD 10/25/2024 Auto Final NEUTS 10/25/2024 71.1 48.0 - 76.0 % Final LYMPHS 10/25/2024 21.4 18.0 - 41.0 % Final MONOS 10/25/2024 6.3 4.0 - 11.0 % Final EOS 10/25/2024 0.6 0.0 - 5.0 % Final BASOS 10/25/2024 0.4 0.0 - 1.5 % Final Granulocytes, immature (%) 10/25/2024 0.2 0.0 - 0.9 % Final ABSOLUTE NEUTS 10/25/2024 3.87 1.92 - 7.60 K/uL Final ABSOLUTE LYMPHS 10/25/2024 1.16 0.72 - 4.10 K/uL Final ABSOLUTE MONOS 10/25/2024 0.34 0.16 - 1.10 K/uL Final ABSOLUTE EOS 10/25/2024 0.03 0.00 - 0.50 K/uL Final ABSOLUTE BASOS 10/25/2024 0.02 0.00 - 0.15 K/uL Final Granulocytes, immature 10/25/2024 0.01 0.00 - 0.09 K/uL Final ESR 10/25/2024 4 0 - 30 mm/h Final C REACTIVE PROTEIN 10/25/2024 <3.0 0.0 - 4.0 mg/L Final SODIUM 10/25/2024 143 133 - 146 mmol/L Final POTASSIUM 10/25/2024 4.8 3.3 - 5.1 mmol/L Final CHLORIDE 10/25/2024 107 96 - 108 mmol/L Final CO2 10/25/2024 29 21 - 35 mmol/L Final BUN 10/25/2024 18 6 - 19 mg/dL Final CREATININE 10/25/2024 0.80 0.5 - 1.5 mg/dL Final GLUCOSE 10/25/2024 130 (H) 70 - 99 mg/dL Final ALBUMIN 10/25/2024 4.4 3.9 - 4.8 g/dL Final TOTAL PROTEIN 10/25/2024 7.2 6.5 - 8.0 g/dL Final CALCIUM 10/25/2024 9.8 8.4 - 10.3 mg/dL Final ALKALINE PHOSPHATASE 10/25/2024 102 39 - 117 U/L Final TOTAL BILIRUBIN 10/25/2024 0.3 0.0 - 1.2 mg/dL Final AST 10/25/2024 23 0 - 37 U/L Final ALT 10/25/2024 14 0 - 40 U/L Final GLOBULIN 10/25/2024 2.8 1 - 4.8 g/dL Final EGFR 10/25/2024 81 >59 mL/min/1.73m2 Final Estimated glomerular filtration rate calculated using the CKD-EPI refit equation. ANION GAP 10/25/2024 12 10 - 20 mmol/L Final I have reviewed with her report of renal ultrasound from at [facility]: No hydronephrosis or perinephric collections are identified. There is a hypoechoic lesion identified within the left kidney, possibly representing a complex cyst. Consider further characterization with MRI. Unremarkable assessment of the bladder. (See details in imaging section of [facility]) I have re-reviewed with her on a computer screen labs from 08/24/2023, 12/14/2023 and 03/17/2024 [facility]-see details in labs section of [facility] that returned normal except for: Nonfasting glucose 129, 134, 209 (70-99) respectively-see details in labs section of [facility]. I have reviewed with her BMD from 10/19/2023 at [facility]: L1-4 T- score 0.8= normal, Left total hip T-score -0.8= normal, Left femoral neck T-score -1.3= osteopenia-see details in media section of [facility]). BMD from 10/17/2021 at [facility]: Osteopenia based on the lowest T score value of -1.2 in the femoral neck. Major osteoporotic fracture risk (spine, forearm, hip or shoulder) 9.4%, hip fracture 0.8%. (See details in media section of [facility]) Bilateral knee x-rays from 10/16/2021 at [facility] revealed: Mild osteoarthrosis at the medial compartment of both knees-see details in media section of [facility]. I have reviewed with patient skull x-ray report from 02/24/2020 at [facility]: Normal appearance of the skull (see details in media section of [facility]). Assessment and Plan: 1. Rheumatoid arthritis involving multiple sites with positive rheumatoid factor (Primary) Assessment & Plan: Clinically & lab melchor stable. Carefully continue current daily Rinvoq 15 mg along with Arava 20 mg daily Avoid falls, injuries, overuse and sick contacts. Joint protection, energy conservation techniques. Get labs monitoring safety and efficacy prior to next visit-standing orders in [facility]. Gentle, regular exercise after warm [...] review and writing her questions for discussion. Orders: - Quantiferon-TB Gold - leflunomide (ARAVA) 20 MG tablet Dispense: 90 tablet; Refill: 1 - 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 (RINVOQ) 15 mg ER 24 hr tablet Dispense: 90 tablet; Refill: 1 2. Paget's disease of bone Assessment & Plan: She reports involvement of calvarium for which she received 2 Reclast infusions in the past. Repeated alk phos returned stable as did skull x-rays from [facility] 02/24/2020 (whereshe had previous images) Periodic monitoring indicated. 3. [facility] current use of 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 Assessment & Plan: Hold Rinvoq whenever feeling sick, running fever or taking antibiotics. Complete entire antibiotic course and wait at least 48 hours after the last dose of antibiotic to make sure that infection does not recur before restarting Rinvoq. Monitor for unusual abdominal pain, nausea, diarrhea, melena or hematochezia. Return for monitoring labs at least every 3 months-standing orders in [facility]. Make sure to inform any new MD, PA, PERSONNEL ARBITRATOR about chronic immunosuppression with Rinvoq and Arava, particularly in emergency situation. Orders: - Quantiferon-TB Gold 4. Fibromyalgia Assessment & Plan: Due to severe fibromyalgia flare for over [...] from formal in person or remote psychotherapy. 5. Osteopenia of left hip Assessment & Plan: Continue proper calcium and vitamin D supplementation. Fall and fracture prevention strategies and daily weightbearing exercises. Interval bone density from 10/19/2023 at [facility] returned reassuring that she does notrequire bone preserving therapy at this time. 6. Gastroesophageal reflux disease without esophagitis Assessment & Plan: Avoid late, large, spicy meals. Keep headboard elevated at 45?? angle for nighttime. Carefully continue omeprazole 20 mg daily as prescribed. 7. Type 2 diabetes mellitus with right eye affected by mild nonproliferative retinopathy without macular edema, without long-term current use of insulin Assessment & Plan: Continue close follow-up with her diabetic management team exactly as prescribed. 8. On statin therapy - CPK (creatine kinase) I have maintained a long-term, longitudinal relationship with this patient, overseeing care of chronic conditions, including polyarticular rheumatoid arthritis, concomitant Paget's disease of the bone, fibromyalgia, left hip osteopenia, carpal tunnel syndrome of the right wrist, type 2 diabetes with right eye affected by mild nonproliferative retinopathy without macular edema and no need to use insulin, monitoring therapy with conventional disease modifying antirheumatic medication taken daily by mouth Arava (leflunomide in addition to new or Erik inhibitor medication Rinvoq (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). This care relationship has significantly influenced my decision-making and treatment plans during today's encounter. Follow-up: 4 mths documented in this encounter Miscellaneous Notes * Assessment & Plan Note - Madhuri Max MD - 03/26/2025 7:55 AM EDT Associated Problem(s): Type 2 diabetes mellitus with right eye affected by mild nonproliferative retinopathy without macular edema, without long-term current use of insulin Continue close follow-up with her diabetic management team exactly as prescribed. * Assessment & Plan Note - Madhuri Max MD - 03/26/2025 7:55 AM EDT Associated Problem(s): Gastroesophageal reflux disease without esophagitis Avoid late, large, spicy meals. Keep headboard elevated at 45?? angle for nighttime. Carefully continue omeprazole 20 mg daily as prescribed. * Assessment & Plan Note - Madhuri Max MD - 03/26/2025 7:55 AM EDT Associated Problem(s): Osteopenia of left hip Continue proper calcium and vitamin D supplementation. Fall and fracture prevention strategies and daily weightbearing exercises. Interval bone density from 10/19/2023 at [facility] returned reassuring that she does notrequire bone preserving therapy at this time. * Assessment & Plan Note - Madhuri Max MD - 03/26/2025 7:54 AM EDT Associated Problem(s): Fibromyalgia Due to severe fibromyalgia flare for over [...] from formal in person or remote psychotherapy. * Assessment & Plan Note - Madhuri Max MD - 03/26/2025 7:54 AM EDT Associated Problem(s): MCC current use of 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 Hold Rinvoq whenever feeling sick, running fever or taking antibiotics. Complete entire antibiotic course and wait at least 48 hours after the last dose of antibiotic to make sure that infection does not recur before restarting Rinvoq. Monitor for unusual abdominal pain, nausea, diarrhea, melena or hematochezia. Return for monitoring labs at least every 3 months-standing orders in [facility]. Make sure to inform any new MD, PA, PERSONNEL ARBITRATOR about chronic immunosuppression with Rinvoq and Arava, particularly in emergency situation. * Assessment & Plan Note - Madhuri Max MD - 03/26/2025 7:53 AM EDT Associated Problem(s): Paget's disease of bone She reports involvement of calvarium for which she received 2 Reclast infusions in the past. Repeated alk phos returned stable as did skull x-rays from [facility] 02/24/2020 (whereshe had previous images) Periodic monitoring indicated. * Assessment & Plan Note - Madhuri Max MD - 03/26/2025 7:53 AM EDT Associated Problem(s): Rheumatoid arthritis involving multiple sites with positive rheumatoid factor Clinically & lab melchor stable. Carefully continue current daily Rinvoq 15 mg along with Arava 20 mg daily Avoid falls, injuries, overuse and sick contacts. Joint protection, energy conservation techniques. Get labs monitoring safety and efficacy prior to next visit-standing orders in [facility]. Gentle, regular exercise after warm [...] review and writing her questions for discussion. documented in this encounter Plan of Treatment Upcoming Encounters Date Type Department Care Team (Late st Contact Info) Description 07/30/2025 8:30 AM EST Office Visit [facility] [address] [place] [address] [place] [address] Lavelle Alicea DO [address] [place] [id number] 08/01/2025 8:00 AM EST Office Visit [facility] [address] [place] [address] Madhuri Max MD [address] [place] [address], [address] [place] [address] 09/04/2025 10:00 AM EDT Office Visit [facility] [address] [facility] [address] [place] [address] Nakita Bella MD [address] [facility] 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 Expected: 03/26/2025, Expires: 03/26/2026 documented as of this encounter Results * CPK (creatine kinase) (03/26/2025 8:20 AM EDT) CREATINE KINASE 152 21 - 215 U/L [facility] Blood 03/26/2025 8:20 AM EDT 03/26/2025 8:27 AM EDT us Madhuri Max MD LAB BLOOD ORDERABLES Fin al Result [facility] [address] [place] [address] documented in this encounter Visit Diagnoses Diagnosis Rheumatoid arthritis involving multiple sites with positive rheumatoid factor- Primary Paget's disease of bone 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 Fibromyalgia Unspecified myalgia and myositis Osteopenia of left hip Gastroesophageal reflux disease without esophagitis Esophageal reflux Type 2 diabetes mellitus with right eye affected by mild nonproliferative retinopathy without macular edema, without long-term current use of insulin On statin therapy documented in this encounter Additional Health Concerns Assessment Noted Time PHQ-9 Depression Total Score: 5 03/31/20 24 10:36 AM EDT PHQ-2 Depression Total Score: 2 03/31/20 24 10:36 AM EDT documented as of this encounter Care Teams Photo Lab Manager Relationship Specialty Start Date End Date Nakita Bella MD [address] [facility] [address] [place] [address] [email or web address] PCP - General Family Medicine 08/17/24 Freddy Oquendo MD [address] [place] [address] [email or web address] Historical LMR Provider 04/13/17 Anu Millan NP [address] [place] [address] [email or web address] Historical LMR Provider 04/13/17 Altaf Moses MD [address] [place] [address] [address] [place], [place] [id number] Ophthalmology 12/16/21 documented as of this encounter Additional Source Comments The information contained in this document represents components of the legal health record. It is not the complete legal health record.[facility]
--- OUTSIDE RECORDS SUMMARY | 2025-03-26 08:16 | XMS_ITS | Encounter Summary ---
Author Organization [facility] Address [address] [facility] [address] [place] [address] Phone Care Team Providers Care Manufacturing Clerk Name Role Phone Freddy Oquendo MD Unavailable Anu Millan NP Unavailable [phone] Altaf Moses MD Unavailable [phone] Nakita Bella MD Primary Care Provider Encounter Details Date Type Department Care Team (Latest Contact Info) Description 03/26/2025 8:16 AM EDT - 03/26/2025 11:59 PM EDT Hospital Encounter [facility] [address] [place] [address] Madhuri Max MD [address] [facility], [address] [place] [address] [email or web address] Discharge Disposition: Home or Self Care Social History Tobacco Use Types Packs/Day Years [...] high school, GED, job training, learning the Yakut language, technical skills, or developing parenting skills)? [...] AM EST documented as of this encounter Medications at Time of Discharge albuterol 90 mcg/actuation inhalerIndications:Mi ld persistent asthma without complication INHALE 2 PUFFS INTO THE LUNGS EVERY 6 HOURS NEEDED FOR WHEEZE 8.5 g 3 4 ARIPiprazole (ABILIFY) 5 MG tablet TAKE 1 TABLET (5 MG TOTAL) BY MOUTH DAILY. 90 tablet 3 5 atorvastatin (LIPITOR) 40 MG tabletIndications:Mix ed hyperlipidemia Take 1 tablet (40 mg total) by mouth daily. 90 tablet 3 4 bacillus coagulans-inulin 1 billion-250 cell-mg Cap Take by mouth daily. budesonide-formoterol 80-4.5 mcg/actuation inhaler INHALE 2 PUFFS INTO LUNGS TWICE A DAY NEEDED FOR SHORTNESS OF BREATH. RINSE MOUTH AFTER EACH USE 10.2 g 5 5 buPROPion (WELLBUTRIN XL) 300 MG ER 24 hr tablet TAKE 1 TABLET (300 MG TOTAL) BY MOUTH EVERY MORNING. 90 tablet 3 5 calcium carbonate (OS-SHANEL) 1,500 mg (600 mg elemental) tablet Take 600 mg by mouth daily. DULoxetine (CYMBALTA) 20 MG capsuleIndications:Fi bromyalgia TAKE 1 CAPSULE BY MOUTH NIGHTLY TOGETHER WITH 60 MG CAPSULE 90 capsule 1 5 DULoxetine (CYMBALTA) 60 MG capsuleIndications:An xiety,Depression Take 1 capsule (60 mg total) by mouth daily. 90 capsule 3 4 fexofenadine (TOSHIA) 60 MG tablet Take 60 mg by mouth daily as needed. FREESTYLE SKY 2 SENSOR kitIndications:Type 2 diabetes mellitus with right eye affected by mild nonproliferative retinopathy without macular edema, without long-term current use of insulin APPLY 1 SENSOR EVERY 14 (FOURTEEN) DAYS. USE TO CHECK GLUCOSE CONTINUOUSLY THROUGHOUT THE DAY 6 kit 3 5 FREESTYLE LITE METER meter kitIndications:Type 2 diabetes mellitus with right eye affected by mild nonproliferative retinopathy without macular edema, without long-term current use of insulin Use as instructed 1 kit 4 FREESTYLE LITE Strp stripsIndications:Typ e 2 diabetes mellitus with right eye affected by mild nonproliferative retinopathy without macular edema, without long-term current use of insulin 1 each by Miscellaneous route every morning. 100 strip 3 4 leflunomide (ARAVA) 20 MG tabletIndications:Rhe umatoid arthritis involving multiple sites with positive rheumatoid factor Take 1 tablet (20 mg total) by mouth daily. 90 tablet 1 5 lisinopril (PRINIVIL,ZESTRIL) 5 MG tabletIndications:Ess ential hypertension Take 1 tablet (5 mg total) by mouth daily. 90 tablet 3 4 LORazepam (ATIVAN) 0.5 MG tablet Take 1 tablet (0.5 mg total) by mouth daily as needed for anxiety. 20 tablet 5 magnesium oxide (MAG-OX) 400 mg (241.3 mg elemental) tablet TAKE 1 TABLET (400 MG TOTAL) BY MOUTH NIGHTLY AT BEDTIME. 90 tablet 3 5 multivitamin per tablet 1 tablet daily. omeprazole (PRILOSEC) 20 MG capsule Take 20 mg by mouth daily. 1 semaglutide (RYBELSUS) 14 mg tabletIndications:Typ e 2 diabetes mellitus with right eye affected by mild nonproliferative retinopathy without macular edema, without long-term current use of insulin Take 1 tablet (14 mg total) by mouth daily. 30 tablet 5 5 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 (RINVOQ) 15 mg ER 24 hr tabletIndications:Rhe umatoid arthritis involving multiple sites with positive rheumatoid factor Take 1 tablet (15 mg total) by mouth daily. 90 tablet 1 5 documented as of this encounter Plan of Treatment Upcoming Encounters Date Type Department Care Team (Late st Contact Info) Description 07/30/2025 8:30 AM EST Office Visit [facility] [address] [place] [address] [place] [address] Lavelle Alicea DO 22 [place] [address] 08/01/2025 8:00 AM EST Office Visit [facility] [address] [place] [address] Madhuri Max MD [address] [facility], [address] [place] [address] 09/04/2025 10:00 AM EDT Office Visit [facility] [address] [facility] [address] [place] [address] Nakita Bella MD [address] [facility] 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 As Needed for 1 Occurrences starting 03/26/2025 until 03/26/2025 documented as of this encounter Procedures Procedure Name Priority Date/Time Associated Diagnosis Comments COMPREHENSIVE METABOLIC PANEL Routine 03/26/2025 8:20 AM EDT Rheumatoid arthritis involving multiple sites with positive rheumatoid factor Paget's disease of bone MCC current use of 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 Encounter for monitoring Arava therapy SEDIMENTATION RATE (ESR) Routine 03/26/2025 8:20 AM EDT Rheumatoid arthritis involving multiple sites with positive rheumatoid factor Paget's disease of bone MCC current use of 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 Encounter for monitoring Arava therapy CBC AND DIFFERENTIAL Routine 03/26/2025 8:20 AM EDT Rheumatoid arthritis involving multiple sites with positive rheumatoid factor Paget's disease of bone 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 Encounter for monitoring Arava therapy C-REACTIVE PROTEIN Routine 03/26/2025 8: 20 AM EDT Rheumatoid arthritis involving multiple sites with positive rheumatoid factor Paget's disease of bone MCC current use of 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 Encounter for monitoring Arava therapy CPK (CREATINE KINASE) Routine 03/26/2025 8:20 AM EDT On statin therapy documented in this encounter Results * CPK (creatine kinase) (03/26/2025 8:20 AM EDT) CREATINE KINASE 152 21 - 215 U/L [facility] Blood 03/26/2025 8:20 AM EDT 03/26/2025 8:27 AM EDT us Madhuri Max MD LAB BLOOD ORDERABLES Fin al Result [address] [address] * (ABNORMAL) Comprehensive metabolic panel (03/26/2025 8:20 AM EDT) SODIUM 140 133 - 146 mmol/L [facility] POTASSIUM 4.8 3.3 - 5.1 mmol/L [facility] CHLORIDE 103 96 - 108 mmol/L [facility] CO2 29 21 - 35 mmol/L [facility] BUN 18 6 - 19 mg/dL [facility] CREATININE 0.80 0.5 - 1.5 mg/dL [facility] GLUCOSE 159(H) 70 - 99 mg/dL [facility] ALBUMIN 4.3 3.9 - 4.8 g/dL [facility] TOTAL PROTEIN 7.3 6.5 - 8.0 g/dL [facility] CALCIUM 9.4 8.4 - 10.3 mg/dL [facility] ALKALINE PHOSPHATASE 95 39 - 117 U/L [facility] TOTAL BILIRUBIN 0.3 0.0 - 1.2 mg/dL [facility] AST 22 0 - 37 U/L [facility] ALT 17 0 - 40 U/L [facility] GLOBULIN 3.0 1 - 4.8 g/dL [facility] EGFR 81 >59 mL/min/1.7 3m2 [facility] Comment:Estimated glomerular filtration rate calculated using the CKD-EPI refit equation. ANION GAP 13 10 - 20 mmol/L [facility] Blood 03/26/2025 8:20 AM EDT 03/26/2025 8:27 AM EDT us Madhuri Max MD LAB BLOOD ORDERABLES Fin al Result Performing Organization Address City/[facility]/ZIP Co de Phone Number [address] [address] * C-Reactive Protein (03/26/2025 8:20 AM EDT) C REACTIVE PROTEIN <3.0 0.0 - 4.0 mg/L [facility] Blood 03/26/2025 8:20 AM EDT 03/26/2025 8:27 AM EDT us Madhuri Max MD LAB BLOOD ORDERABLES Fin al Result Performing Organization Address [facility] Co de Phone Number [address] [address] * Sedimentation rate (ESR) (03/26/2025 8:20 AM EDT) ESR 7 0 - 30 mm/h [facility] Blood 03/26/2025 8:20 AM EDT 03/26/2025 8:27 AM EDT us Madhuri Max MD LAB BLOOD ORDERABLES Fin al Result Performing Organization Address [facility] Co de Phone Number [address] [address] * CBC and differential (03/26/2025 8:20 AM EDT) WBC 4.87 4.00 - 11.00 K/uL [facility] RBC 4.03 4.00 - 5.20 M/uL [facility] HGB 12.3 12.0 - 16.0 g/dL [facility] HCT 38.3 36.0 - 46.0 % [facility] PLT 236 150 - 450 K/uL [facility] MCV 95.0 80.0 - 100.0 fL [facility] MCH 30.5 27.0 - 31.0 pg [facility] MCHC 32.1 32.0 - 36.0 g/dL [facility] RDW 11.9 11.5 - 14.5 % [facility] MPV 11.4 8.4 - 12.0 fL [facility] NRBC 0.00 0.00 /100 WBCs [facility] ABSOLUTE NRBC 0.00 0.00 K/uL [facility] DIFF METHOD Auto [facility] NEUTS 62.7 48.0 - 76.0 % [facility] LYMPHS 28.7 18.0 - 41.0 % [facility] MONOS 7.0 4.0 - 11.0 % [facility] EOS 0.6 0.0 - 5.0 % [facility] BASOS 0.6 0.0 - 1.5 % [facility] Granulocytes, immature (%) 0.4 0.0 - 0.9 % [facility] ABSOLUTE NEUTS 3.05 1.92 - 7.60 K/uL [facility] ABSOLUTE LYMPHS 1.40 0.72 - 4.10 K/uL [facility] ABSOLUTE MONOS 0.34 0.16 - 1.10 K/uL [facility] ABSOLUTE EOS 0.03 0.00 - 0.50 K/uL [facility] ABSOLUTE BASOS 0.03 0.00 - 0.15 K/uL [facility] Granulocytes, immature 0.02 0.00 - 0.09 K/uL [facility] Blood 03/26/2025 8:20 AM EDT 03/26/2025 8:27 AM EDT us Madhuri Max MD LAB BLOOD ORDERABLES Fin al Result [facility] [address] [place] [address] documented in this encounter Visit Diagnoses Diagnosis Rheumatoid arthritis involving multiple sites with positive rheumatoid factor Paget's disease of bone 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 Encounter for monitoring Arava therapy On statin therapy documented in this encounter Additional Health Concerns Assessment Noted Time PHQ-9 Depression Total Score: 5 03/31/20 10:36 AM EDT PHQ-2 Depression Total Score: 2 03/31/20 10:36 AM EDT documented as of this encounter Care Teams Manufacturing Clerk Relationship Specialty Start Date End Date Nakita Bella MD [address] [address] PCP - General Family Medicine 08/17/24 Freddy Oquendo MD [address] [place] [address] Historical LMR Provider 04/13/17 Anu Millan NP [address] [place] [address] Historical LMR Provider 04/13/17 Altaf Moses MD [address] [place] [address] Ophthalmology 12/16/21 documented as of this encounter Additional Source Comments The information contained in this document represents components of the legal health record. It is not the complete legal health record.[facility]
--- NOTE | ~2025-03-28 | NM_ITS ---
EXAMINATION: AL RADIONUCLIDE SOLID FOOD GASTRIC EMPTYING 4-HOUR STUDY CLINICAL INFORMATION: R68.81 - Early satiety COMPARISON: There are no prior studies available for comparison. TECHNIQUE: A standard meal consisting of 4 oz of Egg Beaters brand tagged with 0.93 mCi Tc-99m Sulfur Colloid, 6 oz water and 2 slices of toast with jelly was administered orally to the patient. Images were obtained using a dual head gamma camera in the anterior and posterior projections over of the stomach immediately post ingestion and at hourly intervals up to 4 hours post ingestion. The anterior and posterior counts at each time interval were averaged using the geometric mean and expressed as percentage of the immediate post ingestion counts. FINDINGS: There is visualization of activity in the stomach immediately post ingestion. As the study progresses, there is clearance of activity from the stomach and visualization of progressively increasing small bowel activity. By the end of the study, there is almost no retention noted in the stomach. Retention in the stomach at each time interval was: 1 hour 81% (normal 37%-90%) 2 hours 34% (normal 30%-60%) 3 hours 7% AL/AL gastric emptying study IMPRESSION: Normal 4-hour solid food gastric emptying study. For solid meal, rapid gastric emptying is less than 30% at 60 minutes. Delayed gastric emptying criteria is more than 60% remaining at 120 minutes or more than 10% at 240 minutes. The 4-hour value is the best discriminator of a normal or abnormal result). Gastric emptying study grading per JNMT Consensus Recommendations in 2008 (https://tech.snmjournals.org/content/36/1/44) Grade 1 (mild retention): 11-20% at 4h Grade 2 (moderate retention): 21-35% at 4h Grade 3 (severe retention): 36-50% at 4h Grade 4 (very severe retention): >50% retention at 4h Electronically signed by: Edmond Avery MD 03/28/2025 11:45 AM EDT
--- OUTSIDE RECORDS SUMMARY | 2025-03-28 07:59 | XMS_ITS | Encounter Summary ---
Author Organization [facility] Address [address] [address] [place] [address] Phone Care Team Providers Care Payroll And Benefits Manager Name Role Phone Freddy Oquendo MD Unavailable [phone] Anu Millan NP Unavailable [phone] Altaf Moses MD Unavailable Nakita Bella MD Primary Care Provider Encounter Details Date Type Department Care Team (Late st Contact Info) Description 10/18/2024 Telephone [facility] [address] [place] [address] Nakita Bella MD [address] [facility] [address] [place] [address] [email or web address] Social History Tobacco Use Types Packs/Day Years [...] high school, GED, job training, learning the [place]guill[place] language, technical skills, or developing parenting skills)? [...] 8:30 AM EST Office Visit [facility] [address] [place] [address] Lavelle Alicea DO 22 [place] [address] 08/01/2025 8:00 AM EST Office Visit [facility] Rhe[facility] [address] [place] [address] Madhuri Max MD [address] [facility], [address] [place] [address] 09/04/2025 10:00 AM EDT Office Visit [facility] [address] [facility] [address] [place] [address] Nakita Bella MD [address] [facility] [address] [place] [address] documented as of this encounter Visit Diagnoses Not on filedocumented in this encounter Additional Health Concerns Assessment Noted Time PHQ-9 Depression Total Score: 5 03/31/20 24 10:36 AM EDT PHQ-2 Depression Total Score: 2 03/31/20 24 10:36 AM EDT documented as of this encounter Care Teams Payroll And Benefits Manager Relationship Specialty Start Date End Date Nakita Bella MD [address] [facility] [address] [place] [address] PCP - General Family Medicine 08/17/24 Freddy Oquendo MD [address] [place] [address] Historical LMR Provider 04/13/17 Anu Millan NP [address] [place] [address] [email or web address] Historical LMR Provider 04/13/17 Altaf Moses MD [address] [place] [address] [place] [address] Ophthalmology 12/16/21 documented as of this encounter Additional Source Comments The information contained in this document represents components of the legal health record. It is not the complete legal health record.[facility]
--- OUTSIDE RECORDS SUMMARY | 2025-03-28 08:00 | XMS_ITS | Encounter Summary ---
Author Organization [facility] Address [address] [place] [address] Phone Care Team Providers Care Branch Chief Name Role Phone Freddy Oquendo MD Unavailable [phone] Anu Millan NP Unavailable [phone] Altaf Moses MD Unavailable Nakita Bella MD Primary Care Provider Reason for Visit * Reason Comments Med Change Request Encounter Details Date Type Department Care Team (Late st Contact Info) Description 03/27/2025 Refill [facility] [address] [place] [address] Lavelle Alicea DO [address] [place] [address] [email or web address] Med Change Request Social History Tobacco Use Types Packs/Day Years [...] high school, GED, job training, learning the Arabic language, technical skills, or developing parenting skills)? [...] as of this encounter Progress Notes * Fani Conway [place] - 03/28/2025 7:11 AM EDT Please print last office note, have provider sign, date and fax to Medicare Part B fax # [phone] documented in this encounter Plan of Treatment Upcoming Encounters Date Type Department Care Team (Late st Contact Info) Description 07/30/2025 8:30 AM EST Office Visit [facility] [address] [place] [address] Lavelle Alicea DO 22 [place] [address] 08/01/2025 8:00 AM EST Office Visit [facility] Rheumatology [address] [place] [address] Madhuri Max MD [address] [facility], [address] [place] [address] 09/04/2025 10:00 AM EDT Office Visit [facility] [address] [facility] [address] [place] [address] Nakita Bella MD [address] [facility] [address] [place] [address] documented as of this encounter Visit Diagnoses Diagnosis Type 2 diabetes mellitus with right eye affected by mild nonproliferative retinopathy without macular edema, without long-term current use of insulin documented in this encounter Additional Health Concerns Assessment Noted Time PHQ-9 Depression Total Score: 5 03/31/20 24 10:36 AM EDT PHQ-2 Depression Total Score: 2 03/31/20 24 10:36 AM EDT documented as of this encounter Care Teams Branch Chief Relationship Specialty Start Date End Date Nakita Bella MD [address] [facility] [address] [place] [address] [email or web address] PCP - General Family Medicine 08/17/24 Freddy Oquendo MD 40 [place] [address] Historical LMR Provider 04/13/17 Anu Millan NP [address] [place] [address] Historical LMR Provider 04/13/17 Altaf Moses MD [address] [place] [address] [address] [place] [address] Ophthalmology 12/16/21 documented as of this encounter Additional Source Comments The information contained in this document represents components of the legal health record. It is not the complete legal health record.[facility]
--- OUTSIDE RECORDS SUMMARY | 2025-03-28 08:00 | XMS_ITS | Encounter Summary ---
Author Organization [facility] Address [address] [place] [address] [place] [address] Phone Care Team Providers Care Bioinformatics Assistant Name Role Phone Freddy Oquendo MD Unavailable [phone] Anu Millan NP Unavailable [phone] Altaf Moses MD Unavailable [phone] Nakita Bella MD Primary Care Provider Encounter Details Date Type Department Care Team (Late st Contact Info) Description 10/30/2024 Procedure [facility], [address] [address] Social History Tobacco Use Types Packs/Day Years [...] high school, GED, job training, learning the Sinhala language, technical skills, or developing parenting skills)? [...] AM EST Office Visit [facility] [address] [place] [id number] Lavelle Alicea DO 22 [place] [address] 08/01/2025 8:00 AM EST Office Visit [facility] [address] [place] [address] Madhuri Max MD [address] [facility], [address] [place] [address] 09/04/2025 10:00 AM EDT Office Visit [facility] [address] [facility] [address] [place] [address] Nakita Bella MD [address] [address] documented as of this encounter Visit Diagnoses Not on filedocumented in this encounter Additional Health Concerns Assessment Noted Time PHQ-9 Depression Total Score: 5 03/31/20 24 10:36 AM EDT PHQ-2 Depression Total Score: 2 03/31/20 24 10:36 AM EDT documented as of this encounter Care Teams Bioinformatics Assistant Relationship Specialty Start Date End Date Nakita Bella MD [address] [address] PCP - General Family Medicine 08/17/24 Freddy Oquendo MD [address] [place] [address] Historical LMR Provider 04/13/17 Anu Millan NP [address] [place] [address] [email or web address] Historical LMR Provider 04/13/17 Altaf Moses MD [address] [place] [address] [place] [address] Ophthalmology 12/16/21 documented as of this encounter Additional Source Comments The information contained in this document represents components of the legal health record. It is not the complete legal health record.[facility]
--- OUTSIDE RECORDS SUMMARY | 2025-03-28 08:00 | XMS_ITS | Clinical Summary ---
Author Organization [facility] Address [address] [place] [id number] Phone Care Team Providers Care Collar Sewer Name Role Phone Freddy Oquendo MD Unavailable Anu Millan NP Unavailable [phone] Altaf Moses MD Unavailable Nakita Bella [...] MORNING. 90 tablet 3 10/31/19 25 Active budesonide-formoter ol 80-4.5 mcg/actuation inhaler [...] for anxiety. 20 tablet 02/15/20 25 Active leflunomide (ARAVA) 20 MG tabletIndications:R heumatoid arthritis involving multiple sites with positive rheumatoid factor Take 1 tablet (20 mg total) by mouth daily. 90 tablet 1 03/26/20 25 Active 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 (RINVOQ) 15 mg ER 24 hr tabletIndications:R heumatoid arthritis involving multiple sites with positive rheumatoid factor Take 1 tablet (15 mg total) by mouth daily. 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 100 each 3 03/28/20 24 2024 Disconti nued(No longer taking) leflunomide (ARAVA) 20 MG tabletIndications:R heumatoid arthritis involving multiple sites with positive rheumatoid factor Take 1 tablet (20 mg total) by mouth daily. 90 tablet 1 11/04/19 25 2024 Disconti nued(Reo rder) 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 (RINVOQ) 15 mg ER 24 hr tabletIndications:R heumatoid arthritis involving multiple sites with positive rheumatoid factor Take 1 tablet (15 mg total) by mouth daily. 90 tablet 1 11/04/19 25 2024 Disconti nued(Reo rder) Active Problems Problem Noted Date Diagnosed Date On statin therapy 03/26/2025 Abnormal abdominal MRI 03/02/2025 Assessment & Plan [...] be necessary if the IPMN enlarges significantly. half-way current use of 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 07/07/2024 Assessment & Plan (03/26/2025 7:54 AM EDT): Hold Rinvoq whenever feeling sick, running fever or taking antibiotics. Complete entire antibiotic course and wait at least 48 hours after the last dose of antibiotic to make sure that infection does not recur before restarting Rinvoq. Monitor for unusual abdominal pain, nausea, diarrhea, melena or hematochezia. Return for monitoring labs at least every 3 months-standing orders in epic. Make sure to inform any new MD PA, BEHAVIORAL HEALTH TECHNICIAN about chronic immunosuppression with Rinvoq and Arava, particularly in emergency situation. Assessment & Plan (11/03/2024 7:59 AM EDT): [...] least every 3 months-standing orders in epic. Make sure to inform any new MD PA, BEHAVIORAL HEALTH TECHNICIAN about chronic immunosuppression with Rinvoq and Arava, [...] least every 3 months-standing orders in epic. Make sure to inform any new MD, PA, BEHAVIORAL HEALTH TECHNICIAN about chronic immunosuppression with Rinvoq and Arava, particularly in emergency situation. 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 Assessment & Plan (03/02/2025 3:42 PM EDT): table. Recent A1c of 6.2. Reports fasting blood glucose level of 133 mg/dL this morning. - Eye exam scheduled for 03/2025 at [facility]. Will request a copy Assessment & [...] least every 3 months-standing orders in epic. Make sure to inform any new MD, PA, BEHAVIORAL HEALTH TECHNICIAN about chronic immunosuppression with Rinvoq and Arava, [...] least every 3 months-standing orders in epic. Make sure to inform any new MD, PA, BEHAVIORAL HEALTH TECHNICIAN about chronic immunosuppression with Rinvoq and Arava, [...] at least every 3 months-standing orders in [facility]. Make sure to inform any new EDVIN RODRIGUEZ, BEHAVIORAL HEALTH TECHNICIAN about chronic immunosuppression with Rinvoq and Arava, [...] at least every 3 months-standing orders in [facility]. Make sure to inform any new EDVIN RODRIGUEZ, BEHAVIORAL HEALTH TECHNICIAN about chronic immunosuppression with Rinvoq and Arava, [...] at least every 3 months-standing orders in [facility]. Assessment & Plan (07/07/2024 8:35 AM EST): Take exactly as prescribed. Make sure to avoid alcohol while on Arava. Hold Arava whenever running fever, feeling sick or taking antibiotics. Monitor for unusual nausea, nominal pain, diarrhea, bruising, fatigue etc. Return for monitoring labs at least every 3 months-standing orders in [facility]. Assessment & Plan (12/22/2023 10:10 AM EDT): Take exactly as prescribed. Make sure to avoid alcohol while on Arava. Hold Arava whenever running fever, feeling sick or taking antibiotics. Monitor for unusual nausea, nominal pain, diarrhea, bruising, fatigue etc. Return for monitoring labs at least every 3 months-standing orders in [facility]. Assessment & Plan (09/01/2023 8:30 AM EST): Take exactly as prescribed. Make sure to avoid alcohol while on Arava. Hold Arava whenever running fever, feeling sick or taking antibiotics. Monitor for unusual nausea, nominal pain, diarrhea, bruising, fatigue etc. Return for monitoring labs at least every 3 months-standing orders in [facility]. Assessment & Plan (05/03/2023 8:01 AM EST): Take exactly as prescribed. Make sure to avoid alcohol while on Arava. Hold Arava whenever running fever, feeling sick or taking antibiotics. Monitor for unusual nausea, nominal pain, diarrhea, bruising, fatigue etc. Return for monitoring labs at least every 3 months-standing orders in [facility]. Assessment & Plan (12/17/2022 9:36 AM EDT): Take exactly as prescribed. Make sure to avoid alcohol while on Arava. Hold Arava whenever running fever, feeling sick or taking antibiotics. Monitor for unusual nausea, nominal pain, diarrhea, bruising, fatigue etc. Return for monitoring labs at least every 3 months-standing orders in [facility]. Assessment & Plan (05/25/2022 4:24 PM EST): Take exactly as prescribed. Make sure to avoid alcohol while on Arava. Hold Arava whenever running fever, feeling sick or taking antibiotics. Monitor for unusual nausea, nominal pain, diarrhea, bruising, fatigue etc. Return for monitoring labs at least every 3 months-standing orders in [facility]. Assessment & Plan (02/12/2022 10:52 AM EDT): Take exactly as prescribed. Make sure to avoid alcohol while on Arava. Hold Arava whenever running fever, feeling sick or taking antibiotics. Monitor for unusual nausea, nominal pain, diarrhea, bruising, fatigue etc. Return for monitoring labs at least every 3 months-standing orders in [facility]. Assessment & Plan (12/02/2021 5:49 PM EDT): Take exactly as prescribed. Make sure to avoid alcohol while on Arava. Hold Arava whenever running fever, feeling sick or taking antibiotics. Monitor for unusual nausea, nominal pain, diarrhea, bruising, fatigue etc. Return for monitoring labs at least every 3 months-standing orders in epic. Carpal tunnel syndrome of right wrist 10/03/2021 [...] positive rheumatoid factor 02/03/2019 Assessment & Plan (03/26/2025 7:53 AM EDT): Clinically & lab melchor stable. Carefully continue current daily Rinvoq 15 mg along with Arava 20 mg daily Avoid falls, injuries, overuse and sick contacts. Joint protection, energy conservation techniques. Get labs monitoring safety and efficacy prior to next visit-standing orders in [facility]. Gentle, regular exercise after warm pack or [...] her questions for discussion. Assessment & Plan (11/03/2024 7:58 AM EDT): Clinically & lab melchor stable. Carefully continue current daily Rinvoq 15 mg along with Arava 20 mg daily Avoid falls, injuries, overuse and sick contacts. Joint protection, energy conservation techniques. Get labs monitoring safety and efficacy prior to next visit-standing orders in [facility]. Gentle, regular exercise after warm pack or [...] efficacy prior to next visit-standing orders in [facility]. Gentle, regular exercise after warm pack or [...] efficacy prior to next visit-standing orders in [facility]. Gentle, regular exercise after warm pack or [...] efficacy prior to next visit-standing orders in [facility]. Gentle, regular exercise after warm pack or [...] efficacy prior to next visit-standing orders in [facility]. Gentle, regular exercise after warm pack or [...] efficacy prior to next visit-standing orders in [facility]. Gentle, regular exercise after warm pack or [...] efficacy prior to next visit-standing orders in [facility]. Gentle, regular exercise after warm pack or warm shower as tolerated. Topical cream versus patch as needed. I previously provided her with pamphlets on alternative medications to Enbrel for informational purposes: Dillon Wiley Actem. She read the pamphlets and prefers to [...] or problems. Get yearly influenza vaccine by mid March 2020. Assessment & Plan (11/06/2019 10:04 [...] of left hip 02/03/2019 Assessment & Plan (03/26/2025 7:55 AM EDT): Continue proper calcium and vitamin D supplementation. Fall and fracture prevention strategies and daily weightbearing exercises. Interval bone density from 10/19/2023 at [facility] returned reassuring that she does not require bone preserving therapy at this time. Assessment & Plan (11/03/2024 7:59 AM EDT): Continue proper calcium and vitamin D supplementation. Fall and fracture prevention strategies and daily weightbearing exercises. Interval bone density from 10/19/2023 at [facility] returned reassuring that she does not require bone preserving therapy at this time. Assessment & Plan (07/07/2024 8:34 AM EST): Continue proper calcium and vitamin D supplementation. Fall and fracture prevention strategies and daily weightbearing exercises. Interval bone density from 10/19/2023 at [facility] returned reassuring that she does not require bone preserving therapy at this time. Assessment & Plan (12/25/2023 5:43 PM EDT): Continue proper calcium and vitamin D supplementation. Fall and fracture prevention strategies and daily weightbearing exercises. Interval bone density from 10/19/2023 at [facility] returned reassuring that she does not require [...] reviewed with patient. Discussed potential referral to [facility] health services for medication evaluation and potential [...] as scheduled Fibromyalgia 05/19/2017 Assessment & Plan (03/26/2025 7:54 AM EDT): Due to severe fibromyalgia flare [...] by reading book written by Dr Ravindra call living addressing management strategies for people with fibromyalgia using mindfulness approach. Another good source of self management strategies may be Managing pain before it manages you by Dr. Sarah Lott. In case her anxiety is difficult to manage despite above strategies she may benefit from formal in person or remote psychotherapy. Assessment & Plan (03/02/2025 3:42 PM EDT): [...] by reading book written by Dr Ravindra call living addressing management strategies for people with [...] without esophagi tis 05/19/2017 Assessment & Plan (03/26/2025 7:55 AM EDT): Avoid late, large, spicy meals. Keep headboard elevated at 45 angle for nighttime. Carefully continue omeprazole 20 mg daily as prescribed. Assessment & Plan (11/03/2024 7:59 AM EDT): [...] disease of bone 05/19/2017 Assessment & Plan (03/26/2025 7:53 AM EDT): She reports involvement of calvarium for which she received 2 Reclast infusions in the past. Repeated alk phos returned stable as did skull x-rays from [facility] 02/24/2020 (where she had previous images) Periodic monitoring indicated. Assessment & Plan (11/03/2024 7:59 AM EDT): She reports involvement of calvarium for which she received 2 Reclast infusions in the past. Repeated alk phos returned stable as did skull x-rays from [facility] 02/24/2020 (where she had previous images) Periodic monitoring indicated. Assessment & Plan (07/07/2024 8:34 AM EST): She reports involvement of calvarium for which she received 2 Reclast infusions in the past. Repeated alk phos returned stable as did skull x-rays from [facility] 02/24/2020 (where she had previous images) Periodic monitoring indicated. Assessment & Plan (12/22/2023 10:09 AM EDT): She reports involvement of calvarium for which she received 2 Reclast infusions in the past. Repeated alk phos returned stable as did skull x-rays from [facility] 02/24/2020 (where she had previous images) Periodic monitoring indicated. Assessment & Plan (09/01/2023 8:29 AM EST): She reports involvement of calvarium for which she received 2 Reclast infusions in the past. Repeated alk phos returned stable as did skull x-rays from [facility] 02/24/2020 (where she had previous images) Periodic monitoring indicated. Assessment & Plan (05/03/2023 8:02 AM EST): She reports involvement of calvarium for which she received 2 Reclast infusions in the past. Repeated alk phos returned stable as did skull x-rays from [facility] 02/24/2020 (where she had previous images) Periodic monitoring indicated. Assessment & Plan (12/17/2022 9:34 AM EDT): She reports involvement of calvarium for which she received 2 Reclast infusions in the past. Repeated alk phos returned stable as did skull x-rays from [facility] 02/24/2020 (where she had previous images) Periodic monitoring indicated. Assessment & Plan (05/25/2022 4:25 PM EST): She reports involvement of calvarium for which she received 2 Reclast infusions in the past. Repeated alk phos returned stable as did skull x-rays from [facility] 02/24/2020 (where she had previous images) Periodic monitoring indicated. Assessment & Plan (02/12/2022 10:52 AM EDT): She reports involvement of calvarium for which she received 2 Reclast infusions in the past. Repeated alk phos returned stable as did skull x-rays from [facility] 02/24/2020 (where she had previous images) Periodic monitoring indicated. Assessment & Plan (11/13/2021 3:55 PM EDT): She reports involvement of calvarium for which she received 2 Reclast infusions in the past. Repeated alk phos returned stable as did skull x-rays from [facility] 02/24/2020 (where she had previous images) Periodic monitoring indicated. Assessment & Plan (05/11/2021 8:48 PM EST): She reports involvement of calvarium for which she received 2 Reclast infusions in the past. Repeated alk phos returned stable as did skull x-rays from [facility] 02/24/2020 (where she had previous images) Periodic monitoring indicated. Assessment & Plan (10/07/2020 2:56 PM EDT): She reports involvement of calvarium for which she received 2 Reclast infusions in the past. Repeated alk phos returned stable as did skull x-rays from [facility] 02/24/2020 (where she had previous images) Periodic monitoring indicated. Assessment & Plan (07/09/2020 5:29 PM EST): She reports involvement of calvarium for which she received 2 Reclast infusions in the past. Repeated alk phos returned stable as did skull x-rays from [facility] 02/24/2020 (where she had previous images) Periodic monitoring indicated. Assessment & Plan (04/29/2020 8:45 AM EST): She reports involvement of calvarium for which she received 2 Reclast infusions in the past. She is symptomatic, alk phos is slightly elevated-repeat today and if ongoing elevation get skulll x-rays preferably at [facility] where she had previous images. Assessment & Plan (02/20/2020 3:39 PM EDT): She reports involvement of calvarium for which she received 2 Reclast infusions in the past. She is symptomatic, alk phos is slightly elevated-repeat today and if ongoing elevation get skulll x-rays preferably at [facility] where she had previous images. Assessment [...] Problem Noted Date Diagnosed Date Resolved Date Tendinopathy of right rotator cuff 05/03/2023 03/02/2025 Assessment [...] its usual weekly schedule. Inform any new MD PA, BEHAVIORAL HEALTH TECHNICIAN about chronic immunosuppression with Enbrel whenever requiring emergency care. Assessment & Plan (07/08/2020 9:43 AM EST): Continue weekly subcutaneous injections every Wednesday. Hold Enbrel if feeling sick, running fever or taking antibiotics. Complete entire course of antibiotic and wait at least 48 hours after the last dose of antibiotic before restarting Enbrel on its usual weekly schedule. Inform any new EDVIN RODRIGUEZ, BEHAVIORAL HEALTH TECHNICIAN about chronic immunosuppression with Enbrel whenever requiring emergency care. Assessment & Plan (04/30/2020 11:45 AM EST): Continue weekly subcutaneous injections every Wednesday. Hold Enbrel if feeling sick, running fever or taking antibiotics. Complete entire course of antibiotic and wait at least 48 hours after the last dose of antibiotic before restarting Enbrel on its usual weekly schedule. Inform any new MD PA, BEHAVIORAL HEALTH TECHNICIAN about chronic immunosuppression with Enbrel whenever requiring emergency care. Trochanteric bursitis 04/29/20202019 Methotrexate, detention, current use 08/14/2019 04/30/2020 Assessment & Plan [...] active while taking methotrexate Inform any new MD PA, BEHAVIORAL HEALTH TECHNICIAN about chronic therapy with methotrexate particularly in emergency situations. Assessment & Plan (11/06/2019 8:19 AM EDT): Take exactly as prescribed. Hold methotrexate whenever running fever, feeling sick or taking antibiotics. Refrain from alcohol drinking while taking methotrexate. Use double contraception if sexually active while taking methotrexate Inform any new EDVIN RODRIGUEZ BEHAVIORAL HEALTH TECHNICIAN about chronic therapy with methotrexate particularly in emergency situations. Assessment & Plan (08/17/2019 8:57 PM EST): Take exactly as prescribed. Hold methotrexate whenever running fever, feeling sick or taking antibiotics. Refrain from alcohol drinking while taking methotrexate. Use double contraception if sexually active while taking methotrexate Inform any new EDVIN RODRIGUEZ BEHAVIORAL HEALTH TECHNICIAN about chronic therapy with methotrexate particularly in [...] in the office and given in writing. half-way current use of non -steroidal anti-inflammatories (NSAID) [...] 4:55 PM EDT): Close follow-up with PCP, etched circuit processor and diabetic nurse educator as scheduled. Aim at BS=90-110 mg % Assessment & Plan (02/25/2019 9:22 PM EDT): Close follow-up with PCP, etched circuit processor and diabetic nurse educator as scheduled. Aim at BS=90-110 mg % Encounters Date Type Department Care Team Description 03/27/2025 Refill [facility] [address] [place] [address] Lavelle Alicea DO Med Change Request 03/27/2025 Orders Only [facility] [address] [place] [address] Lavelle Alicea DO Type 2 diabetes mellitus with right eye affected by mild nonproliferative retinopathy without macular edema, without long-term current use of insulin (Primary Dx) 03/27/2025 Refill [facility] [address] [place] [address] Lavelle Alicea DO Med Change Request 03/26/2025 8:16 AM EDT - 03/26/2025 11:59 PM EDT Hospital Encounter [facility] [address] [place] [address] Madhuri Max MD Discharge Disposition: Home or Self Care 03/26/2025 8:00 AM EDT Office Visit [facility] [address] [place] [address] Madhuri Max MD Rheumatoid arthritis involving multiple sites with positive rheumatoid factor (Primary Dx); Paget's disease of bone; half-way current use of 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; Fibromyalgia; Osteopenia of left hip; Gastroesophageal reflux disease without esophagitis; Type 2 diabetes mellitus with right eye affected by mild nonproliferative retinopathy without macular edema, without long-term current use of insulin; On statin therapy 03/02/2025 8:40 AM EDT Office Visit [facility] [address] [place] [address] Nakita Bella MD Abnormal abdominal MRI (Primary Dx); Fibromyalgia; Essential hypertension; Type 2 diabetes mellitus with right eye affected by mild nonproliferative retinopathy without macular edema, without long-term current use of insulin; Mild persistent asthma without complication 02/04/2025 Refill [facility] [address] [place] [address] Hailey Decker, ABRAHAM Medication Refill 01/26/2025 Refill [facility] [address] [place] [address] Lavelle Alicea DO Med Change Request 12/28/2024 Refill [facility] [address] [place] [address] Madhuri Max MD Med Change Request from Last 3 Months Immunizations Immunization Administration [...] high school, GED, job training, learning the Tajik language, technical skills, or developing parenting skills)? [...] Pulse 95 03/26/2025 7:52 AM EDT Temperature 36.8 C (98.3 F) 10/18/2024 2:26 PM EDT Respiratory Rate 16 06/25/2023 1:23 PM EST Oxygen Saturation 99% 03/26/2025 7:52 AM EDT Inhaled Oxygen Concentration - - Weight 71.6 kg (157 lb 12.8 oz) 03/26/2025 7:52 AM EDT Height 154.9 cm (5' 1 ) 03/26/2025 7:52 AM EDT Body Mass Index 29.82 03/26/2025 7:52 AM EDT Plan of Treatment Upcoming Encounters Date Type Department Care Team (Late st Contact Info) Description 07/30/2025 8:30 AM EST Office Visit [facility] [address] [place] [address] Lavelle Alicea DO [address] [place] [address] 08/01/2025 8:00 AM EST Office Visit [facility] [address] [place] [address] Madhuri Mxa MD [address] [facility], [address] [place] [address] 09/04/2025 10:00 AM EDT Office Visit [facility] [address] [facility] [address] [place] [address] Nakita Bella MD [address] [facility] [address] [place] [address] Health Maintenance Due Date Last Done Comments COLOGUARD 2003 FIT TEST 2003 FOBT 2003 SIGMOIDOSCOPY 2003 VIRTUAL COLONOSCOPY 2003 DIABETIC EYE EXAM 05/13/2024 05/13/2023, , 02/15/2019, Additional history exists COVID-19 VACCINE (8 - Moderna risk season) 2025 02/25/2024, 03/29/2023, 05/14/2022, Additional history exists DEPRESSION SCREENING 03/31/2025 03/31/2024, 03/31/20 HEMOGLOBIN A1C 03/31/2025 09/29/2024, 06/2023, 12/14/2023, Additional history exists BLOOD PRESSURE 09/23/2025 03/26/2025 FOLLOW UP BONE DENSITY TESTING 10/18/2025 10/19/2023, 09/01/2023, 10/17/2021, Additional history exists CREATININE LEVEL 03/26/2026 03/26/2025, , 10/18/2024, Additional history exists POTASSIUM LEVEL 03/26/2026 03/26/2025, 09/28, 10/18/2024, Additional history exists PNEUMOCOCCAL VACCINES (50+ years) [...] STATUS SCREENING (Once After 26 Yrs) Completed 03/26/2025 HEPATITIS A VACCINES Aged Out No long [...] Procedure Name Priority Date/Time Associated Diagnosis Comments CPK (CREATINE KINASE) Routine 03/26/2025 8:20 AM EDT On statin therapy COMPREHENSIVE METABOLIC PANEL Routine 03/26/2025 8:20 AM EDT Rheumatoid arthritis involving multiple sites with positive rheumatoid factor Paget's disease of bone half-way current use of 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 Encounter for monitoring Arava therapy C-REACTIVE PROTEIN Routine 03/26/2025 8: 20 AM EDT Rheumatoid arthritis involving multiple sites with positive rheumatoid factor Paget's disease of bone half-way current use of 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 Encounter for monitoring Arava therapy SEDIMENTATION RATE (ESR) Routine 03/26/2025 8:20 AM EDT Rheumatoid arthritis involving multiple sites with positive rheumatoid factor Paget's disease of bone half-way current use of 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 Encounter for monitoring Arava therapy CBC AND DIFFERENTIAL Routine 03/26/2025 8:20 AM EDT Rheumatoid arthritis involving multiple sites with positive rheumatoid factor Paget's disease of bone 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 press operator current use of 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 Encounter for monitoring Arava therapy HEMOGLOBIN A1C Routine 09/29/2024 8:09 AM EDT Type 2 diabetes mellitus with right eye affected by mild nonproliferative retinopathy without macular edema, without long-term current use of insulin HM MAMMOGRAPHY Routine 05/15/2024 4:25 PM EST DEXA [...] Maintenance Results * (ABNORMAL) Comprehensive metabolic panel (03/26/2025 8:20 AM EDT) SODIUM 140 133 - 146 mmol/L [facility] POTASSIUM 4.8 3.3 - 5.1 mmol/L [facility] CHLORIDE 103 96 - 108 mmol/L [facility] CO2 29 21 - 35 mmol/L [facility] BUN 18 6 - 19 mg/dL [facility] CREATININE 0.80 0.5 - 1.5 mg/dL [facility] GLUCOSE 159(H) 70 - 99 mg/dL [facility] ALBUMIN 4.3 3.9 - 4.8 g/dL [facility] TOTAL PROTEIN 7.3 6.5 - 8.0 g/dL [facility] CALCIUM 9.4 8.4 - 10.3 mg/dL [facility] ALKALINE PHOSPHATASE 95 39 - 117 U/L [facility] TOTAL BILIRUBIN 0.3 0.0 - 1.2 mg/dL [facility] AST 22 0 - 37 U/L [facility] ALT 17 0 - 40 U/L [facility] GLOBULIN 3.0 1 - 4.8 g/dL [facility] EGFR 81 >59 mL/min/1.7 3m2 [facility] Comment:Estimated glomerular filtration rate calculated using the CKD-EPI refit equation. ANION GAP 13 10 - 20 mmol/L [facility] Blood 03/26/2025 8:20 AM EDT 03/26/2025 8:27 AM EDT us Madhuri Max MD LAB BLOOD ORDERABLES Fin al Result Performing Organization Address City/[facility]/ZIP Co de Phone Number [address] [address] * Sedimentation rate (ESR) (03/26/2025 8:20 AM EDT) ESR 7 0 - 30 mm/h [facility] Blood 03/26/2025 8:20 AM EDT 03/26/2025 8:27 AM EDT us Madhuri Max MD LAB BLOOD ORDERABLES Fin al Result [facility] [address] [place] [address] * CBC and differential (03/26/2025 8:20 AM EDT) WBC 4.87 4.00 - 11.00 K/uL [facility] RBC 4.03 4.00 - 5.20 M/uL [facility] HGB 12.3 12.0 - 16.0 g/dL [facility] HCT 38.3 36.0 - 46.0 % [facility] PLT 236 150 - 450 K/uL [facility] MCV 95.0 80.0 - 100.0 fL [facility] MCH 30.5 27.0 - 31.0 pg [facility] MCHC 32.1 32.0 - 36.0 g/dL [facility] RDW 11.9 11.5 - 14.5 % [facility] MPV 11.4 8.4 - 12.0 fL [facility] NRBC 0.00 0.00 /100 WBCs [facility] ABSOLUTE NRBC 0.00 0.00 K/uL [facility] DIFF METHOD Auto [facility] NEUTS 62.7 48.0 - 76.0 % [facility] LYMPHS 28.7 18.0 - 41.0 % [facility] MONOS 7.0 4.0 - 11.0 % [facility] EOS 0.6 0.0 - 5.0 % [facility] BASOS 0.6 0.0 - 1.5 % [facility] Granulocytes, immature (%) 0.4 0.0 - 0.9 % [facility] ABSOLUTE NEUTS 3.05 1.92 - 7.60 K/uL [facility] ABSOLUTE LYMPHS 1.40 0.72 - 4.10 K/uL [facility] ABSOLUTE MONOS 0.34 0.16 - 1.10 K/uL [facility] ABSOLUTE EOS 0.03 0.00 - 0.50 K/uL [facility] ABSOLUTE BASOS 0.03 0.00 - 0.15 K/uL [facility] Granulocytes, immature 0.02 0.00 - 0.09 K/uL [facility] Blood 03/26/2025 8:20 AM EDT 03/26/2025 8:27 AM EDT us Madhuri Max MD LAB BLOOD ORDERABLES Fin al Result Performing Organization Address City/[facility]/ZIP Co de Phone Number [address] [address] * C-Reactive Protein (03/26/2025 8:20 AM EDT) C REACTIVE PROTEIN <3.0 0.0 - 4.0 mg/L [facility] Blood 03/26/2025 8:20 AM EDT 03/26/2025 8:27 AM EDT us Madhuri Max MD LAB BLOOD ORDERABLES Fin al Result Performing Organization Address [facility] Co de Phone Number [address] [address] * CPK (creatine kinase) (03/26/2025 8:20 AM EDT) CREATINE KINASE 152 21 - 215 U/L [facility] Blood 03/26/2025 8:20 AM EDT 03/26/2025 8:27 AM EDT us Madhuri Max MD LAB BLOOD ORDERABLES Fin al Result Performing Organization Address City/[facility]/ZIP Co de Phone Number [address] [address] * (ABNORMAL) Hemoglobin A1c (09/29/2024 8:09 AM EDT) HEMOGLOBIN A1C 6.2(H) 4.3 - 5.8 % [facility] Blood 09/29/2024 8:09 AM EDT 09/29/2024 8:11 AM EDT us Lavelle Buffalo DO LAB BLOOD ORDERABLES Final Resul t Performing Organization Address [facility] Co de Phone Number [address] [address] * MAMMOGRAPHY FOR RESULT ENTRY ONLY (05/15/2024 4:25 PM EST) Historical Provider HEALTH MAINTENANCE Edited Result - Final * DEXA SCAN (10/19/2023 2:31 PM EDT) Historical Provider HEALTH MAINTENANCE Edited Result - Final * DIABETES EYE EXAM FOR RESULT ENTRY ONLY (05/13/2023) EYE EXAM see report Historical Provider HEALTH MAINTENANCE Final Result * HM COLONOSCOPY FOR RESULT ENTRY ONLY (03/10/2021) [facility] Provider HEALTH MAINTENANCE Edited Result - Final * Hepatitis C antibody, qualitative (12/08/2019 10:09 AM EDT) HCV NON-REACTIV E NON-REACTI VE [facility] Blood 12/08/2019 10:0 9 AM EDT 12/08/2019 10:13 AM EDT Madhuri Max MD LAB BLOOD ORDERABLES Fin al Result Performing Organization Address [facility]/ZIP Co de Phone Number [address] [address] from Last 3 Months or Most Recently Relevant to Health Maintenance Insurance MEDICARE PART A & B [facility] [employer] MEDICARE SUPPLEMENT MEDICARE PART A & B [facility] MEDICARE SUPPLEMENT [facility] [employer] MEDICARE SUPPLEMENT [address] [place], [place] [address]ially [facility] [employer]ION MEDICARE SUPPLEMENT MED[place] PART A [place] [id number] [facility] MEDICARE SUPPLEMENT [facility] MEDICARE SUPPLEMENT MEDICARE PART A & B [facility] [employer] MEDICARE SUPPLEMENT MEDICARE PART A & B [employer] MED[employer]ARE SUPPLEMENT MEDICARE PART A & B [employer] MEDICARE SUPPLEMENT Care Teams Collar Sewer Relationship Specialty Start Date End Date Nakita Bella MD [address] [address] [email or web address] PCP - General Family Medicine 08/17/24 Freddy Oquendo MD [address] [place] [address] Historical LMR Provider 04/13/17 Anu Millan NP [address] [place] [address] Historical LMR Provider 04/13/17 Altaf Moses MD [address] [place] [address] Ophthalmology 12/16/21 Additional Source Comments The information contained in this document represents components of the legal health record. It is not the complete legal health record.[facility]
--- OUTSIDE RECORDS SUMMARY | 2025-03-28 08:00 | XMS_ITS | Encounter Summary ---
Author Organization [facility] Address [address] [place] [address] Phone Care Team Providers Care Neonatal Nurse Practitioner Name Role Phone Freddy Oquendo MD Unavailable [phone] Anu Millan NP Unavailable [phone] Altaf Moses MD Unavailable [phone] Nakita Bella MD Primary Care Provider Reason for Visit * Reason Comments Med Change Request Encounter Details Date Type Department Care Team (Late st Contact Info) Description 03/27/2025 Refill [facility] [address] [place] [address] Lavelel Alicea DO [address] [place] [address] [email or web address] Med Change Request Social History Tobacco Use [...] high school, GED, job training, learning the Georgian language, technical skills, or developing parenting skills)? [...] as of this encounter Progress Notes * Lavelle Alicea DO - 03/27/2025 3:29 PM EDT I sent a freestyle hong 3+. Actually I am not sure whether I should be sending a Dexcom or freestyle hong. * Ofe Rodriguez CMA - 03/27/2025 3:21 PM EDT Pt called left a message that she that she in need of a hong I called and spoke to the pt she stated that she was using hong 2 and that the pharmacy stated that the hong 2 is no longer be made. she asked for the hong 3+ sensors and she will use her phones * Fani Conway MA - 03/27/2025 2:49 PM EDT Prior auth sent to insurance documented in this encounter Plan of Treatment Upcoming Encounters Date Type Department Care Team (Late st Contact Info) Description 07/30/2025 8:30 AM EST Office Visit [facility] [address] [place] [address] [place] [address] Lavelle Alicea DO [address] [place] [address] 08/01/2025 8:00 AM EST Office Visit [facility] Rheumatology [address] [place] [address] [place] [address] Madhuri Max MD [address] [place] [address], [address] [place] [address] 09/04/2025 10:00 AM EDT Office Visit [facility] [place] [facility] [address] [facility] [address] [place] [address] Nakita Bella MD 15 [facility] 201 [place] [address] [email or web address] documented as of this encounter Visit Diagnoses [...] documented as of this encounter Care Teams Neonatal Nurse Practitioner Relationship Specialty Start Date End Date Nakita Bella MD 15 [facility] 201 [place] [address] PCP - General Family Medicine 08/17/24 Freddy Oquendo MD 40 [place] [address] Historical LMR Provider 04/13/17 Anu Millan NP [address] [place] [address] [email or web address] Historical LMR Provider 04/13/17 Altaf Moses MD [address] [place] [address] Dr [address] [place] [address] Ophthalmology 12/16/21 documented as of this encounter Additional Source Comments The information contained in this document represents components of the legal health record. It is not the complete legal health record.[facility]
--- OUTSIDE RECORDS SUMMARY | 2025-03-28 08:00 | XMS_ITS | Encounter Summary ---
Author Organization [facility] Address [address] [facility] [address] [place] [address] Phone Care Team Providers Care Aggregate Conveyor Operator Name Role Phone Freddy Oquendo MD Unavailable [phone] Anu Millan NP Unavailable [phone] Altaf Moses MD Unavailable Nakita Bella MD Primary Care Provider Reason for Visit * Reason Comments Medication Refill Encounter Details Date Type Department Care Team (Late st Contact Info) Description 02/04/2025 [facility] [address] [facility] [address] [place] [address] Hailey Decker FNP [address] [facility] [address] [place] [address] [email or web address] Medication Refill Social History Tobacco Use Types [...] AM EST Office Visit [facility] [address] [place] [address] Lavelle Alicea DO [address] [place] [address] 08/01/2025 8:00 AM EST Office Visit [facility] Rheumatology [address] [place] [address] Madhuri Max MD [address] [facility], [address] [place] [address] 09/04/2025 10:00 AM EDT Office Visit [facility] [address] [facility] 201 [place] [address] Nakita Bella MD 15 [facility] [address] [place] [address] documented as of this encounter Visit Diagnoses Not on filedocumented in this encounter Additional Health Concerns Assessment Noted Time PHQ-9 Depression Total Score: 5 03/31/20 24 10:36 AM EDT PHQ-2 Depression Total Score: 2 03/31/20 24 10:36 AM EDT documented as of this encounter Care Teams Aggregate Conveyor Operator Relationship Specialty Start Date End Date Nakita Bella MD [address] [address] PCP - General Family Medicine 08/17/24 Freddy Oquendo MD 40 [place] [address] Historical LMR Provider 04/13/17 Anu Millan NP [address] [place] [address] Historical LMR Provider 04/13/17 Altaf Moses MD [address] [place] [address] Ophthalmology 12/16/21 documented as of this encounter Additional Source Comments The information contained in this document represents components of the legal health record. It is not the complete legal health record.[facility]
--- OUTSIDE RECORDS SUMMARY | 2025-03-28 08:00 | XMS_ITS | Encounter Summary ---
Author Organization [facility] Address [address] [place] [address] Phone Care Team Providers Care Management Supervisor Name Role Phone Freddy Oquendo MD Unavailable Anu Millan NP Unavailable [phone] Altaf Moses MD Unavailable Nakita Bella MD Primary Care Provider Encounter Details Date Type Department Care Team (Late st Contact Info) Description 03/27/2025 Orders Only [facility] 22 [place], [place] [id number] Lavelle Alicea DO 22 [place] [address] Type 2 diabetes mellitus with right eye affected by mild nonproliferative retinopathy without macular edema, without long-term current use of insulin (Primary Dx) Social History Tobacco Use Types Packs/Day Years [...] high school, GED, job training, learning the German language, technical skills, or developing parenting skills)? [...] AM EST Office Visit [facility] [address] [place] [address] Lavelle Alicea DO 22 [place] [address] 08/01/2025 8:00 AM EST Office Visit [facility] Rheumatology [address] [place] [address] Madhuri Max MD 22 [facility], [address] [place] [address] 09/04/2025 10:00 AM EDT Office Visit [facility] [facility] 15 [facility] 201 [place] [address] Nakita Bella MD 15 [facility]. [address] [place] [address] documented as of this encounter Visit Diagnoses Diagnosis Type 2 diabetes mellitus with right eye affected by mild nonproliferative retinopathy without macular edema, without long-term current use of insulin- Primary documented in this encounter Additional Health Concerns Assessment Noted Time PHQ-9 Depression Total Score: 5 03/31/20 24 10:36 AM EDT PHQ-2 Depression Total Score: 2 03/31/20 24 10:36 AM EDT documented as of this encounter Care Teams Management Supervisor Relationship Specialty Start Date End Date Nakita Bella MD 15 [facility]. 201 [place] [address] PCP - General Family Medicine 08/17/24 Freddy Oquendo MD [address] [place] [address] [email or web address] Historical LMR Provider 04/13/17 Anu Millan NP [address] [place] [address] Historical LMR Provider 04/13/17 Altaf Moses MD [address] [place] [address] [place] [address] Ophthalmology 12/16/21 documented as of this encounter Additional Source Comments The information contained in this document represents components of the legal health record. It is not the complete legal health record.[facility]
== END ==
LOC: HO.NUCMED 07:55
PROVIDERS: PCP Registered Nurse; Visit Provider Nurse Practitioner Family
DX: R68.81 Early satiety (principal)
CPT/HCPCS: 78264; A9541

== ENCOUNTER → 2025-03-28 07:57 | Outpatient (BNV) | payer MEDICARE, OTHER, SELFPAY | PROVIDERS: PCP Registered Nurse; Visit Provider Radiology Diagnostic Radiology | DX: R68.81 Early satiety (principal) | CPT/HCPCS: 78264 ==